=== PATIENT | female | born 1980 ===

== ENCOUNTER 2020-07-31 19:12 | Outpatient (REF) | payer SELFPAY ==
--- NOTE | 2020-07-31 | MR_ITS ---
EXAMINATION: MR LUMBAR SPINE WITHOUT CONTRAST CLINICAL INFORMATION: Lower back pain. Bilateral leg weakness, right leg numbness, bilateral leg pain, left toe numbness. COMPARISON: Multiple priors, most recent lumbar spine MRI dated 11/23/2012 TECHNIQUE: MRI of the lumbar spine was obtained using routine sequences without contrast. FINDINGS: VERTEBRAL BODIES AND PARASPINAL STRUCTURES: There appear to be 6 [id number] lumbar-type vertebral bodies. The superior-most of which will be labeled T12 as on a saved image and keeping with labeling on the prior examination. Normal vertebral body alignment. The lumbar lordosis is maintained. No acute fracture or subluxation. No loss of vertebral body height. Loss of intervertebral disc height with disc desiccation at T11-T12 and L5-S1. Redemonstration of a right midpole simple-appearing renal cyst. Otherwise, the visualized paraspinal soft tissues are unremarkable. CONUS MEDULLARIS AND CAUDA EQUINA: Normal, terminating at the level of L1. SPINAL LEVELS: T11-T12: Posterior central disc protrusion which partially effaces the ventral thecal sac. No significant central canal or neural foraminal stenosis. Findings are unchanged. T12-L1: Shallow right paracentral disc protrusion without significant central canal or neural foraminal stenosis. Findings are unchanged. L1-L2: No significant disc bulge. No central canal or neural foraminal stenosis. L2-L3: Minimal broad-based disc bulge without significant central canal or neural foraminal stenosis, unchanged. L3-L4: Mild broad-based disc bulge with bilateral facet arthropathy and thickening of the ligamentum flavum causing mild bilateral neural foraminal stenosis, progressed when compared to the prior examination. L4-L5: Broad-based disc bulge, asymmetric to the left, with bilateral facet arthropathy and thickening of the ligamentum flavum causing mild central canal and mild bilateral neural foraminal stenosis. Findings have progressed when compared to the prior examination. L5-S1: Broad-based disc bulge with a superimposed left subarticular disc protrusion which contacts the exiting left L5 nerve root as well as the traversing left S1 nerve root. Bilateral facet arthropathy with moderate right and [id number] left neural foraminal stenosis. Overall, findings are similar when compared to the prior examination. MR/MR lumbar spine wo con IMPRESSION: 1. Redemonstration of an L5-S1 broad-based disc bulge and superimposed left subarticular disc protrusion which contacts the exiting left L5 nerve root as well as the traversing left S1 nerve root. Bilateral facet arthropathy with moderate right and [id number]-ij-[id number] left neural foraminal stenosis. Findings are similar when compared to the MRI from 2013. 2. L3-L4 mild broad-based disc bulge with bilateral facet arthropathy and thickening of the ligamentum flavum causing mild bilateral neural foraminal stenosis, slightly progressed when compared to the prior examination. 3. L4-L5 broad-based disc bulge, asymmetric to the left, with bilateral facet arthropathy and thickening of the ligamentum flavum causing mild central canal as well as mild bilateral neural foraminal stenosis, slightly progressed when compared to the prior examination.
== END 2020-07-31 19:13 | disposition home or self-care (01) ==
LOC: HO.MRI 19:12
PROVIDERS: Visit Provider Internal Medicine
DX: M51.26 Other intervertebral disc displacement, lumbar region (principal)
CPT/HCPCS: 72148

== ENCOUNTER 2021-04-14 08:11 | Outpatient (REF) | payer MEDICAID, SELFPAY ==
[2021-04-14 09:58] LABS: Hematocrit 40.3 % (37-47); Hemoglobin 12.8 g/dl (12.0-16.0); Mean Corpuscular HGB Conc 31.8 g/dl (31.0-35.0); Mean Corpuscular Hemoglobin 25.9 pg (27.0-33.0); Mean Corpuscular Volume 81.6 fL (80-98); Mean Platelet Volume 10.4 fL (9.4-12.3); Platelet Count 279 X10*3/uL (160-400); Red Blood Count 4.94 X10*6/uL (4.20-5.50); Red Cell Distribution Width 16.4 % (11.0-16.0); White Blood Count 8.2 X10*3/uL (4.8-10.8)
[2021-04-14 11:17] LABS: TSH reflex Free T4 0.42 uIU/mL (0.32-4.0)
== END 2021-04-14 08:12 | disposition home or self-care (01) ==
LOC: HO.LAB 08:11
PROVIDERS: PCP Internal Medicine; Referring Provider Internal Medicine; Visit Provider Nurse Practitioner Family
DX: K21.9 Gastro-esophageal reflux disease without esophagitis (principal)
CPT/HCPCS: 36415; 84443; 85027; 99202

== ENCOUNTER 2021-09-04 09:31 | Outpatient (REF) | payer MEDICAID, SELFPAY ==
--- NOTE | 2021-09-04 08:41 | EMG_ITS ---
Bilateral median and ulnar motor and sensory studies were performed. Bilateral radial sensory studies were performed and paraspinal muscles were tested. IMPRESSION: 1. Dorj-zt-nupcbnhl left and mild right median neuropathy across carpal tunnel. 2. Mild bilateral ulnar neuropathy across cubital tunnel. MD KINGS [place]/STEF / [id number]
== END 2021-09-04 09:32 | disposition home or self-care (01) ==
LOC: HO.NEURO 09:31
PROVIDERS: Visit Provider Internal Medicine
DX: R20.0 Anesthesia of skin (principal)
CPT/HCPCS: 95886; 95911

== ENCOUNTER 2021-09-12 08:56 | Emergency (ER) | payer MEDICAID, SELFPAY ==
[2021-09-12 09:07] VITALS: BP 151/81; PULSE 89; RESP 18; TEMP 36.9; O2SAT 99; BMI 32.1
[2021-09-12 09:30] LABS: COVID-19 Test Positive (Negative)
--- NOTE | 2021-09-12 10:14 | ED.GENADULT ---
HPI - General Adult General Chief complaint: Upper Respiratory Symptoms Stated complaint: Body aches/sore throat Time Seen by Provider: 09/12/21 09:24 History of Present Illness HPI narrative: Patient complains of cough body aches fatigue runny nose and a mild headache, she did have a close COVID exposure and symptoms have been going on for 3 days, she is not vaccinated Related Data Home Medications Medication Instructions Recorded Confirmed omeprazole 40 mg capsule,delayed 40 mg PO DAILY 04/14/21 release Previous Rx's Medication Instructions Recorded famotidine 20 mg tablet (Pepcid) 20 mg PO BEDTIME #30 tab 04/14/21 Allergies Allergy/AdvReac Type Severity Reaction Status Date / Time ibuprofen [IBUPROFEN] Allergy Unknown ABDOMINAL Verified 09/12/21 09:07 PAIN metformin [METFORMIN] Allergy Unknown ANAPHYLAXIS Verified 09/12/21 09:07 shrimp [SHRIMP] Allergy Unknown ANAPHYLAXIS Verified 09/12/21 09:07 theophylline [Theophylline] Allergy Unknown RASH Verified 09/12/21 09:07 theodur Allergy Unknown vomiting Uncoded 04/28/12 00:00 Review of Systems Review of Systems: Positive for runny nose mild cough body aches fatigue for 3 days Negatives are no fever no chills no dizziness no weakness no fainting no feeling faint no stiff neck no sore throat no chest pain no shortness of breath no sputum no abdominal pain no nausea or vomiting Yes all other systems are reviewed and are negative PMFSH Past Medical History Source: nursing notes reviewed Social History Social History Advance Directives: No Advance Directives Information Provided: Yes Physical Exam Vital Signs: Vital Signs: Last Vital Signs Temp 98.5 F 09/12/21 09:07 Pulse 89 09/12/21 09:07 Resp 18 09/12/21 09:07 BP 151/81 H 09/12/21 09:07 Pulse Ox 99 09/12/21 09:07 BMI result Body Mass Index 32.1 General appearance no distress Eyes no redness or discharge The sinuses nontender The pharynx is clear with no redness swelling or exudate, mucous membranes moist Neck is supple Chest clear to auscultation bilateral Heart no murmur Abdomen soft nontender Extremities full range of motion x4 Course Course Course Narrative: Patient is diabetic, unvaccinated and COVID positive so is referred for monoclonal antibody treatment Patient is well-appearing now and is discharged Medical Decision Making Lab Data Labs: Lab Results 09/12/21 Range/Units 09:12 COVID-19 ([facility]) Positive A (Negative) COVID-19 Clin Com See Note Discharge Plan Discharge Clinical Impression: COVID-19 Patient Disposition: Home, Self-Care Additional Instructions: You tested positive for COVID Because of her diabetes you at higher risk for severe disease so we highly recommend you go for the monoclonal antibodies which reduce severity of COVID You have the sheet and if they do not call you you can call them Return to the ER any time any worse condition or any concerns, especially shortness of Prescriptions: No Action famotidine [Pepcid] 20 mg tablet 20 mg PO BEDTIME Qty: 30 RF: 3 Stand Alone Forms: Work/School Release Interventions: ED Discharge Assessment Last Done: 09/12/21 10:27 Discharge Date/Time: 09/12/21 10:27
== END 2021-09-12 10:27 | disposition home or self-care (01) ==
PROVIDERS: Emergency Provider Emergency Medicine; PCP Internal Medicine
DX: U07.1 COVID-19 (principal)
CPT/HCPCS: 36415; 87635; 99283

== ENCOUNTER 2021-09-17 10:00 | Emergency (ER) | payer MEDICAID, SELFPAY ==
--- NOTE | ~2021-09-17 | CT_ITS ---
EXAMINATION: CT BRAIN AND CT CERVICAL SPINE WITHOUT CONTRAST CLINICAL INFORMATION: Fall. Neck pain and headache. COMPARISON: None TECHNIQUE: 5 minutes thin axial and reformatted 2 mm thin sagittal coronal images of brain were obtained. Subsequently axial 3 mm thin and reformatted 2 minutes thin sagittal coronal images of cervical spine were obtained. DLP 2300 FINDINGS: Brain: There is no acute intra-axial, extra-axial bleed, masses or midline shift. Both lateral ventricles are symmetrical in size and configuration without enlargement. There is no acute infarction in evolution. There is no edema. The marcano to white matter difference is maintained normal. Bone windows reveal no calvarial abnormality. There is no scalp soft tissue abnormality either. Bilateral paranasal sinuses and mastoid air cells are well-aerated. Cervical spine: There is mild straightening of cervical lordosis. The vertebral heights, alignment and disc heights are normal. There is mild ventral and posterior spondylosis C4-C5 and C5-C6 disc levels. The craniovertebral junction and the C1-C2 alignment is normal. The prevertebral and paravertebral soft tissues are normal. The airway is widely patent. The lung apices are clear. CT/CT cervical spine wo con IMPRESSION: No acute intracranial process seen. Mild straightening of cervical lordosis likely spasm or positional. There is no visible acute fracture, dislocation or subluxation.
--- NOTE | ~2021-09-17 | CT_ITS ---
EXAMINATION: CT BRAIN AND CT CERVICAL SPINE WITHOUT CONTRAST CLINICAL INFORMATION: Fall. Neck pain and headache. COMPARISON: None TECHNIQUE: 5 minutes thin axial and reformatted 2 mm thin sagittal coronal images of brain were obtained. Subsequently axial 3 mm thin and reformatted 2 minutes thin sagittal coronal images of cervical spine were obtained. DLP 2300 FINDINGS: Brain: There is no acute intra-axial, extra-axial bleed, masses or midline shift. Both lateral ventricles are symmetrical in size and configuration without enlargement. There is no acute infarction in evolution. There is no edema. The marcano to white matter difference is maintained normal. Bone windows reveal no calvarial abnormality. There is no scalp soft tissue abnormality either. Bilateral paranasal sinuses and mastoid air cells are well-aerated. Cervical spine: There is mild straightening of cervical lordosis. The vertebral heights, alignment and disc heights are normal. There is mild ventral and posterior spondylosis C4-C5 and C5-C6 disc levels. The craniovertebral junction and the C1-C2 alignment is normal. The prevertebral and paravertebral soft tissues are normal. The airway is widely patent. The lung apices are clear. CT/CT head/brain wo con IMPRESSION: No acute intracranial process seen. Mild straightening of cervical lordosis likely spasm or positional. There is no visible acute fracture, dislocation or subluxation.
--- NOTE | ~2021-09-17 | XR_ITS ---
EXAMINATION: XR CHEST CLINICAL INFORMATION: SOB, fall, diminished lung sounds. COMPARISON: None TECHNIQUE: Frontal view of the chest was obtained. FINDINGS: The lungs are well-expanded and clear of acute pneumonic process. There is platelike atelectasis right midlung. Heart size and pulmonary vascularity is normal. No gross bony abnormality seen. XR/XR chest 1V IMPRESSION: Platelike atelectasis right midlung.
--- NOTE | ~2021-09-17 | CT_ITS ---
EXAMINATION: CT CHEST, ABDOMEN AND PELVIS WITH CONTRAST CLINICAL INFORMATION: Chest pain with cough and shortness of breath with abdominal and pelvic pain. COMPARISON: No pertinent prior studies are available for comparison. TECHNIQUE: Multidetector volumetric imaging was performed from the thoracic inlet through the pubic symphysis following administration of oral and intravenous contrast of 100 mL Ultravist-300 intravenous contrast. Sagittal and coronal reformatted images were obtained on the technologist workstation. This CT examination was performed using dose optimization techniques as appropriate, variously including the following: *Automated exposure control *Adjustment of mA and/or kV according to patient size (this includes techniques or standardized protocols for targeted exams where dose is matched to indication/reason for exam; i.e. extremities or head) *Use of iterative reconstruction technique DLP: 979 mGy-cm. FINDINGS: CHEST: Lungs: The central airways are patent. No bronchial wall thickening or bronchiectasis is appreciated. There is some atelectatic change or scarring seen about the minor fissure and left lower lobe. No suspicious lung nodules are identified. Mediastinum: Visualized thyroid gland unremarkable. Heart normal size. No pericardial effusion. No thoracic aortic aneurysm. No mediastinal or hilar lymphadenopathy. Pericardium/Pleura: There is no significant effusion. No pleural mass or thickening. Chest Wall/Axilla: Unremarkable. ABDOMEN/PELVIS: Liver, Gallbladder, Biliary Tree: The liver is normal in size, shape, and attenuation. No focal hepatic lesion or biliary ductal dilatation is present. No subcapsular fluid collection identified. Status post cholecystectomy. Pancreas: Unremarkable. Spleen: Unremarkable. No evidence of laceration or subcapsular fluid collection. Adrenal Glands: Unremarkable. Kidneys and Ureters: The kidneys are normal in size, shape, and attenuation. No hydronephrosis or hydroureter or calculi seen. No perinephric stranding. There is approximately 1.3 cm low-density region which is faintly seen within the interpolar region of the right kidney and likely represents a cyst. Bladder: Very distended but normal in appearance. Gastrointestinal Tract: No dilated loops of large or small bowel identified. No free air or free fluid. No pericolonic inflammatory change. No evidence of acute appendicitis. Abdominal Wall: No hernia is demonstrated. Lymph Nodes: No lymphadenopathy appreciated. Vascular: Unremarkable. Pelvic Viscera: Unremarkable. Osseous Structures: Findings of enthesopathy seen about the pelvis. There is facet degenerative change seen L4-S1. No acute fracture identified. Disc space narrowing is noted at the L5-S1 level. CT/CT abdomen pelvis wo con IMPRESSION: No significant acute abnormality of the chest, abdomen, or pelvis identified.
[2021-09-17 10:16] VITALS: BP 157/90; PULSE 92; O2SAT 99
[2021-09-17 10:25] VITALS: BP 148/90; PULSE 74; RESP 16; TEMP 37; O2SAT 100; BMI 36.2
--- NOTE | 2021-09-17 10:50 | ED_ITS ---
HPI - Fall General Chief Complaint: Fall Stated Complaint: FALL ON ICEY STEPS,MID/LOW BACK PAIN,ON GROUND 1HR Time Seen by Provider: 09/17/21 10:49 Source: patient Mode of arrival: EMS Limitations: no limitations History of Present Illness HPI Narrative: This is a 40-year-old female presents to the emergency department status post slip and fall down the stairs, patient tells me that when she fell she hit her lower back, and then hit her neck, she tells me she was unable to get up, she reports severe cervical spine, thoracic spine and lumbar spine pain. She tells me she was unable to stand up from the ground, she tells me she laid on the ground for about 45 minutes before EMS arrived. She is not sure if she lost consciousness or not. She tells me she was in severe pain and she can not remember. Patient is not on blood thinners. She tells me that she can not feel her toes, denies sensory and motor deficits, denies paresthesias, numbness, tingling, weakness. She tells me she feels a she needs to urinate but she is unable to. No saddle paresthesias. Patient is COVID + report slight SOB. complaint: fall Onset (ago): minute(s) (45) Fall from: standing Fall witnessed: no Place fall occurred: home Loss of consciousness: unsure Prolonged down time: no Symptoms prior to fall: none Context: tripped/slipped Location of injury: head, neck, back and pelvis Severity: severe Severity scale (1-10): 10 Associated symptoms (after fall): headache and neck pain Related Data Home Medications Medication Instructions Recorded Confirmed omeprazole 40 mg capsule,delayed 40 mg PO DAILY 04/14/21 release Previous Rx's Medication Instructions Recorded famotidine 20 mg tablet (Pepcid) 20 mg PO BEDTIME #30 tab 04/14/21 cyclobenzaprine 10 mg tablet 10 mg PO BEDTIME PRN #7 tab 09/17/21 Allergies Allergy/AdvReac Type Severity Reaction Status Date / Time ibuprofen [IBUPROFEN] Allergy Unknown ABDOMINAL Verified 09/12/21 09:07 PAIN metformin [METFORMIN] Allergy Unknown ANAPHYLAXIS Verified 09/12/21 09:07 shrimp [SHRIMP] Allergy Unknown ANAPHYLAXIS Verified 09/12/21 09:07 theophylline [Theophylline] Allergy Unknown RASH Verified 09/12/21 09:07 theodur Allergy Unknown vomiting Uncoded 04/28/12 00:00 Review of Systems Review of Systems: Constitutional : No Fever, No Chills, Cardiovascular : No Chest Pain, No SOB Respiratory : No Dyspnea Gastrointestinal : No abdominal pain Musculoskeletal : No Joint Swelling. + Joint pain Skin : No rash, No skin laceration Neuro : No Weakness, No Numbness Psych : No SI/HI Yes all other systems are reviewed and are negative [facility] Past Medical History Attestation statement: The following information was validated with the patient. Source: old records reviewed and nursing notes reviewed Medical History (Updated 09/17/21 @ 11:33 by SHYANNE Harris) Asthma Diabetes Social History Social History Advance Directives: No Advance Directives Information Provided: No Physical Exam Vital Signs: Vital Signs: Last Vital Signs Temp 98.6 F 09/17/21 10:25 Pulse 74 09/17/21 10:25 Resp 16 09/17/21 10:25 BP 148/90 H 09/17/21 10:25 Pulse Ox 100 09/17/21 10:25 BMI result Body Mass Index 36.2 VSS Appearance: Alert.? Oriented X3.? No acute distress.? Head: Normocephalic, atraumatic, no step-offs or deformities Eyes: Pupils equal, round and reactive to light.? ENT: Pharynx normal.? Neck: Normal inspection.? Neck supple.? CVS: Normal heart rate and rhythm.? Pulses normal.? Respiratory: No respiratory distress.? + diminished BS to left side. Abdomen: Soft and nontender.? Skin: Skin warm and dry.? Normal skin color.? Normal skin turgor.? Extremities: No lower extremity edema.? No calf ttp. 5/5 strength to bilateral upper and lower extremities Back: + c spine tenderness + pain w/ palpation on midline of lumbar, thoracic spine and sacral area. No overlying skin changes Neuro: Oriented X 3.? No motor deficit.? No sensory deficit. No saddle paresthesias. Proprioception intact to bilateral lower extremities. Course Reevaluation(s) Reevaluation #1: Chest x-ray shows platelike atelectasis, no signs of pneumothorax or acute rib fractures. CT of abdomen/ pelvis with no acute findi ngs. No abnormalities of the cervical spine or head/ brain CT. No intracranial hemorrhages, subluxations or fractures noted. At this time I cleared C-spine, patient tells me that he still having pain. I will give her Tylenol for her pain. Time: 11:30 Reevaluation #2: At this time patient is up and moving, no acute distress. She is ambulating well. Pain resolved after Tylenol. She feels better and wants to leave, urinating on her own, no sensory motor deficits. Little to no suspicion for cauda equina/epidural abscess. Likely a muscle strain secondary to fall. Comfortable discharge home with PCP follow-up. Time: 16:13 MDM - Fall MDM Narrative Medical decision making narrative: 1055 40 yo F presents to ed s/p trip and fall hitting her head, neck and back. In severe pain, no redflag symptoms. PE c spine tenderness there is pain w/ palpation on midline of lumbar, thoracic spine and sacral area. No overlying skin changes No sensory or motor deficits. No saddle paresthesias. LS dinished on left. Plan CT of abdomen and pelvis, cervical spine, chest, head, lumbar spine, thoracic spine. A chest x-ray will also be done to rule out pneumothorax. Medical Records Attestation: I reviewed the patient's medical records. Lab Data Attestation: I reviewed the patient's lab results. Labs: Lab Results 09/17/21 Range/Units 12:34 COVID-19 ([facility]) Positive A (Negative) COVID-19 Clin Com See Note Imaging Data Chest x-ray: Attestation: I personally reviewed and interpreted this imaging study as follows: Radiologist's impression: FINDINGS: The lungs are well-expanded and clear of acute pneumonic process. There is platelike atelectasis right midlung. Heart size and pulmonary vascularity is normal. No gross bony abnormality seen. XR/XR chest 1V IMPRESSION: Platelike atelectasis right midlung. CT of the cervical spine, head / brain.: Attestation: I personally reviewed and interpreted this imaging study as follows: Radiologist's impression: CT/CT cervical spine wo con IMPRESSION: No acute intracranial process seen. ? Mild straightening of cervical lordosis likely spasm or positional. There is no visible acute fracture, dislocation or subluxation.? Chest, abdomen and pelvis CT.: Attestation: I personally reviewed and interpreted this imaging study as follows: Radiologist's impression: CT/CT chest wo con IMPRESSION: No significant acute abnormality of the chest, abdomen, or pelvis identified.? Critical Care Time Critical Care Time Critical Care Time: No Discharge Plan Discharge Clinical Impression: Fall, COVID-19 Patient Disposition: Home, Self-Care Instructions: Fall Prevention (ED), COVID-19 (Coronavirus Disease 2019) (ED) Additional Instructions: Take your medications as prescribed. If you were prescribed antibiotics today, it is important that you take your medication to their entirety, do not skip any doses, do not finish them early. Today you tested positive for COVID-19. Take Ibuprofen or Tylenol as needed for fevers or body aches. Quarantine for 7 days and ensure you wear a mask. After 7 days you should wear a mask for 3 days after that. Practice social distancing and good hand hygiene. Drink plenty of fluids. Follow-up with your primary care provider this week. Return to the emergency department with new or worsening symptoms. In case of emergency call 911 You can purchase a pulse oximeter from your local pharmacy or grocery store, and monitor your oxygen saturation if it goes below 94% you should return to the emergency department for further evaluation. If You Test Positive for COVID-19 (Isolate) Everyone, regardless of vaccination status. * Stay home for 5 days. * If you have no symptoms or your symptoms are resolving after 5 days, you can leave your house. * Continue to wear a mask around others for 5 additional days. If you have a fever, continue to stay home until your fever resolves. If You Were Exposed to Someone with COVID-19 (Quarantine) If you: Have been boosted OR Completed the primary series of Pfizer or Moderna vaccine within the last 6 months OR Completed the primary series of J&J vaccine within the last 2 months * Wear a mask around others for 10 days. * Test on day 5, if possible. If you develop symptoms get a test and stay home. If you: Completed the primary series of Pfizer or Moderna vaccine over 6?months ago and are not boosted OR Completed the primary series of J&J over 2 months ago and are not boosted OR Are unvaccinated * Stay home for 5 days. After that continue to wear a mask around others for 5 additional days. * If you can?t quarantine you must wear a mask for 10 days. * Test on day 5 if possible. If you develop symptoms get a test and stay home Prescriptions: New cyclobenzaprine 10 mg tablet 10 mg PO BEDTIME PRN (Reason: muscle spasm) Qty: 7 RF: 0 No Action famotidine [Pepcid] 20 mg tablet 20 mg PO BEDTIME Qty: 30 RF: 3 Referrals: Physician,Unknown J [Primary Care Provider] - 2 days Stand Alone Forms: Work/School Release
[2021-09-17 12:51] LABS: COVID-19 Test Positive (Negative)
[2021-09-17] MEDS: Acetaminophen 325 MG TABLET 650 MG PO (14:42)
== END 2021-09-17 16:46 | disposition home or self-care (01) ==
PROVIDERS: Physician Assistant; Emergency Provider Emergency Medicine
DX: Z04.3 Encounter for examination and observation following other accident (principal); U07.1 COVID-19; E11.9 Type 2 diabetes mellitus without complications; J45.909 Unspecified asthma, uncomplicated; Z91.81 History of falling
CPT/HCPCS: 70450; 71045; 71250; 72125; 74176; 87635; 99283; 99284

== ENCOUNTER → 2021-10-01 09:05 | Outpatient (BNVA) | payer MEDICAID, SELFPAY | PROVIDERS: PCP Internal Medicine; Visit Provider Orthopaedic Surgery | DX: G56.03 Carpal tunnel syndrome, bilateral upper limbs (principal); G56.23 Lesion of ulnar nerve, bilateral upper limbs | CPT/HCPCS: 99202 ==

== ENCOUNTER → 2021-10-09 09:17 | Outpatient (BNVA) | payer MEDICAID, SELFPAY | PROVIDERS: PCP Internal Medicine; Referring Provider Internal Medicine; Visit Provider Nurse Practitioner Family ==

== ENCOUNTER 2021-10-09 09:50 | Outpatient (REF) | payer MEDICAID, SELFPAY | END 2021-10-09 09:51 | disposition home or self-care (01) | LOC: HO.LNP 09:50 | PROVIDERS: Visit Provider Nurse Practitioner Family | DX: K21.9 Gastro-esophageal reflux disease without esophagitis (principal); Z11.0 Encounter for screening for intestinal infectious diseases; J45.909 Unspecified asthma, uncomplicated; E11.9 Type 2 diabetes mellitus without complications; Z88.8 Allergy status to other drugs, medicaments and biological substances; Z91.013 Allergy to seafood | CPT/HCPCS: 87338; 99212 ==

== ENCOUNTER 2021-10-30 06:27 | Day surgery (SDC) | payer MEDICAID, SELFPAY ==
[2021-10-22 20:01] VITALS: BMI 34.0
--- NOTE | 2021-10-29 09:24 | HO.ANESPROP2 ---
Documented by User: Oriana Woods NP 10/29/21 09:26 HPI - Anesthesia Eval Consult details Narrative: 40yo F for Left Cubital Tunnel Release vs transposition, Carpal Tunnel Release PMFSH Active Problems Active Problems: All Active Problems (Updated 10/22/21 @ 19:58 by Moriah Beck RN) COVID-19 (Acute) Carpal tunnel syndrome of left wrist (Acute) Carpal tunnel syndrome of right wrist (Acute) Cubital tunnel syndrome on left (Acute) Cubital tunnel syndrome on right (Acute) Past Medical History Medical History Anxiety Arthritis Asthma Back pain Depression Diabetes GERD (gastroesophageal reflux disease) Smoker Family History Family History Maternal Grandmother Diabetes Blind Stomach cancer Paternal Grandmother Diabetes Blind Breast cancer Mother Diabetes Heart problem Father Heart problem Pre-diabetes Brother Prostate cancer Sister Lupus Sister Ovarian cancer Paternal Uncle Pancreatic cancer Social History Social History Patient Tobacco Use Status: Current everyday Tobacco user Tobacco use type: Cigarette Cigarette Packs Per Day: 0.5 Cigarettes Per Day: 10.0 Years Smoked: 20 Current occupational status: employed 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 Allergies Allergy/AdvReac Type Severity Reaction Status Date / Time ibuprofen [IBUPROFEN] Allergy Unknown ABDOMINAL Verified 10/09/21 09:23 PAIN metformin [METFORMIN] Allergy Unknown ANAPHYLAXIS Verified 10/09/21 09:23 shrimp [SHRIMP] Allergy Unknown ANAPHYLAXIS Verified 10/09/21 09:23 theophylline [Theophylline] Allergy Unknown RASH Verified 10/09/21 09:23 theodur Allergy Unknown vomiting Uncoded 10/09/21 09:23 Home Medications Medication Instructions Recorded Confirmed Last Taken Type albuterol sulfate 200 mcg capsule 1 mcg INHALATION DAILY 10/01/21 10/22/21 Unknown History with inhalation device dulaglutide 0.75 mg/0.5 mL 0.75 mg SUBCUT QWEEK 10/01/21 10/22/21 Unknown History subcutaneous pen injector (Trulicity) fluticasone propionate 50 1 spray INTRANASAL DAILY 10/01/21 10/22/21 Unknown History mcg/actuation nasal spray,suspension (Flonase Allergy Relief) glipizide 5 mg tablet 5 mg PO DAILY 10/01/21 10/22/21 Unknown History lancets 31 gauge (Comfort Touch 10/01/21 10/22/21 Unknown History Ultra Thin Lancets) Exam Exam Date and Time: October 29, [id number] Height,Weight and Vital Signs: Height 5 ft 4 in Weight 89.811 kg Assessment and Plan Assessment Anesthesia Assessment: Chart Reviewed Documented by User: Nikhil Buchanan MD 10/30/21 12:34 [facility] Past Medical History Medical History Anxiety Arthritis Asthma Back pain Depression Diabetes GERD (gastroesophageal reflux disease) Smoker Family History Family History Maternal Grandmother Diabetes Blind Stomach cancer Paternal Grandmother Diabetes Blind Breast cancer Mother Diabetes Heart problem Father Heart problem Pre-diabetes Brother Prostate cancer Sister Lupus Sister Ovarian cancer Paternal Uncle Pancreatic cancer Family history of problems with anesthesia: No Surgical History History of Problems with Anesthesia: No Social History Social History Patient Tobacco Use Status: Current everyday Tobacco user Tobacco use type: Cigarette Cigarette Packs Per Day: 0.5 Cigarettes Per Day: 10.0 Years Smoked: 20 Current occupational status: employed 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 Allergies Allergy/AdvReac Type Severity Reaction Status Date / Time ibuprofen [IBUPROFEN] Allergy Unknown ABDOMINAL Verified 10/09/21 09:23 PAIN metformin [METFORMIN] Allergy Unknown ANAPHYLAXIS Verified 10/09/21 09:23 shrimp [SHRIMP] Allergy Unknown ANAPHYLAXIS Verified 10/09/21 09:23 theophylline [Theophylline] Allergy Unknown RASH Verified 10/09/21 09:23 theodur Allergy Unknown vomiting Uncoded 10/09/21 09:23 Home Medications Medication Instructions Recorded Confirmed Last Taken Type albuterol sulfate 200 mcg capsule 1 mcg INHALATION DAILY 10/01/21 10/22/21 Unknown History with inhalation device dulaglutide 0.75 mg/0.5 mL 0.75 mg SUBCUT QWEEK 10/01/21 10/22/21 Unknown History subcutaneous pen injector (Trulicity) fluticasone propionate 50 1 spray INTRANASAL DAILY 10/01/21 10/22/21 Unknown History mcg/actuation nasal spray,suspension (Flonase Allergy Relief) glipizide 5 mg tablet 5 mg PO DAILY 10/01/21 10/22/21 Unknown History lancets 31 gauge (Comfort Touch 10/01/21 10/22/21 Unknown History Ultra Thin Lancets) Exam Airway Mallampati Class: II TM Dist: >3cm Neck ROM: Full Loose/Missing/Broken Teeth: Yes Assessment and Plan Assessment Anesthesia Assessment: Anesthesia Plan Discussed Final Anesthetic Review Family History of Problems with Anesthesia: No History of Problems with Anesthesia: No NPO: Yes ASA Class: III Final Preanesthetic Review: No Changes in Pt Med Stat, Meds/Allgs Chart Reviewed, Consent Obtained/Reviewed and Anes Risks/Benef Reviewed Patient Risk: Intermediate Procedure Risk: Low Anesthetic Plan Anesthetic Plan: GA Disposition: Standard PACU
[2021-10-30] VITALS (7 sets, daily range): BP systolic 142–167; BP diastolic 86–101; PULSE 70–90; RESP 16–18; TEMP 36.3–36.9; O2SAT 96–100
[2021-10-30 06:46] LABS: UPreg QC Valid YES; Urine Pregnancy NEGATIVE (NEGATIVE)
[2021-10-30 06:59] LABS: Glucose, Whole Blood 254 mg/dL (60-115)
[2021-10-30] MEDS: Lactated Ringers 1,000 ML 100 ML IVCONT (07:02)
--- NOTE | 2021-10-30 07:56 | MHC.SHP ---
Pre-Procedural Eval Section A Date of Service: 10/30/21 The patient is an INPATIENT: No Changes since office visit: No Cold of Flu in the past 2 weeks, No New Medical Problems, No Changes in Medication and No Patient answered all questions The History & Physical has been completed within 30 days and I have reviewed it.: Yes Section B Chief Complaint: carpal tunnel syndrome,lesion of ulnar nerve Allergies: Allergies Allergy/AdvReac Type Severity Reaction Status Date / Time ibuprofen [IBUPROFEN] Allergy Unknown ABDOMINAL Verified 10/09/21 09:23 PAIN metformin [METFORMIN] Allergy Unknown ANAPHYLAXIS Verified 10/09/21 09:23 shrimp [SHRIMP] Allergy Unknown ANAPHYLAXIS Verified 10/09/21 09:23 theophylline [Theophylline] Allergy Unknown RASH Verified 10/09/21 09:23 theodur Allergy Unknown vomiting Uncoded 10/09/21 09:23 Plan I have reviewed the history and physical and performed a pertinent physical examination on my patient. No changes have occurred unless specified.
--- NOTE | 2021-10-30 07:56 | W.PM.OPN ---
Operative Note Operative Note Date of Service: 10/30/21 Narrative: Operative Note Narrative: Preop diagnosis: 1. Left Cubital tunnel syndrome 2. Left carpal tunnel syndrome Postop diagnosis: Same Procedure: 1. left Cubital Tunnel Release 2. Left carpal tunnel release Surgeon: Thu Gongora MD Anesthesia: General Findings: Thickening and fibrosis about the ulnar nerve at the cubital tunnel Implants: none Tourniquet time: 28 minutes EBL: 5.0 ml Specimen: none Drains: None Complications: None Disposition: Brought to the recovery room in stable condition Plan: Follow-up in 10-14 days for wound check, and suture removal Indications: The patient is 40 years old with left cubital tunnel syndrome and left carpal tunnel syndrome . The risks and benefits of operative treatment, including but not limited to risk of damage to blood vessels, nerves, tendons, infection, recurrence, persistent pain or numbness, incomplete resolution of preoperative symptoms, or need for further surgery were discussed with the patient and they wished to proceed with surgery. Procedure: Once consent was obtained patient was brought back to the operating suite and placed in the operating table in a supine position. Perioperative antibiotics and anesthesia was administered by the anesthesia team. The limb was prepped and draped in a standard surgical fashion, and a sterile tourniquet applied to the proximal aspect of the left upper extremity. The limb was elevated exsanguinated with Esmarch bandage and the tourniquet inflated to 250 mm of mercury for a total tourniquet time of 28 minutes. Once assured that we had a good block, a 1.5 cm longitudinal incision was made centered over the left carpal tunnel. The incision was made through the skin to the subcutaneous tissues using a #15 blade. Dissection was made down to the level of the transverse carpal ligament with care being taken to protect the palmar cutaneous nerve. Once the transverse carpal ligament was clearly visualized, a longitudinal incision was made in the transverse carpal ligament 1st using a #15 blade, then using tenotomy scissors under direct visualization. Care was taken to look for and protect the motor branch of the median nerve when seen in this area. Once satisfied with our carpal tunnel release the wound was irrigated with normal saline. A 6 cm gently curved but longitudinally oriented incision was made centered over the cubital tunnel of the left upper extremity. Incision was made through the skin to the subcutaneous tissues using a # 15 Blade. I then dissected down to the level of the medial epicondyle and the cubital tunnel using tenotomy scissors. Care was taken to protect the lateral antebrachial cutaneous nerve. The ulnar nerve was identified just posterior to the medial intermuscular septum. The ulnar nerve was released in a proximal to distal direction using tenotomy in iris scissors while directly visualizing and protecting the ulnar nerve. Thickening and fibrosis was appreciated about the ulnar nerve as it passed through the cubital tunnel. The ulnar nerve was assessed as I passed the elbow through full flexion and extension and was found to remain stable within its groove. At this point the tourniquet was deflated and hemostasis obtained with a brief period of local pressure and bipolar electrocautery. The wound was copiously irrigated with normal saline. The subcutaneous layer was closed with 4-0 Vicryl suture, and the skin edges were reapproximated with 5-0 nylon suture. The wound was infiltrated with some 0.25% plain Marcaine for postop pain control and sterile dressings and a posterior splint was applied. The patient appears to have tolerated the procedure well and with no complications. All digits were well vascularized conclusion of the case.
== END 2021-10-30 10:53 | disposition home or self-care (01) ==
PROVIDERS: Nurse Practitioner; PCP Internal Medicine; Visit Provider Orthopaedic Surgery
PROC: (CPT 64718; principal; 2021-10-30 07:30)
PROC: (CPT 64721; 2021-10-30 07:30)
DX: G56.02 Carpal tunnel syndrome, left upper limb (principal); G56.22 Lesion of ulnar nerve, left upper limb; R20.0 Anesthesia of skin; M79.89 Other specified soft tissue disorders; J45.909 Unspecified asthma, uncomplicated; E11.9 Type 2 diabetes mellitus without complications; Z79.84 Long term (current) use of oral hypoglycemic drugs; Z79.51 Long term (current) use of inhaled steroids; Z88.8 Allergy status to other drugs, medicaments and biological substances; Z86.16 Personal history of COVID-19
CPT/HCPCS: 64721; 64718; 81025; 82947; J0690; J1885; J2250; J2405; J3010

== ENCOUNTER → 2021-11-12 12:18 | Outpatient (BNVA) | payer MEDICAID, SELFPAY | PROVIDERS: Visit Provider Orthopaedic Surgery | DX: G56.02 Carpal tunnel syndrome, left upper limb (principal); G56.22 Lesion of ulnar nerve, left upper limb | CPT/HCPCS: 99212 ==

== ENCOUNTER 2021-11-19 10:09 | Day surgery (SDC) | payer MEDICAID, SELFPAY ==
[2021-11-19 10:25] LABS: UPreg QC Valid YES; Urine Pregnancy NEGATIVE (NEGATIVE)
[2021-11-19 10:35] VITALS: BP 148/97; PULSE 82; RESP 16; TEMP 35.8; O2SAT 99; BMI 33.7
[2021-11-19 10:35] LABS: Glucose, Whole Blood 212 mg/dL (60-115)
--- NOTE | 2021-11-19 10:38 | P.CONAN_ITS ---
[facility] Active Problems Active Problems: All Active Problems (Updated 10/22/21 @ 19:58 by Moriah Beck RN) COVID-19 (Acute) Carpal tunnel syndrome of left wrist (Acute) Carpal tunnel syndrome of right wrist (Acute) Cubital tunnel syndrome on left (Acute) Cubital tunnel syndrome on right (Acute) Past Medical History Medical History Anxiety Arthritis Asthma Back pain Depression Diabetes GERD (gastroesophageal reflux disease) Smoker Family History Family History Maternal Grandmother Diabetes Blind Stomach cancer Paternal Grandmother Diabetes Blind Breast cancer Mother Diabetes Heart problem Father Heart problem Pre-diabetes Brother Prostate cancer Sister Lupus Sister Ovarian cancer Paternal Uncle Pancreatic cancer Family history of problems with anesthesia: No Surgical History History of Problems with Anesthesia: No Social History Social History Patient Tobacco Use Status: Current everyday Tobacco user Tobacco use type: Cigarette Cigarette Packs Per Day: 0.5 Cigarettes Per Day: 5 Years Smoked: 20 Substance Use Frequency: Daily Are you DNR?: No Advance Directives: No Advance Directives Information Provided: Yes Current occupational status: employed 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 Allergies Allergy/AdvReac Type Severity Reaction Status Date / Time ibuprofen [IBUPROFEN] Allergy Unknown ABDOMINAL Verified 11/12/21 12:54 PAIN metformin [METFORMIN] Allergy Unknown ANAPHYLAXIS Verified 11/12/21 12:54 shrimp [SHRIMP] Allergy Unknown ANAPHYLAXIS Verified 11/12/21 12:54 theophylline [Theophylline] Allergy Unknown RASH Verified 11/12/21 12:54 theodur Allergy Unknown vomiting Uncoded 11/12/21 12:54 Home Medications Medication Instructions Recorded Confirmed Last Taken Type albuterol sulfate 200 mcg capsule 1 mcg INHALATION DAILY 10/01/21 10/22/21 Unknown History with inhalation device dulaglutide 0.75 mg/0.5 mL 0.75 mg SUBCUT QWEEK 10/01/21 10/22/21 Unknown History subcutaneous pen injector (Trulicity) fluticasone propionate 50 1 spray INTRANASAL DAILY 10/01/21 10/22/21 Unknown History mcg/actuation nasal spray,suspension (Flonase Allergy Relief) glipizide 5 mg tablet 5 mg PO DAILY 10/01/21 10/22/21 Unknown History lancets 31 gauge (Comfort Touch 10/01/21 10/22/21 Unknown History Ultra Thin Lancets) Exam Exam Date and Time: November 19, 2021 1038 Pertinent Lab Results Pertinent Lab Results: Laboratory Tests 11/19/21 11/19/21 10:10 10:31 POC Glucose 212 H Urine Test NEGATIVE Airway Mallampati Class: II TM Dist: >3cm Neck ROM: Full Heart: rrr Lungs: cta Assessment and Plan Assessment Anesthesia Assessment: Anesthesia Plan Discussed and Chart Reviewed Final Anesthetic Review Family History of Problems with Anesthesia: No History of Problems with Anesthesia: No NPO: Yes ASA Class: III Final Preanesthetic Review: No Changes in Pt Med Stat, Meds/Allgs Chart Reviewed and Consent Obtained/Reviewed Patient Risk: Intermediate Procedure Risk: Intermediate Anesthetic Plan Anesthetic Plan: MAC: Disposition: Standard PACU
--- NOTE | 2021-11-19 10:42 | MHC.SHP ---
Pre-Procedural Eval Section A Date of Service: 11/19/21 Section B Chief Complaint: GERD Relevant Family History (Specify if Yes): No Relevant Social History: Tobacco Use Present Medications: see Short Stay Collaborative assessment Medical History: Significant History (Anxiety Arthritis Asthma Back pain Depression Diabetes GERD (gastroesophageal reflux disease) Smoker) History of Previous Operations: No relevant previous surgery Allergies: Allergies Allergy/AdvReac Type Severity Reaction Status Date / Time ibuprofen [IBUPROFEN] Allergy Unknown ABDOMINAL Verified 11/12/21 12:54 PAIN metformin [METFORMIN] Allergy Unknown ANAPHYLAXIS Verified 11/12/21 12:54 shrimp [SHRIMP] Allergy Unknown ANAPHYLAXIS Verified 11/12/21 12:54 theophylline [Theophylline] Allergy Unknown RASH Verified 11/12/21 12:54 theodur Allergy Unknown vomiting Uncoded 11/12/21 12:54 Review of Systems Sugical H&P ROS: Negative: Constitution, Cardiovascular, Respiratory, Neurological, Psychiatric, Hem-Onc, Allergic/Immunologic, Gastrointestinal, Genitourinary, Musculoskeletal, Integumentary, Endocrine and Eyes/Ears/Nose/Throat Exam Surgical H&P Exam: Normal: HEENT, Normal: Heart, Normal: Lungs, Normal: Extremities, Normal: Abdomen, Normal: Skin and Normal: Neurological Plan Diagnosis/Plan: Unchanged I have reviewed the history and physical and performed a pertinent physical examination on my patient. No changes have occurred unless specified.
[2021-11-19] MEDS: Lactated Ringers 1,000 ML 50 ML IVCONT (10:44)
--- NOTE | 2021-11-19 10:44 | P.BOP_ITS ---
Brief Operative Note Date of Service: 11/19/21 Pre-op diagnosis: GERD Post-op diagnosis: same Procedure: see op note Surgeon: Devante Tobin MD Anesthesia: MAC Was an Elementary Education Teacher used for this Procedure?: No Estimated blood loss (mL): 0 Condition: stable Disposition: PACU
--- NOTE | 2021-11-19 11:19 | W.PM.OPN ---
Operative Note Operative Note Date of Service: 11/19/21 Narrative: Procedure Description: EGD FLEXIBLE TRANSORAL UPPER GASTROINTESTINAL ENDOSCOPY UPPER ENDOSCOPY Consent: Indications for the procedure and potential complications of bleeding, perforation, reaction to medications and missed diagnosis were discussed with the patient and informed consent was obtained. Instrument: Olympus GIF H 190 J mid size upper endoscope Monitoring: Vital signs and clinical assessment, continuous EKG monitoring, Pulse oximetry, Carbon Dioxide monitoring and blood pressure monitoring were done throughout the procedure. Procedure: The patient was placed in the left lateral decubitis position and pre-procedure medications were administered and a bite block was placed. The endoscope was inserted into the mouth and advanced under direct vision to the third part of duodenum. A careful inspection was made as the upper endoscope was withdrawn including a retroflexed examination of the proximal stomach; Findings and interventions are described below. Findings: Larynx:normal Esophagus: GE junction at 38 cm, diaphragm hiatus at 38 cm, no varices or esophagitis, non obstructive schatzki ring noted. Bx taken from GEJ and random esophagus Stomach: Patchy streaky gastric erythema in mid disal body of stomach with one erosion noted. Biopsies were obtained. Grade 2 flap valve on retroflexed examination of the cardia. There appeared to be reduced gastric motility Duodenum: Normal bulb and descending duodenum, bx taken Intervention: Biopsies as noted above Impression/Findings: gastritis gastric erosion schatzki ring possible gastroparesis PLAN: await bx result, check nsaid use hx if biopsies non revealing then gastric emptying study, can consider trial of carafate for gastric healing for 2-4 weeks as well
[2021-11-19 11:23] VITALS: BP 157/94; PULSE 107; RESP 20; TEMP 36.8; O2SAT 94
[2021-11-19 11:38] VITALS: BP 154/92; PULSE 77; RESP 20; TEMP 36.8; O2SAT 97
== END 2021-11-19 12:09 | disposition home or self-care (01) ==
PROVIDERS: Anesthesiology; PCP Internal Medicine; Visit Provider Internal Medicine Gastroenterology
PROC: 0DJ08ZZ Inspection of Upper Intestinal Tract, Via Natural or Artificial Opening Endoscopic (ICD-10-PCS; CPT 43235; principal; 2021-11-19 11:50)
DX: K21.9 Gastro-esophageal reflux disease without esophagitis (principal); K22.2 Esophageal obstruction; K29.50 Unspecified chronic gastritis without bleeding; K25.9 Gastric ulcer, unspecified as acute or chronic, without hemorrhage or perforation; K44.9 Diaphragmatic hernia without obstruction or gangrene; J45.909 Unspecified asthma, uncomplicated; E11.9 Type 2 diabetes mellitus without complications; Z79.84 Long term (current) use of oral hypoglycemic drugs; Z79.899 Other long term (current) drug therapy
CPT/HCPCS: 43239; 81025; 82947; 88305; 88342

== ENCOUNTER 2022-08-08 10:00 | Outpatient (REF) | payer MEDICAID, SELFPAY ==
--- NOTE | ~2022-08-08 | MM_ITS ---
EXAMINATION: MM SCREENING DIGITAL BREAST TOMOSYNTHESIS, BILATERAL CLINICAL INFORMATION: Screening. Asymptomatic. No prior breast imaging. Age 41. The lifetime risk of breast cancer based on the Tyrer-Cuzick Model is 13%. COMPARISON: None (current study represents initial baseline exam). TECHNIQUE: Digital breast tomosynthesis is performed in both the craniocaudal and mediolateral oblique views along with computer-aided detection (CAD). Synthesized 2D images are generated from the tomosynthesis. Additional bilateral MLO views are provided. FINDINGS: There are scattered areas of fibroglandular density (ACR BI-RADS breast composition Category b). There is a smooth 0.9 cm macrolobulated nodule posterior upper outer right breast 10 cm from nipple, likely intramammary node. As this represents initial baseline exam, patient will be recalled for additional targeted ultrasound. The breast parenchymal pattern is unremarkable with no architectural abnormality or abnormal calcifications. The skin contours are smooth. Axillary nodes are symmetric. MM/MM tomosynthesis screening BI IMPRESSION: Right: -Smooth macrolobulated nodule 0.9 cm posterior upper outer quadrant, likely intramammary node. Left: -No mammographic evidence of malignancy. ASSESSMENT: BI-RADS 0: Incomplete - Need Additional Imaging Evaluation RECOMMENDATION: 1. Targeted ultrasound right breast. 2. Radiology department staff will contact the patient for additional imaging. This patient's information was entered into a reminder system with a target due date for their next mammogram.
== END 2022-08-08 10:01 | disposition home or self-care (01) ==
LOC: HO.MAMMO 10:00
PROVIDERS: PCP Internal Medicine; Visit Provider Internal Medicine
DX: Z12.31 Encounter for screening mammogram for malignant neoplasm of breast (principal)
CPT/HCPCS: 77063; 77067

== ENCOUNTER 2022-08-14 13:03 | Outpatient (REF) | payer MEDICAID, SELFPAY ==
--- NOTE | ~2022-08-14 | US_ITS ---
EXAMINATION: US DIAGNOSTIC ULTRASOUND BREAST, RIGHT CLINICAL INFORMATION: Breast nodule 10 o'clock position superior right breast. COMPARISON: Mammogram of 08/08/2022. TECHNIQUE: Ultrasound of the breast is performed with real-time marcano scale imaging and color Doppler. FINDINGS: Within the right breast 10 o'clock position approximately 9 cm from the nipple in the region of the mammographic finding. There is noted to be a normal-appearing lymph node measuring 7 x 4 x 6 mm in size with normal fatty hilum and no evidence of cortical thickening or lobulation. No other mass or region of abnormal distal sound shadowing in this location is identified. Results are discussed with the patient at time of visit. US/US breast RT limited IMPRESSION: Right breast density corresponds to a normal lymph node. ASSESSMENT: BI-RADS 2: Benign. RECOMMENDATION: Routine annual mammography screening due in 12 months. This patient's information was entered into a reminder system with a target due date for their next mammogram.
== END 2022-08-14 13:04 | disposition home or self-care (01) ==
LOC: HO.MAMMO 13:03
PROVIDERS: PCP Internal Medicine; Visit Provider Internal Medicine
DX: N63.11 Unspecified lump in the right breast, upper outer quadrant (principal)
CPT/HCPCS: 76642

== ENCOUNTER → 2022-10-06 14:26 | Outpatient (BNVA) | payer MEDICAID, SELFPAY | PROVIDERS: PCP Internal Medicine; Visit Provider Nurse Practitioner Family | DX: M47.26 Other spondylosis with radiculopathy, lumbar region (principal); M51.36 Other intervertebral disc degeneration, lumbar region; M53.3 Sacrococcygeal disorders, not elsewhere classified; M62.830 Muscle spasm of back; E11.40 Type 2 diabetes mellitus with diabetic neuropathy, unspecified | CPT/HCPCS: 99202 ==

== ENCOUNTER 2022-10-16 10:46 | Day surgery (SDC) | payer MEDICAID, SELFPAY ==
--- NOTE | ~2022-10-16 | FL_ITS ---
EXAMINATION: XR FLUOROSCOPY WITH IMAGES CLINICAL INFORMATION: SI joint pain. COMPARISON: None. TECHNIQUE: Fluoroscopy Supervised By: Dr. Yeyo Edmond. Fluoroscopy Time: 0.2 minute. Cumulative Dose: 5.68 mGy. DAP: 1.55 Gycm2. Images: 2. FINDINGS: There are 2 digital images revealing needle positioned overlying the SI joint with contrast opacifying the soft tissues. The SI joints spaces are maintained normal. No visible acute fracture or dislocation seen. The soft tissues are normal. FL/FL guidance in OR IMPRESSION: Fluoroscopy was provided to referring physician for SI joint pain management.
[2022-10-16 06:17] VITALS: BMI 31.7
[2022-10-16 10:51] VITALS: BP 149/97; PULSE 71; RESP 18; TEMP 36.8; O2SAT 97
[2022-10-16 11:04] LABS: Glucose, Whole Blood 116 mg/dL (60-115)
[2022-10-16 11:06] LABS: UPreg QC Valid YES; Urine Pregnancy NEGATIVE (NEGATIVE)
[2022-10-16] MEDS: Lactated Ringers 1,000 ML 50 ML IVCONT (11:13)
--- NOTE | 2022-10-16 11:49 | MHC.SHP ---
Pre-Procedural Eval Section A Date of Service: 10/16/22 The patient is an INPATIENT: No Changes since office visit: Yes Patient answered all questions The History & Physical has been completed within 30 days and I have reviewed it.: No Section B Chief Complaint: Sacrococcygeal disorders, not elsewhere classified Details of Present Illness: as above Relevant Family History (Specify if Yes): No Relevant Social History: None Present Medications: None Medical History: No relevant PMH History of Previous Operations: No relevant previous surgery Allergies: Allergies Allergy/AdvReac Type Severity Reaction Status Date / Time peanut Allergy Severe Swelling Verified 10/06/22 14:36 apple Allergy Intermediate Swelling Verified 10/06/22 14:36 pear Allergy Intermediate Unknown Verified 10/06/22 14:36 ibuprofen [IBUPROFEN] Allergy Unknown ABDOMINAL Verified 10/06/22 14:36 PAIN metformin [METFORMIN] Allergy Unknown ANAPHYLAXIS Verified 10/06/22 14:36 shrimp [SHRIMP] Allergy Unknown ANAPHYLAXIS Verified 10/06/22 14:36 theophylline [Theophylline] Allergy Unknown RASH Verified 10/06/22 14:36 carrot Allergy Unknown Verified 10/06/22 14:36 deng Allergy Unknown Verified 10/06/22 14:36 pecan nut Allergy Unknown Verified 10/06/22 14:36 walnut Allergy Unknown Verified 10/06/22 14:36 theodur Allergy Unknown vomiting Uncoded 11/12/21 12:54 Review of Systems Sugical H&P ROS: Negative: Cardiovascular, Respiratory, Neurological, Psychiatric, Hem-Onc, Allergic/Immunologic, Gastrointestinal, Genitourinary, Musculoskeletal, Integumentary, Endocrine and Eyes/Ears/Nose/Throat and Yes, Specify: Constitution (obesity) Exam Surgical H&P Exam: Normal: HEENT, Normal: Heart, Normal: Lungs, Normal: Extremities, Normal: Abdomen, Normal: Skin and Normal: Neurological Plan Diagnosis/Plan: Unchanged I have reviewed the history and physical and performed a pertinent physical examination on my patient. No changes have occurred unless specified. Time Spent With Patient Time: Total time managing care of this patient today ____ minutes.
--- NOTE | 2022-10-16 12:05 | P.OP_ITS ---
Operative Note Operative Note Date of Service: 10/16/22 Narrative: Bilateral therapeutic-sacroiliac joint injection Informed consent was explained thoroughly to the patient.? All questions about benefits and risks for the procedure were answered. Time out was performed delineating site and side of the procedure name and of the patient THe lower back and buttocks was prepped with ChloraPrep prepped and draped with sterile towels.?C-arm was brought over the operating field and sq picture of patient's pelvis was demonstrated on the screen.? For the right joint tilting C-arm contralateral to the site of the joint the most posterior portion of the joints were clearly delineated on the screen.? Skin was injected in the projection of the joint slightly medial to the location of the joint with 25 gauge 1/2 inch needle using local lidocaine 1% without epinephrine. ? After that 22 gauge 3 and 1/2 inch needle was driven to the point of interest in tunnel vision fashion.? When needle entered the joint capsule injection of the contrast was performed demonstrating intra-articular and minimally periarticular spread of the contrast.? After that 4 cc. of ropivacaine 0.5% with Kenalog 40 mg was injected into the joint.? After that the procedure was repeated on the left in the mirroring fashion. Upon completion of the injections the needles were removed.? Sterile dressing was applied. The patient tolerated procedure well she was taken outside of the o perating room to recovery room where she recovered uneventfully.
--- NOTE | 2022-10-16 12:23 | P.BOP_ITS ---
Brief Operative Note Date of Service: 10/16/22 Pre-op diagnosis: sacroiliitis Post-op diagnosis: same Procedure: bilateral therapeutic SI joint injrection Surgeon: Yeyo St MD Anesthesia: MAC Was an Brick And Tile Making Machine Operator used for this Procedure?: No Estimated blood loss (mL): 3 Pathology: none sent Condition: stable Disposition: PACU
[2022-10-16 12:30] VITALS: BP 128/87; PULSE 65; RESP 17; TEMP 36.7; O2SAT 100
[2022-10-16 12:45] VITALS: BP 119/85; PULSE 71; RESP 18; O2SAT 100
[2022-10-16 13:00] VITALS: BP 128/71; PULSE 72; RESP 18; TEMP 36.7; O2SAT 100
== END 2022-10-16 13:44 | disposition home or self-care (01) ==
PROVIDERS: Anesthesiology; PCP Internal Medicine; Visit Provider Anesthesiology
PROC: 3E0U33Z Introduction of Anti-inflammatory into Joints, Percutaneous Approach (ICD-10-PCS; CPT 27096; principal; 2022-10-16 12:50)
DX: M46.1 Sacroiliitis, not elsewhere classified (principal); M53.3 Sacrococcygeal disorders, not elsewhere classified; G89.29 Other chronic pain; M54.50 Low back pain, unspecified; M62.830 Muscle spasm of back; M47.816 Spondylosis without myelopathy or radiculopathy, lumbar region; M51.36 Other intervertebral disc degeneration, lumbar region; E11.40 Type 2 diabetes mellitus with diabetic neuropathy, unspecified; K21.9 Gastro-esophageal reflux disease without esophagitis; J45.909 Unspecified asthma, uncomplicated; Z79.85 Long-term (current) use of injectable non-insulin antidiabetic drugs; Z79.51 Long term (current) use of inhaled steroids; Z79.899 Other long term (current) drug therapy; Z88.8 Allergy status to other drugs, medicaments and biological substances; Z91.018 Allergy to other foods; Z91.010 Allergy to peanuts; Z86.16 Personal history of COVID-19; F17.210 Nicotine dependence, cigarettes, uncomplicated
CPT/HCPCS: 27096; 81025; 82947; J3301; Q9965

== ENCOUNTER 2022-11-03 10:00 | Outpatient (RCR) | payer MEDICAID, SELFPAY | END 2022-12-14 10:23 | disposition home or self-care (01) | LOC: HO.PT 10:00 | PROVIDERS: PCP Internal Medicine; Visit Provider Internal Medicine | DX: M54.16 Radiculopathy, lumbar region (principal) | CPT/HCPCS: 97110; 97162 ==

== ENCOUNTER 2023-05-11 16:03 | Emergency (ER) | payer MEDICAID, SELFPAY ==
[2023-05-11 16:33] VITALS: BP 161/93; PULSE 74; RESP 20; TEMP 36.7; O2SAT 100; BMI 32.6
--- NOTE | 2023-05-11 16:34 | ED_ITS ---
HPI - General Adult General Chief complaint: Skin/Abscess/Foreign Body Stated complaint: sent from [facility] / multiple symptoms Time Seen by Provider: 05/11/23 23:23 Source: patient, RN notes reviewed and old records reviewed Mode of arrival: ambulatory Limitations: no limitations History of Present Illness HPI narrative: 42-year-old female presents for evaluation of an abscess to her right groin patient reports that about 3 weeks ago she had an ingrown hair. she reports that she pulled out the air and did not think she had any issues about 3 days ago she noticed pain redness and swelling to her right groin in the area where she removed the hair she saw her PCP [facility] today and was referred to the ER for a large abscess that they could not drain and high blood pressure. Patient did not take her losartan today because she went from the primary office to the ER she denies any fevers but states that she does feel cold in the ER waiting room the patient is a diabetic Related Data Home Medications Medication Instructions Recorded Confirmed albuterol sulfate 200 mcg capsule 1 mcg inhalation DAILY 10/01/21 10/22/21 with inhalation device dulaglutide 0.75 mg/0.5 mL 0.75 mg subcut QWEEK 10/01/21 10/22/21 subcutaneous pen injector (Trulicity) fluticasone propionate 50 1 spray intranasal DAILY 10/01/21 10/22/21 mcg/actuation nasal spray,suspension (Flonase Allergy Relief) glipizide 5 mg tablet 5 mg PO DAILY 10/01/21 10/22/21 lancets 31 gauge (Comfort Touch 10/01/21 10/22/21 Ultra Thin Lancets) gabapentin 100 mg capsule 100 mg PO BEDTIME 10/06/22 10/06/22 lidocaine 5 % topical patch 1 patch topical DAILY 10/06/22 10/06/22 tizanidine 4 mg tablet 4 mg PO BID PRN 10/06/22 10/06/22 Previous Rx's Medication Instructions Recorded famotidine 40 mg tablet 40 mg PO BEDTIME #30 tabs 10/09/21 pantoprazole 40 mg tablet,delayed 40 mg PO DAILY #30 tabs 10/09/21 release sucralfate 100 mg/mL oral 10 ml PO BID #1,000 mL 11/19/21 suspension cephalexin 500 mg tablet 500 mg PO QID #28 tabs 05/12/23 doxycycline hyclate 100 mg tablet 100 mg PO BID #14 tabs 05/12/23 oxycodone 5 mg tablet 5 mg PO Q6H PRN severe pain (scale 05/12/23 score 7-10) #12 tabs Allergies Allergy/AdvReac Type Severity Reaction Status Date / Time peanut Allergy Severe Swelling Verified 10/06/22 14:36 apple Allergy Intermediate Swelling Verified 10/06/22 14:36 pear Allergy Intermediate Unknown Verified 10/06/22 14:36 ibuprofen [IBUPROFEN] Allergy Unknown ABDOMINAL Verified 10/06/22 14:36 PAIN metformin [METFORMIN] Allergy Unknown ANAPHYLAXIS Verified 10/06/22 14:36 shrimp [SHRIMP] Allergy Unknown ANAPHYLAXIS Verified 10/06/22 14:36 theophylline [Theophylline] Allergy Unknown RASH Verified 10/06/22 14:36 carrot Allergy Unknown Verified 10/06/22 14:36 deng Allergy Unknown Verified 10/06/22 14:36 pecan nut Allergy Unknown Verified 10/06/22 14:36 walnut Allergy Unknown Verified 10/06/22 14:36 theodur Allergy Unknown vomiting Uncoded 11/12/21 12:54 Review of Systems Constitutional: Constitutional: Reports chills and Denies fever(s) Cardiovascular: Cardiovascular: Denies chest pain and Denies dyspnea Respiratory: Respiratory: Denies cough and Denies dyspnea Gastrointestinal: Gastrointestinal: Denies abdominal pain, Denies nausea and Denies vomiting Genitourinary: Comments: large abscess to right groin PMFSH Past Medical History Medical History Anxiety Arthritis Asthma Back pain Depression Diabetes GERD (gastroesophageal reflux disease) Lumbar degenerative disc disease Smoker Family History Family History Maternal Grandmother Diabetes Blind Stomach cancer Paternal Grandmother Diabetes Blind Breast cancer Mother Diabetes Heart problem Father Heart problem Pre-diabetes Brother Prostate cancer Sister Lupus Sister Ovarian cancer Paternal Uncle Pancreatic cancer Social History Social History Patient Tobacco Use Status: Current everyday Tobacco user Tobacco use type: Cigarette Cigarette Packs Per Day: 0.5 Cigarettes Per Day: 5 Years Smoked: 20 Advance Directives: No Advance Directives Information Provided: No Current occupational status: employed 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 Physical Exam ED Vital Signs: Vital Signs - 24 hr 05/11/23 16:33 05/11/23 22:35 Temperature 98.1 F 98.8 F Pulse Rate 74 71 Respiratory Rate 20 20 Blood Pressure 161/93 H 231/102 H Pulse Oximetry 100 98 Oxygen Delivery Method Room Air Room Air BMI result Body Mass Index 32.6 Const General: healthy appearing, no acute distress, alert and awake Nutritional Appearance: well nourished Orientation/consciousness: patient oriented x3 HENMT Head: Yes normocephalic and Yes atraumatic Eyes Eyelids: Yes eyelids normal Conjunctivae: conjunctivae normal Sclerae: sclerae normal Corneas: corneas normal Pupils: Equal, round and reactive pupils present EOM: EOMs intact bilaterally Neck Neck: Yes full ROM Resp Effort & Inspection: normal respiratory effort, able to speak in complete sentences and not labored Cardio Rate: regular rate Rhythm: regular rhythm Other: patient has a very large approximately 5 x 4 cm area of fluctuance with some erythema and central skin breakdown to the right groin lateral to labia majora. no active drainage. the area is exquisitely tender to palpation Skin General skin exam: elasticity normal Neuro General: patient oriented x3 Cranial nerves: Yes Equal, round and reactive pupils present and Yes Bilaterally intact EOM present Cognition (Neuro): normal cognition Extrem Other: Moving all extremities well without any obvious deformities Course Course Course Narrative: This is a rapid medical exam: Additional HPI, ROS, PE not included below will be deferred to primary provider. Patient is a 42-year-old female with history of presenting to the emergency department with complaint of right groin pain and swelling. Reports she noted an ingrown hair approximately 3 weeks ago, thought she was able to remove the hair, then approximately 48 hours ago the area became increasingly inflamed, swollen, and painful. Saw PCP who referred patient here for I&D. Unsure of fevers, but reports sweats/chills. Area not visualized in triage due to privacy concerns. Plan: basic labs Medications Administered Discontinued Medications Generic Name Dose Route Start Last Admin Trade Name Freq PRN Reason Stop Dose Admin Lidocaine/Epinephrine 10 ml 05/11/23 23:53 05/12/23 00:33 Lidocaine Hcl 1%/Epi 1:100,000 10 Ml Vial INFILTRATI 05/11/23 23:54 10 ml ONCE ONE Administration Losartan Potassium 50 mg 05/11/23 22:53 05/11/23 23:12 Losartan Potassium 50 Mg Tablet PO 05/11/23 22:54 50 mg ONCE ONE Administration Protocol Morphine Sulfate 4 mg 05/11/23 23:53 05/12/23 00:19 Morphine Sulfate 4 Mg/Ml Cartridge IM 05/11/23 23:54 4 mg ONCE ONE Administration Protocol Ondansetron HCl 4 mg 05/11/23 23:53 05/12/23 00:19 Ondansetron Odt 4 Mg Tab.Rapdis TRANSLINGU 05/11/23 23:54 4 mg ONCE ONE Administration Procedures Abscess I/D Site: other ( right groin) Side (if applicable): right Local Anesthetic: lidocaine 1% and with epi Amount of anesthesia used (mL): 5 Technique: incised with blade Amount of fluid expressed (mL): 10 Sent for culture/gram staining?: No Irrigation: Yes Packing used?: iodoform Complications: pain Medical Decision Making Medical Decision Making [facility] Narrative: 42-year-old female presents for evaluation of large abscess to the right groin. See procedure note for incision and drainage. Her blood pressure was elevated as high as 231/102. She did not take her antihypertensive medications today and is significantly uncomfortable due to her pain. Will re-evaluate after she was given a dose of her home antihypertensive medication and analgesia. She is not tachycardic, not febrile, her white count is slightly elevated to 11, there is no evidence of sepsis. Differential Diagnosis Differential Diagnoses: The differential diagnosis associated with the presentation includes Cellulitis Abscess Bartholin's cyst Jamaal's cyst Lab Data [facility] Lab Attestation statement: I reviewed the patient's lab results. slight leukocytosis of 11.5 K, no anemia, normal platelet count. Patient's chloride is just above normal at 109, otherwise no electrolyte abnormalities. Renal function is stable. Patient is a known diabetic and her glucose is elevated slightly to 126 05/11/23 16:45 05/11/23 16:45 Labs: Lab Results 05/11/23 05/11/23 Range/Units 16:45 16:45 WBC 11.5 H (4.8-10.8) X10*3/uL RBC 4.63 (4.20-5.50) X10*6/uL Hgb 13.1 (12.0-16.0) g/dl Hct 39.4 (37.0-47.0) % MCV 85.1 (80.0-98.0) fL MCH 28.3 (27.0-33.0) pg MCHC 33.2 (31.0-35.0) g/dl RDW 14.9 (11.0-16.0) % Plt Count 222 (160-400) X10*3/uL MPV 10.5 (9.4-12.3) fL Immature Gran % (Auto) 0.3 (0.0-0.4) % Neut % (Auto) 77.7 H (45-73) % Lymph % (Auto) 15.8 L (20-40) % Emmet % (Auto) 5.6 (2-11) % Eos % (Auto) 0.3 (0-4) % Baso % (Auto) 0.3 (0-2) % Lymph # (Auto) 1.8 (1.2-4.9) X10*3/uL Emmet # (Auto) 0.7 (0.1-1.2) X10*3/uL Eos # (Auto) 0.0 (0.0-0.4) X10*3/uL Baso # (Auto) 0.0 (0.0-0.2) X10*3/uL Abs Immat Gran (auto) 0.04 H (0.00-0.03) X10*3/uL Absolute Neuts (auto) 8.9 H (2.0-8.3) x10*3/uL Absolute Nucleated RBC 0.000 (0.0-0.012) X10*3/uL Nucleated RBC % (auto) 0.0 (0.0-0.2) /100WBC Sodium 140 (135-145) mmol/L Potassium 3.6 (3.3-5.1) mmol/L Chloride 109 H (96-108) mmol/L Carbon Dioxide 23 (22-29) mmol/L Anion Gap 12 (12-20) BUN 10 (9-16) mg/dL Creatinine 0.76 (0.5-1.4) mg/dL Estim Creat Clear Calc 101.3 Estimated GFR > 60 Random Glucose 126 H (60-115) mg/dL Calcium 9.5 (8.4-10.2) mg/dL Tests considered The following testing was considered but not selected: CT scan of the pelvis to evaluate for degree of abscess Discharge Plan Discharge Clinical Impression: Abscess of groin, right Patient Disposition: Home, Self-Care Instructions: Abscess (ED) Additional Instructions: you had a large abscess drained from the right groin. Return in 48-72 hours for re-evaluation and gauze wick removal take both antibiotics as prescribed for the next 7 days return for new or worsening symptoms, especially a fever that does not improve use Tylenol as needed for pain. Use oxycodone for more severe or breakthrough pain. This may make you sleepy, did not drink alcohol or drive after taking Prescriptions: New oxycodone 5 mg tablet 5 mg PO Q6H PRN (Reason: severe pain (scale score 7-10)) Qty: 12 0RF Rx Instructions: Partial Fill upon patient request. cephalexin 500 mg tablet 500 mg PO QID Qty: 28 0RF doxycycline hyclate 100 mg tablet 100 mg PO BID Qty: 14 0RF No Action sucralfate 100 mg/mL suspension 10 ml PO BID Qty: 1000 0RF Trulicity 0.75 mg/0.5 mL pen injector 0.75 mg subcut QWEEK glipizide 5 mg tablet 5 mg PO DAILY (DME) Comfort Touch Ult Thin Lancets 31 gauge misc See Rx Instructions .ROUTE Rx Instructions: As directed fluticasone propionate [Flonase Allergy Relief] 50 mcg/actuation spray,suspension 1 spray intranasal DAILY Rx Instructions: administer into each nostril albuterol sulfate 200 mcg capsule, w/inhalation device 1 mcg inhalation DAILY pantoprazole 40 mg tablet,delayed release (DR/EC) 40 mg PO DAILY Qty: 30 5RF Rx Instructions: take one tablet half an hour before breakfast famotidine 40 mg tablet 40 mg PO BEDTIME Qty: 30 4RF lidocaine 5 % adhesive patch,medicated 1 patch topical DAILY Rx Instructions: leave on most painful area for up to 12 hrs gabapentin 100 mg capsule 100 mg PO BEDTIME tizanidine 4 mg tablet 4 mg PO BID PRN
[2023-05-11 16:48] LABS: MANUAL DIFF FLAG NO
[2023-05-11 16:58] LABS: Basophils Percent Auto 0.3 % (0-2); Eosinophils Percent Auto 0.3 % (0-4); Hematocrit 39.4 % (37.0-47.0); Hemoglobin 13.1 g/dl (12.0-16.0); Imm Gran Abs Auto 0.04 X10*3/uL (0.00-0.03); Imm Gran Pct Auto 0.3 % (0.0-0.4); Lymphocytes Absolute Auto 1.8 X10*3/uL (1.2-4.9); Lymphocytes Percent Auto 15.8 % (20-40); Mean Corpuscular HGB Conc 33.2 g/dl (31.0-35.0); Mean Corpuscular Hemoglobin 28.3 pg (27.0-33.0); Mean Corpuscular Volume 85.1 fL (80.0-98.0); Mean Platelet Volume 10.5 fL (9.4-12.3); Monocytes Absolute Auto 0.7 X10*3/uL (0.1-1.2); Monocytes Percent Auto 5.6 % (2-11); Neutrophils Absolute Auto 8.9 x10*3/uL (2.0-8.3); Neutrophils Percent Auto 77.7 % (45-73); Platelet Count 222 X10*3/uL (160-400); Red Blood Count 4.63 X10*6/uL (4.20-5.50); Red Cell Distribution Width 14.9 % (11.0-16.0); White Blood Count 11.5 X10*3/uL (4.8-10.8)
[2023-05-11 17:02] LABS: Anion Gap 12 (12-20); Blood Urea Nitrogen 10 mg/dL (9-16); Calcium 9.5 mg/dL (8.4-10.2); Carbon Dioxide 23 mmol/L (22-29); Chloride 109 mmol/L (96-108); Creatinine Clr Calc Pharmacy 101.3; Estimated Glomerular Filt Rate > 60; Glucose Random 126 mg/dL (60-115); Potassium 3.6 mmol/L (3.3-5.1); Sodium 140 mmol/L (135-145)
[2023-05-11 22:35] VITALS: BP 231/102; PULSE 71; RESP 20; TEMP 37.1; O2SAT 98
--- NOTE | 2023-05-11 22:46 | PC.NURSE ---
MD Bernal aware of high blood pressure. patient reporting extreme pain to groin area. MD Bernal aware .
[2023-05-11] MEDS: Losartan Potassium 50 MG TABLET PO (23:12)
--- NOTE | 2023-05-11 23:15 | PC.NURSE ---
pt medicated per mar with home blood pressure medication
[2023-05-12] MEDS: Ondansetron ODT 4 MG TAB.RAPDIS TRANSLINGU (00:19)
[2023-05-12] MEDS: Morphine Sulfate 4 MG/ML CARTRIDGE IM (00:19)
[2023-05-12] MEDS: Lidocaine HCl 1%/Epi 1:100,000 10 ML VIAL INFILTRATI (00:33)
[2023-05-12] MEDS: cephALEXin 500 MG CAPSULE PO (01:13)
[2023-05-12] MEDS: Doxycycline Monohydrate 100 MG CAPSULE PO (01:13)
[2023-05-12 01:25] VITALS: BP 183/97
== END 2023-05-12 01:25 | disposition home or self-care (01) ==
PROVIDERS: Registered Nurse Emergency; Emergency Provider Emergency Medicine; PCP General Practice
DX: L02.214 Cutaneous abscess of groin (principal); Z79.899 Other long term (current) drug therapy
CPT/HCPCS: 10060; 36415; 80048; 85025; 96372; 99283; 99284; J2270

== ENCOUNTER 2023-09-23 21:53 | Emergency (ER) | payer OTHER, MEDICAID, SELFPAY ==
[2023-09-23 21:59] VITALS: BP 187/99; PULSE 76; RESP 18; TEMP 36.4; O2SAT 99; BMI 34.1
[2023-09-23 22:54] VITALS: BP 169/98; PULSE 74; RESP 16; TEMP 36.6; O2SAT 99
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
[2023-09-23] MEDS: Acetaminophen 325 MG TABLET 975 MG PO (23:55)
[2023-09-23] MEDS: Lidocaine 4 % Patch ADH..PATCH 1 PATCH TRANSDERMA (23:56)
[2023-09-23] MEDS: Cyclobenzaprine HCl 5 MG TABLET PO (23:56)
== END 2023-09-24 00:31 | disposition home or self-care (01) ==
PROVIDERS: Emergency Provider Student in an Organized Health Care Education/Training Program; PCP General Practice
DX: Z04.1 Encounter for examination and observation following transport accident (principal); M62.830 Muscle spasm of back; M79.18 Myalgia, other site; F17.210 Nicotine dependence, cigarettes, uncomplicated
CPT/HCPCS: 99283

== ENCOUNTER 2023-10-28 17:03 | Outpatient (REF) | payer MEDICAID, SELFPAY ==
--- NOTE | ~2023-10-28 | MR_ITS ---
EXAMINATION: MR LUMBAR SPINE WITHOUT CONTRAST CLINICAL INFORMATION: Worsening lumbar back pain with numbness in bilateral lower extremities. COMPARISON: CT scan of the abdomen and pelvis 09/17/2021. MRI scan of the lumbar spine 07/31/2020. TECHNIQUE: MRI of the lumbar spine was obtained using routine sequences without contrast. FINDINGS: VERTEBRAL BODIES AND PARASPINAL STRUCTURES: There is anatomic alignment of the vertebral bodies. There is narrowing of intervertebral disc height loss of signal from the disc at the level of L5-S1. This appears worse compared to the prior MRI scan. There is milder narrowing and loss of signal from the disc at L4-L5. Vertebral body heights are maintained and no fractures are demonstrated. There are mild edematous signal changes around the left L5-S1 facet joint. Overall, marrow signal is homogenous. There is a 1.5 cm right renal cyst which does not need further imaging evaluation. The uterus is bulky and anteverted with an endometrial stripe measuring 1.1 cm. The urinary bladder is moderately distended. CONUS MEDULLARIS AND CAUDA EQUINA: Normal, terminating at the level of L1. The lower thoracic spinal cord appears normal. The cauda equina nerve roots and filum terminale appear normal. SPINAL LEVELS: L1-L2: The facet joints appear normal bilaterally. Posterior disc contour is normal and there is no central stenosis. The neural foramina are patent bilaterally. L2-L3: The facet joints appear normal bilaterally. Disc contour is normal. There is no central stenosis or foraminal narrowing. L3-L4: There is mild bilateral facet arthropathy. There is a mild diffuse disc bulge but there is no central stenosis. The neural foramina are patent bilaterally. L4-L5: There is severe bilateral facet arthropathic changes with ligamenta flava hypertrophy. There is a broad-based posterior disc protrusion which flattens the ventral thecal sac, and in concert with the facet arthropathic changes, there is narrowing of the right greater than left subarticular recesses, worse compared to the prior study. There is moderate central stenosis. There are bilateral foraminal disc protrusions inferiorly, and there is impingement on the exiting right L4 nerve root. L5-S1: There is moderate bilateral facet arthropathy. There is an eccentric disc protrusion toward the right which flattens the ventral thecal sac and narrows the left subarticular recess with impingement traversing left S1 nerve root. There is no central stenosis. There is a large foraminal disc protrusion on the left with mass effect on the exiting left L5 nerve root. There is a small protrusion in the right neural foramen without exiting nerve root impingement. MR/MR lumbar spine wo con IMPRESSION: 1. At L5-S1 there is moderate facet arthropathy. There is an eccentric disc protrusion toward the right which narrows the left subarticular recess with impingement on the traversing left S1 nerve root. There is a large foraminal disc protrusion on the left with mass effect on the exiting left L5 nerve root. There is no central stenosis. 2. At L4-L5 there is severe facet arthropathy and there is a broad-based posterior disc protrusion. There is narrowing of the right greater than left subarticular recesses, worse compared to the prior study. There is moderate central stenosis. There is impingement on the exiting right L4 nerve root. 3. Milder spondylitic and facet arthropathic changes are demonstrated at other levels as described above.
== END 2023-10-28 17:04 | disposition home or self-care (01) ==
LOC: HO.MRI 17:03
PROVIDERS: PCP General Practice; Visit Provider Student in an Organized Health Care Education/Training Program
DX: M54.16 Radiculopathy, lumbar region (principal)
CPT/HCPCS: 72148

== ENCOUNTER 2023-11-12 15:52 | Outpatient (REF) | payer MEDICAID, SELFPAY ==
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
== END 2023-11-12 15:53 | disposition home or self-care (01) ==
LOC: HO.XRAY 15:52
PROVIDERS: PCP General Practice; Visit Provider Nurse Practitioner Primary Care
DX: M54.2 Cervicalgia (principal)
CPT/HCPCS: 72040

== ENCOUNTER 2023-11-23 09:12 | Emergency (ER) | payer MEDICAID, SELFPAY ==
--- NOTE | ~2023-11-23 | CT_ITS ---
EXAMINATION: CT ABDOMEN AND PELVIS WITH CONTRAST CLINICAL INFORMATION: Abdominal pain. COMPARISON: 09/17/2021. TECHNIQUE: Multidetector volumetric images were obtained from the superior aspect of the liver through the pubic symphysis following administration 85 mL of Omnipaque 350 intravenous contrast. Sagittal and coronal reformatted images were obtained on the technologist's workstation. Oral contrast: No This CT examination was performed using dose optimization techniques as appropriate, variously including the following: *Automated exposure control *Adjustment of mA and/or kV according to patient size (this includes techniques or standardized protocols for targeted exams where dose is matched to indication/reason for exam; i.e. extremities or head) *Use of iterative reconstruction technique DLP: 527 mGy-cm FINDINGS: LUNG BASES: No pulmonary consolidation or pleural effusion. The bronchial marlow are thickened in the visualized lung bases have mosaic attenuation which suggests air trapping phenomenon. HEPATOBILIARY: No acute observations. The liver has normal size, shape, and attenuation. Gallbladder is surgically absent. Common bile duct is chronically mildly dilated; it measures up to 0.9 cm diameter. PANCREAS: No edema, pancreatic ductal dilatation or mass. SPLEEN: Normal. ADRENAL GLANDS: Normal. KIDNEYS AND URETERS: The kidneys enhance symmetrically and have normal size and cortical thickness. No perinephric fluid collection, urolithiasis or hydroureteronephrosis. 1.6 cm simple cyst of the mid right kidney. No renal imaging follow-up recommended. BLADDER: Normal. No calculi or wall thickening. BOWEL AND PERITONEUM: Stomach is unremarkable. No dilated loops of bowel. The appendix is not definitively seen; however, no inflammatory changes in the right lower quadrant. No overt bowel wall thickening or mesenteric fat stranding. No free fluid or pneumoperitoneum. ABDOMINAL WALL: Unremarkable. VASCULATURE: Unremarkable. LYMPH NODES: No pathologic sized lymph nodes in the abdomen or pelvis. No inguinal lymphadenopathy. PELVIC VISCERA: The anteflexed, anteverted uterus is normal. There appear to be normal size follicles of the ovaries. No pelvic fluid collection. MUSCULOSKELETAL: Ffdqdxwl-da-jpvakm facet arthropathy at L4-L5. At L5-S1, there is degenerative loss of disc height, disc bulge, vacuum disc phenomenon and superimposed left posterolateral disc protrusion which encroaches on the left subarticular recess, likely contacts traversing left S1 nerve root, and there is severe left-sided neural foraminal stenosis at L5-S1. Mild osteoarthritis of the hips. No acute or suspicious osseous abnormality. CT/CT abdomen pelvis w IV con IMPRESSION: No acute imaging abnormalities. No specific source of abdominal pain is identified.
[2023-11-23 09:35] VITALS: BP 129/83; PULSE 90; RESP 16; TEMP 36.9; O2SAT 100; BMI 33.2
[2023-11-23 10:01] LABS: Basophils Percent Auto 0.2 % (0-2); Hematocrit 36.9 % (37.0-47.0); Hemoglobin 12.5 g/dl (12.0-16.0); Imm Gran Abs Auto 0.03 X10*3/uL (0.00-0.03); Imm Gran Pct Auto 0.3 % (0.0-0.4); Lymphocytes Absolute Auto 0.7 X10*3/uL (1.2-4.9); Lymphocytes Percent Auto 7.6 % (20-40); MANUAL DIFF FLAG SCAN; Mean Corpuscular HGB Conc 33.9 g/dl (31.0-35.0); Mean Corpuscular Volume 82.7 fL (80.0-98.0); Mean Platelet Volume 10.4 fL (9.4-12.3); Monocytes Absolute Auto 0.1 X10*3/uL (0.1-1.2); Monocytes Percent Auto 1.4 % (2-11); Neutrophils Absolute Auto 8.3 x10*3/uL (2.0-8.3); Neutrophils Percent Auto 90.5 % (45-73); Platelet Count 266 X10*3/uL (160-400); Red Blood Count 4.46 X10*6/uL (4.20-5.50); Red Cell Distribution Width 13.4 % (11.0-16.0); SCAN SMEAR FLAG 1; White Blood Count 9.2 X10*3/uL (4.8-10.8)
[2023-11-23 10:06] LABS: Anion Gap 11 (12-20); Blood Urea Nitrogen 8 mg/dL (9-16); Calcium 9.4 mg/dL (8.4-10.2); Carbon Dioxide 22 mmol/L (22-29); Chloride 108 mmol/L (96-108); Creatinine Clr Calc Pharmacy 87.4; Estimated Glomerular Filt Rate > 60; Glucose Random 249 mg/dL (60-115); Potassium 3.4 mmol/L (3.3-5.1); Sodium 138 mmol/L (135-145)
[2023-11-23 10:08] LABS: COVID-19 Test Negative (Negative); IDNOW Serial# 08D9AD1C
[2023-11-23 10:12] LABS: IDNOW Serial# 152EDE1D; Influenza A Negative (Negative); Influenza B2 Negative (Negative)
[2023-11-23 10:52] LABS: SLIDE REVIEW VERIFIED
--- NOTE | 2023-11-23 11:34 | ED.GENADULT ---
HPI - General Adult General Chief complaint: Abdominal Pain Stated complaint: Vomiting Time Seen by Provider: 11/23/23 11:33 Source: patient Mode of arrival: ambulatory Limitations: no limitations History of Present Illness HPI narrative: Patient is a 43 year old assigned female at with a history of DM presenting to the emergency department today with abdominal pain, nausea, and vomiting. Patient states that over the last 2 days she has had lower abdominal pain with nausea and vomiting. Patient denies any dizziness, lightheadedness, fever, chills, blurry vision, double vision, loss of vision, chest pain, difficulty breathing, shortness of breath, back pain, night sweats, pain with urination, increased urinary frequency, increased urinary urgency, blood in her urine or stool, syncope or a near syncopal episode, recent trauma or falls, bowel incontinence, bladder incontinence, bowel retention, bladder retention, or any other complaints at this time. MD complaint: Abdominal pain Onset (ago): day(s) (2-3) Location: abdomen (RLQ) Radiation: flank (R flank) Severity: mild Severity scale (1-10): 3 Quality: aching and constant Pain Consistency: constant Relieving factors: none Exacerbating factors: none Associated symptoms: nausea/vomiting Treatments prior to arrival: none Related Data Home Medications Medication Instructions Recorded Confirmed albuterol sulfate 200 mcg capsule 1 mcg inhalation DAILY 10/01/21 10/22/21 with inhalation device dulaglutide 0.75 mg/0.5 mL 0.75 mg subcut QWEEK 10/01/21 10/22/21 subcutaneous pen injector (Trulicity) fluticasone propionate 50 1 spray intranasal DAILY 10/01/21 10/22/21 mcg/actuation nasal spray,suspension (Flonase Allergy Relief) glipizide 5 mg tablet 5 mg PO DAILY 10/01/21 10/22/21 lancets 31 gauge (Comfort Touch 10/01/21 10/22/21 Ultra Thin Lancets) gabapentin 100 mg capsule 100 mg PO BEDTIME 10/06/22 10/06/22 lidocaine 5 % topical patch 1 patch topical DAILY 10/06/22 10/06/22 tizanidine 4 mg tablet 4 mg PO BID PRN 10/06/22 10/06/22 Previous Rx's Medication Instructions Recorded famotidine 40 mg tablet 40 mg PO BEDTIME #30 tabs 10/09/21 pantoprazole 40 mg tablet,delayed 40 mg PO DAILY #30 tabs 10/09/21 release sucralfate 100 mg/mL oral 10 ml PO BID #1,000 mL 11/19/21 suspension cephalexin 500 mg tablet 500 mg PO QID #28 tabs 05/12/23 doxycycline hyclate 100 mg tablet 100 mg PO BID #14 tabs 05/12/23 oxycodone 5 mg tablet 5 mg PO Q6H PRN severe pain (scale 05/12/23 score 7-10) #12 tabs cyclobenzaprine 5 mg tablet 5 mg PO BEDTIME PRN muscle spasm 09/24/23 #4 tabs cefuroxime axetil 250 mg tablet 250 mg PO BID 7 days #14 tabs 11/23/23 Allergies Allergy/AdvReac Type Severity Reaction Status Date / Time peanut Allergy Severe Swelling Verified 09/23/23 22:05 apple Allergy Intermediate Swelling Verified 09/23/23 22:05 pear Allergy Intermediate Unknown Verified 09/23/23 22:05 ibuprofen [IBUPROFEN] Allergy Unknown ABDOMINAL Verified 09/23/23 22:05 PAIN metformin [METFORMIN] Allergy Unknown ANAPHYLAXIS Verified 09/23/23 22:05 shrimp [SHRIMP] Allergy Unknown ANAPHYLAXIS Verified 09/23/23 22:05 theophylline [Theophylline] Allergy Unknown RASH Verified 09/23/23 22:05 carrot Allergy Unknown Verified 09/23/23 22:05 deng Allergy Unknown Verified 09/23/23 22:05 pecan nut Allergy Unknown Verified 09/23/23 22:05 walnut Allergy Unknown Verified 09/23/23 22:05 theodur Allergy Unknown vomiting Uncoded 11/12/21 12:54 Review of Systems Constitutional: Constitutional: Reports no additional constitutional complaints, Denies chills, Denies fever(s) and Denies night sweats Eyes: Eyes: Reports no additional eye complaints, Denies blurry vision, Denies change in vision, Denies diplopia, Denies eye discharge, Denies loss of vision and Denies eye pain ENT: Denies dizziness Cardiovascular: Cardiovascular: Reports no additional cardiovascular complaints, Denies chest pain, Denies lightheadedness, Denies Loss of Consciousness and Denies dyspnea Respiratory: Respiratory: Reports no additional respiratory complaints and Denies dyspnea Gastrointestinal: Gastrointestinal: Reports no additional gastrointestinal complaints, Reports abdominal pain, Denies melena, Denies hematochezia, Denies change in bowel habits, Denies change in stool character, Reports nausea and Reports vomiting Genitourinary: Genitourinary: Denies hematuria, Denies urinary frequency, Denies dysuria, Denies urinary incontinence, Denies urinary hesitancy and Denies urinary urgency Musculoskeletal: Musculoskeletal: Reports no additional musculoskeletal complaints, Denies numbness and Denies tingling Neurologic: Denies dizziness, Denies loss of vision, Denies numbness and Denies tingling Psychiatric: Psychiatric: Reports no additional psychiatric complaints Endocrine: Endocrine: Reports no additional endocrine complaints Hematologic/Lymphatic: Hematologic/Lymphatic: Reports no additional hematologic/lymphatic complaints Allergic/Immunologic: Allergic/Immunologic: Reports no additional allergic/immunologic complaints [facility] Past Medical History Attestation statement: The following information was validated with the patient. Source: old records reviewed and nursing notes reviewed Medical History Lumbar degenerative disc disease Arthritis Back pain GERD (gastroesophageal reflux disease) Anxiety Depression Smoker Diabetes Asthma Family History Family History Maternal Grandmother Diabetes Blind Stomach cancer Paternal Grandmother Diabetes Blind Breast cancer Mother Diabetes Heart problem Father Heart problem Pre-diabetes Brother Prostate cancer Sister Lupus Sister Ovarian cancer Paternal Uncle Pancreatic cancer Social History Social History Patient Tobacco Use Status: Current everyday Tobacco user Tobacco use type: Cigarette Cigarette Packs Per Day: 0.5 Cigarettes Per Day: 5 Years Smoked: 20 Smoked in Last 30 Days: Yes Use of substances other than those prescribed or required for medical reasons: No Advance Directives: No Advance Directives Information Provided: Yes Patient : No Current occupational status: employed 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 Physical Exam ED Vital Signs: Vital Signs - 24 hr 11/23/23 09:35 11/23/23 12:12 11/23/23 14:36 Temperature 98.5 F 98.7 F Pulse Rate 90 73 76 Respiratory Rate 16 16 17 Blood Pressure 129/83 136/73 135/78 Pulse Oximetry 100 96 98 Oxygen Delivery Method Room Air Room Air Room Air BMI result Body Mass Index 33.2 Const General: cooperative, alert, awake and in distress Nutritional Appearance: obese Orientation/consciousness: oriented to person Limitations: no limitations HENMT Head: Yes normal to inspection Ears: hearing grossly normal bilaterally General nose exam: Normal external nose present Face and sinus: Yes normal facial exam Mouth: Normal oral and palatal mucosa present, no drooling and no muffled voice Eyes General: appearance normal, both eyes and all related structures Periorbital: periorbital findings normal Eyelids: Yes eyelids normal Conjunctivae: conjunctivae normal Pupils: Equal, round and reactive pupils present EOM: EOMs intact bilaterally Neck Neck: Yes normal visual inspection Chest Chest palpation & inspection: normal inspection of the chest Resp Effort & Inspection: normal respiratory effort and able to speak in complete sentences Auscultation: clear to auscultation bilaterally Cardio Jugular venous distension: no JVD Palpation: normal PMI Rate: regular rate Rhythm: regular rhythm GI Inspection: Yes normal to inspection Palpation (GI): Soft to palpation, not firm, nontender, no guarding and not rigid Auscultation: normal bowel sounds Neuro General: oriented to person Cranial nerves: Yes Equal, round and reactive pupils present Cognition (Neuro): normal cognition Motor exam (neuro): 5/5 motor strength present throughout Sensory Exam: Normal double simultaneous stimulation for sensation Coordination: [id number] test normal Extrem General: Yes normal to inspection, Yes full ROM and Yes capillary refill normal Psych Appearance: grossly normal Mental Status: mental status grossly normal Affect: normal affect Attitude: cooperative Thought process: Normal thought process present Thought content: Normal thought content present Insight: Good insight present (Psych) Medications Administered Discontinued Medications Generic Name Dose Route Start Last Admin Trade Name Freq PRN Reason Stop Dose Admin Sodium Chloride 1,000 mls @ 999 mls/hr 11/23/23 11:45 11/23/23 13:11 Ns IV 11/23/23 12:45 Infused .Q1H1M PONCHO Infusion Iohexol 85 ml 11/23/23 13:22 11/23/23 13:23 Iohexol 350 Mg/Ml 100 Ml Infus..Btl IV 11/23/23 13:23 85 ml ONCE ONE Administration Morphine Sulfate 4 mg 11/23/23 11:43 11/23/23 11:52 Morphine Sulfate 4 Mg/Ml Cartridge IVPUSH 11/23/23 11:44 4 mg ONCE ONE Administration Protocol Ondansetron HCl 4 mg 11/23/23 11:43 11/23/23 11:53 Ondansetron Hcl 4 Mg/2 Ml Vial IVPUSH 11/23/23 11:44 4 mg ONCE ONE Administration Medical Decision Making Medical Decision Making [facility] Narrative: Patient is a 43 year old assigned female at with a history of DM presenting to the emergency department today with abdominal pain, nausea, and vomiting. Patient's physical exam was unremarkable. Patient's blood work showed a very mildly elevated lipase of 87 but were otherwise unremarkable. Patient's urine showed a possible infection vs. passed stone with moderate blood, hyaline casts, and trace bacteria. Patient's abdomen/pelvis CT showed no acute process. I explained my physical exam findings as well as all test results to the patient. I answered all questions asked by the patient. I stressed the importance of the patient taking her medication as prescribed. I stressed the importance of the patient following up with her primary care provider. I stressed the importance of the patient returning to the emergency department immediately if her symptoms were to worsen or if she were to develop any dizziness, shortness of breath, difficulty breathing, chest pain, blurry vision, loss of vision, nausea, vomiting, abdominal pain, fever, chills, back pain, or any other complaints. Patient verbalized agreement and understanding with this treatment plan and discharge. Differential Diagnosis Differential Diagnoses: The differential diagnosis associated with the presentation includes Abdominal pain Passed kidney stone Renal stone UTI Pancreatitis Admission/Observation Consideration of admission/observation: Escalation of care including admission/observation considered Patient would have been admitted to the hospital had her work up had any findings where hospital admission was appropriate and her clinical presentation warranted hospital admission. Lab Data [facility] Lab Attestation statement: I reviewed the patient's lab results. My interpretation of these results are in the [facility] Rationale portion of this note. 11/23/23 09:49 11/23/23 09:49 Labs: Lab Results 11/23/23 11/23/23 Range/Units 09:49 12:37 WBC 9.2 (4.8-10.8) X10*3/uL RBC 4.46 (4.20-5.50) X10*6/uL Hgb 12.5 (12.0-16.0) g/dl Hct 36.9 L (37.0-47.0) % MCV 82.7 (80.0-98.0) fL MCH 28.0 (27.0-33.0) pg MCHC 33.9 (31.0-35.0) g/dl RDW 13.4 (11.0-16.0) % Plt Count 266 (160-400) X10*3/uL MPV 10.4 (9.4-12.3) fL Immature Gran % (Auto) 0.3 (0.0-0.4) % Neut % (Auto) 90.5 H (45-73) % Lymph % (Auto) 7.6 L (20-40) % Luna % (Auto) 1.4 L (2-11) % Eos % (Auto) 0.0 (0-4) % Baso % (Auto) 0.2 (0-2) % Lymph # (Auto) 0.7 L (1.2-4.9) X10*3/uL Luna # (Auto) 0.1 (0.1-1.2) X10*3/uL Eos # (Auto) 0.0 (0.0-0.4) X10*3/uL Baso # (Auto) 0.0 (0.0-0.2) X10*3/uL Abs Immat Gran (auto) 0.03 (0.00-0.03) X10*3/uL Absolute Neuts (auto) 8.3 (2.0-8.3) x10*3/uL Absolute Nucleated RBC 0.000 (0.0-0.012) X10*3/uL Nucleated RBC % (auto) 0.0 (0.0-0.2) /100WBC Smear Tech's Comments VERIFIED Sodium 138 (135-145) mmol/L Potassium 3.4 (3.3-5.1) mmol/L Chloride 108 (96-108) mmol/L Carbon Dioxide 22 (22-29) mmol/L Anion Gap 11 L (12-20) BUN 8 L (9-16) mg/dL Creatinine 0.88 (0.5-1.4) mg/dL Estim Creat Clear Calc 87.4 Estimated GFR > 60 Random Glucose 249 H (60-115) mg/dL Calcium 9.4 (8.4-10.2) mg/dL Total Bilirubin 0.3 (0.0-1.0) mg/dL Direct Bilirubin 0.1 (0.0-0.5) mg/dL AST 13 (5-31) U/L ALT 14 (0-31) U/L Alkaline Phosphatase 58 (39-117) U/L Total Protein 7.9 (6.5-8.0) g/dL Albumin 4.1 (3.5-5.0) g/dL Lipase 87 H (8-78) U/L Beta HCG, Quant < 2 mIU/mL Urine Color Dark Yellow Urine Appearance Cloudy Urine pH 6.0 (5.0-9.0) Ur Specific [place] >= 1.030 H (1.005-1.025) Urine Protein 30 (1+) H (Neg-Trace) mg/dL Urine Glucose (UA) 500 H (Negative) mg/dL Urine Ketones 15 (Negative) mg/dL Urine Blood Moderate (2+) H (Negative) Urine Nitrite Negative (Negative) Ur Leukocyte Esterase Negative (Negative) Urine RBC >20 H (0-2) /HPF Urine WBC 0-5 (0-5) /HPF Ur Squamous Epith Cells 11-20 (0-2) /HPF Urine Bacteria Trace (None Seen) Hyaline Casts 3-5 (0-2) /LPF Urine Test NEGATIVE (NEGATIVE) COVID-19 ([facility]) Negative (Negative) COVID-19 Clin Com See Note Influenza Type A ([facility]) Negative (Negative) Influenza Type B ([facility]TEZA) Negative (Negative) Influenza A & B Note See Note Independent Interpretation I performed an independent interpretation of an: CT Scan Interpretation: My interpretation is in agreement with the radiologist's impression of this imaging study. EXAMINATION: CT ABDOMEN AND PELVIS WITH CONTRAST CLINICAL INFORMATION: Abdominal pain. COMPARISON: 09/17/2021. TECHNIQUE: Multidetector volumetric images were obtained from the superior aspect of the liver through the pubic symphysis following administration 85 mL of Omnipaque 350 intravenous contrast. Sagittal and coronal reformatted images were obtained on the technologist's workstation. Oral contrast: No This CT examination was performed using dose optimization techniques as appropriate, variously including the following: *Automated exposure control *Adjustment of mA and/or kV according to patient size (this includes techniques or standardized protocols for targeted exams where dose is matched to indication/reason for exam; i.e. extremities or head) *Use of iterative reconstruction technique DLP: 527 mGy-cm FINDINGS: LUNG BASES: No pulmonary consolidation or pleural effusion. The bronchial marlow are thickened in the visualized lung bases have mosaic attenuation which suggests air trapping phenomenon. HEPATOBILIARY: No acute observations. The liver has normal size, shape, and attenuation. Gallbladder is surgically absent. Common bile duct is chronically mildly dilated; it measures up to 0.9 cm diameter. PANCREAS: No edema, pancreatic ductal dilatation or mass. SPLEEN: Normal. ADRENAL GLANDS: Normal. KIDNEYS AND URETERS: The kidneys enhance symmetrically and have normal size and cortical thickness. No perinephric fluid collection, urolithiasis or hydroureteronephrosis. 1.6 cm simple cyst of the mid right kidney. No renal imaging follow-up recommended. BLADDER: Normal. No calculi or wall thickening. BOWEL AND PERITONEUM: Stomach is unremarkable. No dilated loops of bowel. The appendix is not definitively seen; however, no inflammatory changes in the right lower quadrant. No overt bowel wall thickening or mesenteric fat stranding. No free fluid or pneumoperitoneum. ABDOMINAL WALL: Unremarkable. VASCULATURE: Unremarkable. LYMPH NODES: No pathologic sized lymph nodes in the abdomen or pelvis. No inguinal lymphadenopathy. PELVIC VISCERA: The anteflexed, anteverted uterus is normal. There appear to be normal size follicles of the ovaries. No pelvic fluid collection. MUSCULOSKELETAL: Ochutwrj-dd-hvwmne facet arthropathy at L4-L5. At L5-S1, there is degenerative loss of disc height, disc bulge, vacuum disc phenomenon and superimposed left posterolateral disc protrusion which encroaches on the left subarticular recess, likely contacts traversing left S1 nerve root, and there is severe left-sided neural foraminal stenosis at L5-S1. Mild osteoarthritis of the hips. No acute or suspicious osseous abnormality. CT/CT abdomen pelvis w IV con IMPRESSION: No acute imaging abnormalities. No specific source of abdominal pain is identified. Dictated By: Jacob Lau MD Signed By: Electronically signed by Jacob Lau MD 11/23/23 8030 Radiology Impression Discussion of test interpretation with radiology: I have reviewed the radiologist's reading. Prescription Management I considered prescription management with: Antibiotic (patient prescribed an antibiotic for possible UTI) Chronic Conditions Patient?s care impacted by: Diabetes Critical Care Time Critical Care Time Critical Care Time: Yes Total Critical Care Time: 55 Attestation: I spent 55 minutes of Critical Care Time with this patient. This does not include time spent on separately reported billable procedures. Discharge Plan Discharge Clinical Impression: UTI (urinary tract infection), Abdominal pain Patient Disposition: Home, Self-Care Instructions: Urinary Tract Infection in Women (DC), Abdominal Pain (ED) Additional Instructions: Follow up with your primary care provider. Return to the emergency department immediately if your symptoms worsen or if you develop any dizziness, shortness of breath, difficulty breathing, chest pain, blurry vision, loss of vision, nausea, vomiting, abdominal pain, fever, chills, back pain, or any other complaints. Prescriptions: New cefuroxime axetil 250 mg tablet 250 mg PO BID 7 Days Qty: 14 0RF No Action sucralfate 100 mg/mL suspension 10 ml PO BID Qty: 1000 0RF oxycodone 5 mg tablet 5 mg PO Q6H PRN (Reason: severe pain (scale score 7-10)) Qty: 12 0RF Rx Instructions: Partial Fill upon patient request. cephalexin 500 mg tablet 500 mg PO QID Qty: 28 0RF doxycycline hyclate 100 mg tablet 100 mg PO BID Qty: 14 0RF cyclobenzaprine 5 mg tablet 5 mg PO BEDTIME PRN (Reason: muscle spasm) Qty: 4 0RF Trulicity 0.75 mg/0.5 mL pen injector 0.75 mg subcut QWEEK glipizide 5 mg tablet 5 mg PO DAILY (DME) Comfort Touch Ult Thin Lancets 31 gauge misc See Rx Instructions .ROUTE Rx Instructions: As directed fluticasone propionate [Flonase Allergy Relief] 50 mcg/actuation spray,suspension 1 spray intranasal DAILY Rx Instructions: administer into each nostril albuterol sulfate 200 mcg capsule, w/inhalation device 1 mcg inhalation DAILY pantoprazole 40 mg tablet,delayed release (DR/EC) 40 mg PO DAILY Qty: 30 5RF Rx Instructions: take one tablet half an hour before breakfast famotidine 40 mg tablet 40 mg PO BEDTIME Qty: 30 4RF lidocaine 5 % adhesive patch,medicated 1 patch topical DAILY Rx Instructions: leave on most painful area for up to 12 hrs gabapentin 100 mg capsule 100 mg PO BEDTIME tizanidine 4 mg tablet 4 mg PO BID PRN Referrals: Sole Wilkinson MD [Primary Care Provider] - Stand Alone Forms: Work/School Release Interventions: ED Discharge Assessment Last Done: 11/23/23 14:37 Discharge Date/Time: 11/23/23 14:38 Print Language: Ukrainian
[2023-11-23 11:38] LABS: Alanine Aminotransferase 14 U/L (0-31); Albumin Level 4.1 g/dL (3.5-5.0); Alkaline Phosphatase 58 U/L (39-117); Aspartate Amino Transferase 13 U/L (5-31); Bilirubin Direct 0.1 mg/dL (0.0-0.5); Bilirubin Total 0.3 mg/dL (0.0-1.0); HCG Quantitative < 2 mIU/mL; Lipase 87 U/L (8-78); Total Protein 7.9 g/dL (6.5-8.0)
[2023-11-23] MEDS: 0.9 % Sodium Chloride 1,000 ML 999 ML IV (11:50)
[2023-11-23] MEDS: Morphine Sulfate 4 MG/ML CARTRIDGE IVPUSH (11:52)
[2023-11-23] MEDS: ondansetron HCL 4 MG/2 ML VIAL IVPUSH (11:53)
[2023-11-23 12:12] VITALS: BP 136/73; PULSE 73; RESP 16; TEMP 37.1; O2SAT 96
[2023-11-23 12:49] LABS: Appearance Urine Cloudy; Color Urine Dark Yellow; Glucose Urine UA 500 mg/dL (Negative); Leukocyte Esterase Urine Negative (Negative); Nitrite Urine Negative (Negative); Specific Gravity - Urine >= 1.030 (1.005-1.025); UMIC TRIGGER UACC YES; Urine Blood Moderate (2+) (Negative); Urine Ketones 15 mg/dL (Negative); Urine Protein 30 (1+) mg/dL (Neg-Trace)
[2023-11-23 12:51] LABS: UPreg QC Valid YES; Urine Pregnancy NEGATIVE (NEGATIVE)
[2023-11-23 13:00] LABS: Bacteria Urine Trace (None Seen); RBC Urine >20 /HPF (0-2); WBC Urine 0-5 /HPF (0-5)
[2023-11-23] MEDS: iohexoL 350 MG/ML 100 ML INFUS..BTL 85 ML IV (13:23)
[2023-11-23 14:36] VITALS: BP 135/78; PULSE 76; RESP 17; O2SAT 98
== END 2023-11-23 14:38 | disposition home or self-care (01) ==
PROVIDERS: Physician Assistant Medical; Emergency Provider Emergency Medicine Emergency Medical Services; PCP General Practice
DX: N39.0 Urinary tract infection, site not specified (principal); R10.9 Unspecified abdominal pain; R11.2 Nausea with vomiting, unspecified; Z11.52 Encounter for screening for COVID-19; Z79.899 Other long term (current) drug therapy
CPT/HCPCS: 74177; 80048; 80076; 81001; 81025; 83690; 84702; 85025; 87502; 87635; 96361; 96374; 96375; 99284; J2270; J2405; Q9967

== ENCOUNTER 2023-11-24 11:56 | Outpatient (REF) | payer MEDICAID, SELFPAY | END 2023-11-24 11:57 | disposition home or self-care (01) | LOC: HO.MAMMO 11:56 | PROVIDERS: PCP General Practice; Visit Provider General Practice | DX: Z12.31 Encounter for screening mammogram for malignant neoplasm of breast (principal) | CPT/HCPCS: 77063; 77067 ==

== ENCOUNTER → 2023-11-24 12:00 | Outpatient (BNV) | payer MEDICAID, SELFPAY | PROVIDERS: PCP General Practice; Visit Provider Radiology Diagnostic Radiology | DX: Z12.31 Encounter for screening mammogram for malignant neoplasm of breast (principal) | CPT/HCPCS: 77063; 77067 ==

== ENCOUNTER 2024-05-26 19:17 | Outpatient (REF) | payer MEDICAID, SELFPAY ==
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
== END 2024-05-26 19:18 | disposition home or self-care (01) ==
LOC: HO.MRI 19:17
PROVIDERS: PCP General Practice; Visit Provider Internal Medicine
DX: M54.41 Lumbago with sciatica, right side (principal); G89.29 Other chronic pain
CPT/HCPCS: 72148

== ENCOUNTER → 2024-05-26 19:17 | Outpatient (BNV) | payer MEDICAID, SELFPAY | PROVIDERS: PCP General Practice; Visit Provider Radiology Diagnostic Radiology | DX: M54.41 Lumbago with sciatica, right side (principal) | CPT/HCPCS: 72148 ==

== ENCOUNTER 2024-08-04 15:16 | Outpatient (REF) | payer MEDICAID, SELFPAY ==
--- NOTE | ~2024-08-04 | XR_ITS ---
EXAMINATION: XR HAND, LEFT CLINICAL INFORMATION: Left thumb crush injury COMPARISON: None available. TECHNIQUE: PA, lateral, and oblique views of the left hand. FINDINGS: No acute cortical disruption or malalignment. No lytic or blastic lesions. No subcutaneous emphysema. No metallic or radiopaque foreign body. XR/XR hand LT min 3V IMPRESSION: No acute fracture or dislocation. Electronically signed by: Ian Torres MD 08/04/2024 03:41 PM EST RP
== END 2024-08-04 15:17 | disposition home or self-care (01) ==
LOC: HO.HHCX 15:16
PROVIDERS: Visit Provider Registered Nurse
DX: S67.02XA Crushing injury of left thumb, initial encounter (principal)
CPT/HCPCS: 73130

== ENCOUNTER → 2024-08-04 15:16 | Outpatient (BNV) | payer MEDICAID, SELFPAY | PROVIDERS: Visit Provider Radiology Diagnostic Radiology | DX: S67.02XA Crushing injury of left thumb, initial encounter (principal) | CPT/HCPCS: 73130 ==

== ENCOUNTER 2025-05-24 18:03 | Outpatient (REF) | payer MEDICAID, SELFPAY ==
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
--- OUTSIDE RECORDS SUMMARY | 2025-05-24 19:02 | XMS_ITS | Encounter Summary ---
Author Organization [employer] Address [address] [facility] [address] [place] [address] Care Team Providers Care Pediatric Neuropsychologist Name Role Phone Sole Wilkinson MD Primary Care Provider [phone] Encounter Details Date Type Department Care Team ([facility] st Contact Info) Description 05/21/2025 Telephone [facility] [address] [place], [place] [phone] Sole Wilkinson MD [address] [place], [place] [phone] Social History Tobacco Use Types Packs/Day Years Used Date Smoking Tobacco: Every Day Cigarettes Passive Smoke Exposure: Current Smokeless Tobacco: Never Alcohol Use Standard Drinks/Week Comments Never 0 (1 standard drink = 0.6 oz pur e alcohol) Depression Answer Date Recorded Patient Health Questionnaire-9 Score 19 08/21/2024 Patient Health Questionnaire-9 Score 19 08/21/2024 Last PHQ-9: Questionnaire Data Not on file 1 10/22/2023 Housing Stability Answer Date Recorded What is your housing situation today? I have ron wallace 09/28/[address] you li ve. Do you have problems with any of the following? None of the above 09/28/2023 Food Insecurity Answer Date Recorded Within the past 12 months, y ou worried that your food would run out before you got money to buy more: Sometimes True 2023 Within the past 12 months,th e food you bought just didn't last and you didn't have enough money to get more: Sometimes True 09/28/2023 Transportation Answer Date Recorded In the past 12 months, has l ack of transportation kept you from medical appts, meetings, work or from getting things needed for daily living? Yes, it has kept me from medical appointments or getting medications. 09/28/2023 Utilities Answer Date Recorded In the past 12 months, has t he electric, gas, oil or water company threatened to shut off services in your home? No 06/29/2023 Depression Answer Date Recorded Patient Health Questionnaire-2 Score 4 08/21/2024 Comments Unknown Sex and Gender Information Value Date Recorded Sex Assigned at Female 07/13/2022 10:16 AM EDT Legal Sex Female 10:16 AM EDT Gender Identity Female 12/21/2022 5:28 AM EDT Sexual Orientation Choose not to disclose 2021 10:16 AM EDT documented as of this encounter Miscellaneous Notes * Telephone Encounter - Damaris Acuna - 05/21/2025 2:38 PM EDT Pharmacy [facility] attempted outreach call on 05/21/25 for Medication Therapy Management (MTM) appointment; however, unable to reach patient. LVM for patient to contact Damaris Acuna at [phone]. documented in this encounter Plan of Treatment Upcoming Encounters Date Type Department Care Team (Late st Contact Info) Description 06/26/2025 9:15 AM EDT Office Visit [facility] [address] [place] [phone] Sole Wilkinson MD [address] [place] [address] documented as of this encounter Visit Diagnoses Not on filedocumented in this encounter Additional Health Concerns Assessment Noted Time PHQ-9 Depression Total Score: 19 024 3:58 PM EST documented as of this encounter Care Teams Pediatric Neuropsychologist Relationship Specialty Start Date End Date Sole Wilkinson MD [address] [place] [id number] PCP - General Family Medicine 10/19/22 Tasha Mantilla Steam EngineerFull Stack Net Developer 02/04/24 documented as of this encounter
--- OUTSIDE RECORDS SUMMARY | 2025-05-24 19:02 | XMS_ITS | Encounter Summary ---
Author Organization [employer] Address [address] [facility] 7[address] [place] [address] Care Team Providers Care Office Support Name Role Phone Sole Wilkinson MD Primary Care Provider [phone] Reason for Visit * Reason Comments Med Refill Encounter Details Date Type Department Care Team ([facility] st Contact Info) Description 05/24/2025 Refill [facility] [address] [place] [address] Sole Wilkinson MD [address] [place] [address] Social History Tobacco Use Types Packs/Day Years [...] is your housing situation today? I have ronreg wallace 05/24/[address] you [...] AM EDT documented as of this encounter Functional Status * Over the [...] on edge 3 05/14 12:20 PM EDT Machelle Flowers MA Not being able to stop [...] Flowers [place] documented as of this encounter Plan of Treatment Upcoming Encounters Date Type Department Care Team (Late st Contact Info) Description 06/26/2025 9:15 AM EDT Office Visit [facility] [address] [place] [address] Sole Wilkinson MD [address] [place] [address] documented as of this encounter Visit Diagnoses Not on filedocumented in this encounter Additional Health Concerns Assessment Noted Time PHQ-9 Depression Total Score: 23 025 12:18 PM EDT documented as of this encounter Care Teams Office Support Relationship Specialty Start Date End Date Sole Wilkinson MD [address] [place] [address] PCP - General Family Medicine 10/19/22 Tasha Mantilla Wind TechnicianCable Spooler 02/04/24 documented as of this encounter
--- OUTSIDE RECORDS SUMMARY | 2025-05-24 19:02 | XMS_ITS | Encounter Summary ---
Author Organization [employer] Address [address] [facility] [address] [place] [address] Care Team Providers Care Power Driven Brush Maker Name Role Phone Sole Wilkinson MD Primary Care Provider [phone] Encounter Details Date Type Department Care Team (Latest Contact Info) Description 05/24/2025 Travel Social History Tobacco Use Types Packs/Day Years [...] your housing situation today? I have ron sing 05/24/[address] you li [...] Description 06/26/2025 9:15 AM EDT Office Visit [facility] [address] [place] [address] Sole Wilkinson MD [address] [place] [address] documented as of this encounter Visit Diagnoses Not on filedocumented in this encounter Additional Health Concerns Assessment Noted Time PHQ-9 Depression Total Score: 23 025 12:18 PM EDT documented as of this encounter Care Teams Power Driven Brush Maker Relationship Specialty Start Date End Date Sole Wilkinson MD [address] [place], [place] [phone] PCP - General Family Medicine 10/19/22 Tasha Mantilla Cloth BookerPizza Baker 02/04/24 documented as of this encounter
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
--- OUTSIDE RECORDS SUMMARY | 2025-05-24 19:02 | XMS_ITS | Clinical Summary ---
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 images are generated from the tomosynthesis. FINDINGS: There are scattered areas of fibroglandular density (ACR BI-RADS breast composition Category b). There are no significant masses, abnormal calcifications, or other abnormalities. MM/MM tomosynthesis screening BI IMPRESSION: No mammographic evidence of malignancy. ASSESSMENT: BI-RADS BI-RADS 1 - Negative RECOMMENDATION: Routine annual mammography screening. 1 year F/U This examination should not preclude the clinical evaluation of a suspicious palpable abnormality. This patient's information was entered into a reminder system with a target due date for their next mammogram. Dictated By: Celestina Braun MD Signed By: <Electronically signed by Celestina Braun MD in OV> 11/29/23 0555 DD/ 1215 TD/TT: Foot Roentgenologist: Procedure Note Donotuseinterpreter, Image - 11/29/2023 [facility] [address] [place] [address] Mammography Report Signed Patient: Johnnie Beckham#: [id number] : 1980Acct:[id number] Age/Sex: 43 / FADM Date: 11/24/23 Loc: [facility] Attending Dr: Sole Wilkinson MD Ordering Physician: Elza Wilkinsonults: 1Negative Date of Service: 11/24/23Follow Up: 1 Year From Orig inal Mammogram Procedure(s): MM tomosynthesis screening BI Accession Number(s): [id number] cc: Sole Wilkinson EXAMINATION: MM SCREENING DIGITAL BREAST TOMOSYNTHESIS, BILATERAL CLINICAL INFORMATION: Screening. Asymptomatic. COMPARISON: Mammography: This study is compared with prior exams dating back to 2021. TECHNIQUE: Digital breast tomosynthesis is performed in both the craniocaudal and mediolateral oblique views along with computer-aided detection (CAD). Synthesized 2D images are generated from the tomosynthesis. FINDINGS: There are scattered areas of fibroglandular density (ACR BI-RADS breast composition Category b). There are no significant masses, abnormal calcifications, or other abnormalities. MM/MM tomosynthesis screening BI IMPRESSION: No mammographic evidence of malignancy. ASSESSMENT: BI-RADS BI-RADS 1 - Negative RECOMMENDATION: Routine annual mammography screening. 1 year F/U This examination should not preclude the clinical evaluation of a suspicious palpable abnormality. This patient's information was entered into a reminder system with a target due date for their next mammogram. Dictated By: Celestina Braun MD Signed By: <Electronically signed by Celestina Braun MD in OV> 11/29/23 0555 DD/ 1215 TD/TT: Foot Roentgenologist: Sole Wilkinson MD IMG BI PROCEDURES Final Result * THINPREP TIS PAP AND HPV mRNA E6/E7 WITH REFLEX TO HPV 16,18/45 (07/20/2022 10:24 AM EST) Clinical Information: None given [facility] COMMENT SEE COMMENT [facility] Comment: EXPLANATORY NOTE: The Pap is a screening test for cervical cancer. It is not a diagnostic test and is subject to false negative and false positive results. It is most reliable when a satisfactory sample, regularly obtained, is submitted with relevant clinical findings and history, and when the Pap result is evaluated along with historic and current clinical information. COMMENT: This Pap test has been evaluated with computer assisted technology. [facility] Nut Sheller Machine Operator : SEE COMMENT [facility] Comment: MSM, CT(ASCP) CT screening location: [place] [address] HPV nRNA E6/E7 Not Detected Not Detected CONVERTED [facility] Comment: Methodology: Allergy Physician-Mediated Amplification This assay detects E6/E7 viral messenger RNA (mRNA) from 14 high-risk HPV types (16,18,31,33,35,39,45,51,52,56,58,59,66,68). Cervical sources are required for HPV testing. If a vaginal source from a patient who has had a total hysterectomy with removal of cervix was submitted, please contact the testing laboratory for alternative testing options. For additional information, please refer to http://education.[employer]/faq/FHN823f1 (This link if provided for information/ educational purposes only.) Interpretation/R esult: Negative for intraepithelial lesion or malignancy. [facility] LMP: NONE GIVEN [facility]ED [facility] Prev. BX: NONE GIVEN [facility]VERTED [facility] Prev. PAP: NONE GIVEN [facility] SOURCE: None given [facility] Statement Of Adequacy: SEE COMMENT [facility] Comment: Satisfactory for evaluation. Endocervical/transformation zone component present. Age and/or menstrual status not provided 07/20/2022 10:2 4 AM EST Arsenio Frost MD LAB PATHOLOGY ORDERABLES Fin al Result Performing Organization Address [facility] de Phone Number CONVERTED [facility]GAC[facility] * (ABNORMAL) ALBUMIN, RANDOM URINE W/CREATININE (02/16/2022 4:17 PM EDT) Microalbumin Urine 1.5 See Note: mg/dL [facility] Comment: Reference Range: Reference Range Not established Microalb/Creat Ratio 4 <30 mcg/mg creat [facility] Comment: The ADA defines abnormalities in albumin excretion as follows: Albuminuria Category Result (mcg/mg creatinine) Normal to Mildly increased <30 Moderately increased 30-299 Severely increased > OR = 300 The ADA recommends that at least two of three specimens collected within a 3-6 month period be abnormal before considering a patient to be within a diagnostic category. Creatinine, Urine 423(H) 20 - 275 mg/dL [facility] Comment: Verified by repeat analysis. 02/16/2022 4:17 PM EDT Arsenio Frost MD LAB URINE ORDERABLES Final R esult Performing Organization Address [facility] de Phone Number [facility] [address] * (ABNORMAL) LIPID PANEL, STANDARD (02/16/2022 4:17 PM EDT) Chol/HDLC Ratio 3.0 <5.0 (calc) [facility] Cholesterol, Total 130 <200 mg/dL [facility] HDL Cholesterol 44(L) > OR = 50 mg/dL [facility] LDL Cholesterol 66 mg/dL (calc) [facility] Comment: Reference range: <100 Desirable range <100 mg/dL for primary prevention; <70 mg/dL for patients with CHD or diabetic patients with > or = 2 CHD risk factors. LDL-C is now calculated using the Willian-Michaela calculation, which is a validated novel method providing better accuracy than the Friedewald equation in the estimation of LDL-C. Willian GRAY et al. DYLON. 2013;310(19): 2475-2852 (http://education.[employer]/faq/JVK725) Non-HDL Cholesterol 86 <130 mg/dL (calc) [facility] Comment: For patients with diabetes plus 1 major ASCVD risk factor, treating to a non-HDL-C goal of <100 mg/dL (LDL-C of <70 mg/dL) is considered a therapeutic option. Triglycerides 118 <150 mg/dL [facility] 02/16/2022 4:17 PM EDT Arsenio Frost MD LAB BLOOD ORDERABLES Final R esult Performing Organization Address [facility] de Phone Number [facility] [place] [address], * HIV AB/AG (09/28/2019 3:36 PM EST) HIV AG/AB NONREACTIVE NR [facility] Comment: HIV-1 p24 Ag and/or HIV-1/HIV-2 Ab not detected. A test result that is nonreactive does not exclude the possibility of exposure to or infection with HIV-1 and/or HIV-2. Nonreactive results in this assay for individuals with prior exposure to HIV-1 and/or HIV-2 may be due to antigen and antibody levels that are below the limit of detection of this assay. The Bang Patent Attorney HIV Ag/Ab Combo assay result and supplemental assay results should be interpreted in conjunction with the patient's clinical presentation, history and other laboratory results. If the results are inconsistent with clinical evidence, additional testing is suggested to confirm the result. 09/28/2019 3:36 PM EST Arsenio Frost MD HISTORICAL/NON ORDERABLE LAB S Final Result Performing Organization Address [facility] Phone Number [facility] [address] from Last 3 Months or Most Recently Relevant to Health Maintenance [place] [employer] D[place]AL[place] STAND ADULT Care Teams Customer Service Agent Relationship Specialty Start Date End Date Sole Wilkinson MD [address] [place] [address] [place] [address] PCP - General Family Medicine 10/19/22 Tasha Mantilla Refuge ManagerAssistant Merchandise Manager 02/04/24
--- OUTSIDE RECORDS SUMMARY | 2025-05-24 19:03 | XMS_ITS | Encounter Summary ---
Author Organization [employer] Address [address] [facility] 7t [place] [address] Care Team Providers Care Boarder Hand Name Role Phone Sole Wilkinson MD Primary Care Provider [phone] Reason for Visit * Reason Comments Med Refill Encounter Details Date Type Department Care Team (Late st Contact Info) Description 10/08/2023 Refill [facility] [address] [place] [address] Dalila Garcia, ANP [address] [place], [place] [phone] Neck pain Social History Tobacco Use Types Packs/Day Years [...] AM EDT documented as of this encounter Plan of Treatment Upcoming Encounters Date Type Department Care Team (Late st Contact Info) Description 06/26/2025 9:15 AM EDT Office Visit [facility] [address] [place] [address] Sole Wilkinson MD [address] [place] [address] documented as of this encounter Visit Diagnoses Diagnosis Neck pain Cervicalgia documented in this encounter Additional Health Concerns Assessment Noted Time PHQ-9 Depression Total Score: 19 023 2:06 PM EDT documented as of this encounter Care Teams Boarder Hand Relationship Specialty Start Date End Date Sole Wilkinson MD [address] [place] [address] PCP - General Family Medicine 10/19/22 Tasha Mantilla Cuff Setter OverlockCatalog Librarian 02/04/24 documented as of this encounter
--- OUTSIDE RECORDS SUMMARY | 2025-05-24 19:03 | XMS_ITS | Encounter Summary ---
Author Organization [employer] Address [address] [facility] 7t [place] [address] Care Team Providers Care Typer Name Role Phone Sole Wilkinson MD Primary Care Provider [phone] Reason for Visit * Reason Onset Date Comments Med Refill 03/09/2024 Encounter Details Date Type Department Care Team (Late st Contact Info) Description 03/09/2024 Refill [facility] [address] [place] [address] Eliza Dave MD [address] [place] [address] Mild intermittent asthma with (acute) exacerbation Social History Tobacco Use Types Packs/Day Years Used Date Smoking Tobacco: Every Day Cigarettes Passive Smoke Exposure: Current Smokeless Tobacco: Never Alcohol Use Standard Drinks/Week Comments Never 0 (1 standard drink = 0.6 oz pur e alcohol) Depression Answer Date Recorded Patient Health Questionnaire-9 Score 22 01/13/2024 Patient Health Questionnaire-9 Score 22 01/13/2024 Last PHQ-9: Questionnaire Data Not on file 0 01/13/2024 Housing Stability Answer Date Recorded What is [...] Date Recorded Patient Health Questionnaire-2 Score 4 01/13/2024 Comments Unknown Sex and Gender Information Value [...] Description 06/26/2025 9:15 AM EDT Office Visit [facility] [address] [place] [address] Sole Wilkinson MD [address] [place] [address] documented as of this encounter Visit Diagnoses Diagnosis Mild intermittent asthma with (acute) exacerbation documented in this encounter Additional Health Concerns Assessment Noted Time PHQ-9 Depression Total Score: 22 024 10:09 AM EDT documented as of this encounter Care Teams Typer Relationship Specialty Start Date End Date Sole Wilkinson MD [address] [place] [address] PCP - General Family Medicine 10/19/22 Tasha Mantilla Make Up OperatorClaims Service Representative 02/04/24 documented as of this encounter
--- OUTSIDE RECORDS SUMMARY | 2025-05-24 19:03 | XMS_ITS | Encounter Summary ---
Author Organization [employer] Address [address] [facility] [address] 7[address] [place] [address] Care Team Providers Care Insurance Claims Processor Name Role Phone Sole Wilkinson MD Primary Care Provider [phone] Reason for Visit * Reason Onset Date Comments appt 03/13/2024 Encounter Details Date Type Department Care Team (Late st Contact Info) Description 03/13/2024 Telephone [facility] [address] [place] [address] Gris Chandra BDSammie appt Social History Tobacco Use Types Packs/Day Years [...] encounter Miscellaneous Notes * Telephone Encounter - Clau Rodartes - 03/13/2024 9:48 AM EDT Patient is active requested for a limited oral evaluation from emergency appt on 03/02. I did let her know that she will get a call and that elma appt is active requested and office reaches out to patients in order. She is concerned about pain coming back considering that she is done with antibiotics DR documented in this encounter Plan of Treatment Upcoming Encounters Date Type Department Care Team (Late st Contact Info) Description 06/26/2025 9:15 AM EDT Office Visit [facility] [address] [place] [address] Sole Wilkinson MD [address] [place] [address] documented as of this encounter Visit Diagnoses Not on filedocumented in this encounter Additional Health Concerns Assessment Noted Time PHQ-9 Depression Total Score: 22 024 10:09 AM EDT documented as of this encounter Care Teams Insurance Claims Processor Relationship Specialty Start Date End Date Sole Wilkinson MD [address] [place] [address] PCP - General Family Medicine 2/6/23 Tasha Mantilla Microbiology InstructorDirector Of Learning 02/04/24 documented as of this encounter
--- OUTSIDE RECORDS SUMMARY | 2025-05-24 19:03 | XMS_ITS | Encounter Summary ---
Author Organization [employer] Address [address] [place] [address] 7t [place] [address] Care Team Providers Care Paint Formulator Name Role Phone Sole Wilkinson MD Primary Care Provider [phone] Reason for Visit * Reason Onset Date Comments Appointment Request 10/22/2022 Encounter Details Date Type Department Care Team (Late st Contact Info) Description 10/22/2022 Telephone [facility] [address] [place], [place] [phone] Sole Wilkinson MD [address] [place], [place] [phone] Appointment Request Social History Tobacco Use Types Packs/Day Years Used Date Smoking Tobacco: Never Assessed Comments Unknown Sex and Gender Information Value Date Recorded Sex Assigned at Female 07/13/2022 10:16 AM EDT Legal Sex Female 10:16 AM EDT Gender Identity Female 12/21/2022 5:28 AM EDT Sexual Orientation Choose not to disclose 2021 10:16 AM EDT COVID-19 Exposure Response Date Recorded In the last 10 days, have yo u been in contact with someone who was confirmed or suspected to have Coronavirus/COVID-19? No / Unsure 09/29/2022 5:08 PM EST documented as of this encounter Miscellaneous Notes * Telephone Encounter - Nile Orozcoos - 10/22/2022 11:27 AM EST Tc from pt requesting to r/s appt 10/21/22 ( 3 mo DM- Pt needs a TP w/ new Pcp (a1c/gl, cervical cancer screening) Please contact pt at [phone] documented in this encounter Plan of Treatment Upcoming Encounters Date Type Department Care Team ([facility] st Contact Info) Description 06/26/2025 9:15 AM EDT Office Visit [facility] [address] [place] [address] Sole Wilkinson MD [address] [place], [place] [phone] documented as of this encounter Visit Diagnoses Not on filedocumented in this encounter Care Teams Paint Formulator Relationship Specialty Start Date End Date Sole Wilkinson MD [address] [place], [place] [phone] PCP - General Family Medicine 10/19/22 Tasha Mantilla Psychological Science ProfessorPlanishing Hammer Operator 02/04/24 documented as of this encounter
--- OUTSIDE RECORDS SUMMARY | 2025-05-24 19:03 | XMS_ITS | Encounter Summary ---
Author Organization [employer] Address [address] [facility] 7 [place] [address] Care Team Providers Care Brazing Furnace Feeder Name Role Phone Sole Wilkinson MD Primary Care Provider [phone] Reason for Visit * Reason Onset Date Comments Med Refill 03/09/2024 Encounter Details Date Type Department Care Team ([facility] st Contact Info) Description 03/09/2024 Refill [facility] [address] [place] [address] Eliza Dave MD [address] [place] [address] Social History Tobacco Use Types Packs/Day Years [...] Description 06/26/2025 9:15 AM EDT Office Visit [facility] [address] [place] [address] Sole Wilkinson MD [address] [place] [address] documented as of this encounter Visit Diagnoses Not on filedocumented in this encounter Additional Health Concerns Assessment Noted Time PHQ-9 Depression Total Score: 22 024 10:09 AM EDT documented as of this encounter Care Teams Brazing Furnace Feeder Relationship Specialty Start Date End Date Sole Wilkinson MD [address] [place] [address] PCP - General Family Medicine 10/19/22 Tasha Mantilla Deputy HarbormasterAmmonia Box Operator 02/04/24 documented as of this encounter
--- OUTSIDE RECORDS SUMMARY | 2025-05-24 19:03 | XMS_ITS | Encounter Summary ---
Author Organization [employer] Address [address] [facility] [address] 7t [place] [address] Care Team Providers Care Manager Retail Name Role Phone Sole Wilkinson MD Primary Care Provider [phone] Reason for Visit * Reason Onset Date Comments Med Refill 03/09/2024 Encounter Details Date Type Department Care Team (Late st Contact Info) Description 03/09/2024 Refill [facility] [address] [place] [address] Radha Moore FNP Mild intermittent asthma with (acute) exacerbation Social [...] Description 06/26/2025 9:15 AM EDT Office Visit [facility] [address] [place] [address] Sole Wilkinson MD [address] [place] [address] documented as of this encounter Visit Diagnoses Diagnosis Mild intermittent asthma with (acute) exacerbation documented in this encounter Additional Health Concerns Assessment Noted Time PHQ-9 Depression Total Score: 22 024 10:09 AM EDT documented as of this encounter Care Teams Manager Retail Relationship Specialty Start Date End Date Sole Wilkinson MD [address] [place] [address] PCP - General Family Medicine 10/19/22 Tasha Mantilla Director Of Instructional TechnologySeat Covers Trimmer 02/04/24 documented as of this encounter
--- OUTSIDE RECORDS SUMMARY | 2025-05-24 19:03 | XMS_ITS | Encounter Summary ---
Author Organization [employer] Address [address] [facility] 7t [place] [address] Care Team Providers Care Rn Interventional Name Role Phone Arsenio Frost MD Primary Care Provider Unava Sole Parsons MD Primary Care Provider Reason for Visit * Reason Onset Date Comments triage 10/13/2022 Encounter Details Date Type Department Care Team (Late st Contact Info) Description 10/13/[address] [facility] MED[facility] [address] [place] [address] Arsenio Frost MD triage Social History Tobacco Use Types Packs/Day Years [...] Miscellaneous Notes * Telephone Encounter - Nile Funk - 10/13/2022 12:46 PM EST Symptom: Medication Question Outcome: Schedule a same-day appointment or talk to a nurse or provider today Reason: No high acuity concerns reported by caller The caller accepted this outcome documented in this encounter Plan of Treatment Upcoming Encounters Date Type Department Care Team (Late st Contact Info) Description 06/26/2025 9:15 AM EDT Office Visit [facility] [address] [place] [address] Sole Wilkinson MD [address] [place], [place] [phone] documented as of this encounter Visit Diagnoses Not on filedocumented in this encounter Care Teams Rn Interventional Relationship Specialty Start Date End Date Arsenio Frost MD PCP - General Family Medicine 09/28/19 10/18/22 Sole Wilkinson MD [address] [place] [phone] PCP - General Family Medicine 10/19/22 Tasha Mantilla Ssn/Ssbn Weapons Equipment OperatorDrum Attendant 02/04/24 documented as of this encounter
--- OUTSIDE RECORDS SUMMARY | 2025-05-24 19:03 | XMS_ITS | Encounter Summary ---
Author Organization [employer] Address [address] [facility] 7t [place] [address] Care Team Providers Care Glass Worker Name Role Phone Sole Wilkinson MD Primary Care Provider [phone] Reason for Visit * Reason Onset Date Comments Med Refill 03/09/2024 Encounter Details Date Type Department Care Team (Late st Contact Info) Description 03/09/[address] [facility] [address] [place] [address] Dalila Garcia, ANP [address] [place], [place] [phone] Mild intermittent asthma with (acute) exacerbation Social [...] 06/26/2025 9:15 AM EDT Office Visit [facility] [address] [place] [address] Sole Wilkinson MD [address] [place] [address] documented as of this encounter Visit Diagnoses Diagnosis Mild intermittent asthma with (acute) exacerbation documented in this encounter Additional Health Concerns Assessment Noted Time PHQ-9 Depression Total Score: 22 024 10:09 AM EDT documented as of this encounter Care Teams Glass Worker Relationship Specialty Start Date End Date Sole Wilkinson MD [address] [place] [address] PCP - General Family Medicine 10/19/22 Tasha Mantilla Marketing AdminMainspring Winder 02/04/24 documented as of this encounter
--- OUTSIDE RECORDS SUMMARY | 2025-05-24 19:03 | XMS_ITS | Encounter Summary ---
Author Organization [employer] Address [address] [facility] 7t [place] [address] Care Team Providers Care Clearance Coordinator Name Role Phone Sole Wilkinson MD Primary Care Provider [phone] Reason for Visit * Reason Onset Date Comments Med Refill 03/09/2024 Encounter Details Date Type Department Care Team (Late st Contact Info) Description 03/09/2024 Refill [facility] [address] [place] [address] Sole Wilkinson MD [address] [place] [address] Social History Tobacco Use Types Packs/Day Years [...] Description 06/26/2025 9:15 AM EDT Office Visit [facility] [address] [place] [address] Sole Wilkinson MD [address] [place] [address] documented as of this encounter Visit Diagnoses Not on filedocumented in this encounter Additional Health Concerns Assessment Noted Time PHQ-9 Depression Total Score: 22 024 10:09 AM EDT documented as of this encounter Care Teams Clearance Coordinator Relationship Specialty Start Date End Date Sole Wilkinson MD [address] [place] [address] PCP - General Family Medicine 10/19/22 Tasha Mantilla PairerAgile Developer 02/04/24 documented as of this encounter
--- OUTSIDE RECORDS SUMMARY | 2025-05-24 19:03 | XMS_ITS | Encounter Summary ---
Author Organization [email or web address] Address [address] [facility] 7t [place] [address] Care Team Providers Care Cryptologic Technician Operator/Analyst Name Role Phone Sole Wilkinson MD Primary Care Provider [phone] Reason for Visit * Reason Comments Med Refill Encounter Details Date Type Department Care Team ([facility] st Contact Info) Description 12/27/2023 Refill [facility] [address] [place] [address] Eliza Dave MD [address] [place] [address] Mild intermittent asthma with (acute) exacerbation Social History Tobacco Use Types Packs/Day Years Used Date Smoking Tobacco: Every Day Cigarettes Passive Smoke Exposure: Current Smokeless Tobacco: Never Alcohol Use Standard Drinks/Week Comments Never 0 (1 standard drink = 0.6 oz pur e alcohol) Depression Answer Date Recorded Patient Health Questionnaire-9 Score 25 12/17/2023 Patient Health Questionnaire-9 Score 25 12/17/2023 Last PHQ-9: Questionnaire Data Not on file 0 12/17/2023 Housing Stability Answer Date Recorded What is [...] Date Recorded Patient Health Questionnaire-2 Score 6 12/17/2023 Comments Unknown Sex and Gender Information Value [...] Description 06/26/2025 9:15 AM EDT Office Visit [facility] [address] [place] [address] Sole Wilkinson MD [address] [place] [address] documented as of this encounter Visit Diagnoses Diagnosis Mild intermittent asthma with (acute) exacerbation documented in this encounter Additional Health Concerns Assessment Noted Time PHQ-9 Depression Total Score: 25 024 1:58 PM EDT documented as of this encounter Care Teams Cryptologic Technician Operator/Analyst Relationship Specialty Start Date End Date Sole Wilkinson MD [address] [place] [address] PCP - General Family Medicine 10/19/22 Tasha Mantilla Microsoft Application DeveloperElectro Mechanical Assembler 02/04/24 documented as of this encounter
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
--- OUTSIDE RECORDS SUMMARY | 2025-05-24 19:03 | XMS_ITS | Encounter Summary ---
Author Organization [employer] Address [address] [facility] 7t [place] [address] Care Team Providers Care Sap Abap Developer Name Role Phone Sole Wilkinson MD Primary Care Provider [phone] Reason for Visit * Reason Comments Med Refill Encounter Details Date Type Department Care Team ([facility] st Contact Info) Description 12/29/2024 Refill [facility] [address] [place] [address] Sole Wilkinson MD [address] [place] [address] Social History Tobacco Use Types Packs/Day Years [...] Description 06/26/2025 9:15 AM EDT Office Visit [facility] [address] [place] [address] Sole Wilkinson MD [address] [place] [address] documented as of this encounter Visit Diagnoses Not on filedocumented in this encounter Additional Health Concerns Assessment Noted Time PHQ-9 Depression Total Score: 19 024 3:58 PM EST documented as of this encounter Care Teams Sap Abap Developer Relationship Specialty Start Date End Date Sole Wilkinson MD [address] [place] [address] PCP - General Family Medicine 10/19/22 Tasha Mantilla Geriatric Social Work ProfessorProjection Welding Machine Operator 02/04/24 documented as of this encounter
--- OUTSIDE RECORDS SUMMARY | 2025-05-24 19:03 | XMS_ITS | Encounter Summary ---
Author Organization [employer] Address [address] [facility] 7t [place] [address] Care Team Providers Care Generator Assembler Name Role Phone Sole Wilkinson MD Primary Care Provider [phone] Reason for Visit * Reason Onset Date Comments Chart Prep 05/23/2025 Encounter Details Date Type Department Care Team ([facility] st Contact Info) Description 05/23/2025 Telephone [facility] [address] [place], [place] [phone] Sole Wilkinson MD [address] [place], [place] [phone] Chart Prep Social History Tobacco Use Types Packs/Day Years [...] encounter Miscellaneous Notes * Telephone Encounter - Tracey Morley MA - 05/23/2025 1:47 PM EDT Chart Prep Labs: not applicable Images: not applicable Referrals: not applicable Vaccines due: Covid, Flu, PCV20, Hep B, Hep A, and HPV Screenings: colonoscopy, mammogram, and Hepatitis C Screening, LMP Overdue care gaps: A1c, Glucose, SBIRT, SDOH, PHQ-9, MARTINA-7, Oral health screening, and Disability screen documented in this encounter Plan of Treatment Upcoming Encounters Date Type Department Care Team (Late st Contact Info) Description 06/26/2025 9:15 AM EDT Office Visit [facility] [address] [place] [address] Sole Wilkinson MD [address] [place] [address] documented as of this encounter Visit Diagnoses Not on filedocumented in this encounter Additional Health Concerns Assessment Noted Time PHQ-9 Depression Total Score: 19 024 3:58 PM EST documented as of this encounter Care Teams Generator Assembler Relationship Specialty Start Date End Date Sole Wilkinson MD [address] [place] [address] PCP - General Family Medicine 10/19/22 Tasha Mantilla Quality Control MicrobiologistEpic Application Coordinator 02/04/24 documented as of this encounter
--- OUTSIDE RECORDS SUMMARY | 2025-05-24 19:03 | XMS_ITS | Encounter Summary ---
Author Organization [employer] Address [address] [facility] 7t [place] [address] Care Team Providers Care Non Destructive Testing Supervisor Name Role Phone Sole Wilkinson MD Primary Care Provider [phone] Encounter Details Date Type Department Care Team ([facility] st Contact Info) Description 12/28/2023 Orders Only [facility] [address] [place], [place] [phone] Sole Wilkinson MD [address] [place], [place] [phone] Cervical radiculopathy (Primary Dx) Social History Tobacco Use Types Packs/Day Years [...] Description 06/26/2025 9:15 AM EDT Office Visit [facility] [address] [place] [address] Sole Wilkinson MD [address] [place] [address] documented as of this encounter Visit Diagnoses Diagnosis Cervical radiculopathy- Primary Brachial neuritis or radiculitis nos documented in this encounter Additional Health Concerns Assessment Noted Time PHQ-9 Depression Total Score: 25 024 1:58 PM EDT documented as of this encounter Care Teams Non Destructive Testing Supervisor Relationship Specialty Start Date End Date Sole Wilkinson MD [address] [place] [address] PCP - General Family Medicine 10/19/22 Tasha Mantilla Water Plant OperatorCompliance Nurse 02/04/24 documented as of this encounter
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
== END 2025-05-24 18:04 | disposition home or self-care (01) ==
LOC: HO.HHCLNP 18:03
PROVIDERS: Visit Provider Internal Medicine
DX: R39.9 Unspecified symptoms and signs involving the genitourinary system (principal)
CPT/HCPCS: 87086; 87088; 87186

== ENCOUNTER 2025-06-12 18:25 | Outpatient (REF) | payer MEDICAID, SELFPAY ==
--- OUTSIDE RECORDS SUMMARY | 2025-06-12 13:40 | XMS_ITS | Encounter Summary ---
Author Organization [employer] Address [address] [facility] [address] 7[address] [place] [address] Care Team Providers Care Car Sealer Name Role Phone Sole Wilkinson MD Primary Care Provider [phone] Reason for Visit * Reason Comments UTI Encounter Details Date Type Department Care Team ([facility] st Contact Info) Description 06/12/2025 1:40 PM EDT Office Visit [facility] [address] [place] [address] Jenelle Duque MD [address] [place] [phone] Dysuria (Primary Dx); Routine screening for STI (sexually transmitted infection); Primary hypertension Social History Tobacco Use Types Packs/Day [...] Sign Reading Time Taken Comments Blood Pressure 150/90 06/12/2025 2:03 PM EDT Pulse 88 06/12/2025 1:45 PM EDT Temperature 36.6 C (97.9 F) 06/12/2025 1:45 PM EDT Respiratory Rate 16 06/12/2025 1:45 PM EDT Oxygen Saturation 99% 06/12/2025 1:45 PM EDT Inhaled Oxygen Concentration - - Weight 90.7 kg (200 lb) 06/12/2025 1:45 PM EDT Height - - Body Mass Index 34.33 05/24/2025 11:38 AM EDT documented in this encounter Progress Notes * Jenelle Duque MD - 06/12/2025 1:40 PM EDT Liberty Beckham is a 44 y.o. female here with past medical history type 2 diabetes for evaluation of dysuria and hesitancy beginning 2 weeks ago. Other associated symptoms include: back pain, diarrhea, vaginal discharge, and vaginal itching. Fever has been absent. Symptoms which are not present include: abdominal pain and dysuria. Antibiotic use within past three months: Macrobid 05/24/25 had > 100 ,000 E.Coli, bain sensitive, treated with Macrobid. Objective BP (!) 161/100 (BP Location: Left arm, Patient Position: Sitting, BP Cuff Size: Adult) Pulse 88 Temp 97.9 ??F (36.6 ??C) (Temporal) Resp 16 Wt 200 lb (90.7 kg) SpO2 99% BMI 34.33 kg/m?? Physical Exam Constitutional: Appearance: Normal appearance. Cardiovascular: Rate and Rhythm: Normal rate and regular rhythm. Heart sounds: Normal heart sounds. Abdominal: Tenderness: There is no abdominal tenderness. There is no right CVA tenderness or left CVA tenderness. Musculoskeletal: Cervical back: Normal range of motion and neck supple. Neurological: Mental Status: She is alert. Lab review No visits with results within 1 Day(s) from this visit. Latest known visit with results is: Office Visit on 05/24/2025 Component Date Value Ref Range Status Glucose Blood, POC 05/24/2025 186 60 - 200 mg/dL Final QC Media Lot # 05/24/2025 [id number] Final Lot# Expiration Date 05/24/2025 113,025 Final Hemoglobin A1C 05/24/2025 8.3 (A) 4.0 - 5.7 % Final QC Media Lot # 05/24/2025 [id number] Final Lot# Expiration Date 05/24/2025 42,[id number] Final Color, UA 05/24/2025 Yellow Final Clarity, UA 05/24/2025 Cloudy Final Glucose, UA 05/24/2025 Negative Final Bilirubin, UA 05/24/2025 Negative Final Ketones, UA 05/24/2025 Positive Final trace Spec Grav, UA 05/24/2025 1.030 Final Blood, UA 05/24/2025 Positive (A) Negative, None Detected Final moderate pH, UA 05/24/2025 6.0 Final Protein, UA 05/24/2025 Trace Final 30mg/dl Urobilinogen, UA 05/24/2025 0.2 Final Leukocytes, UA 05/24/2025 Trace Negative, Rare, Trace Final Nitrite, UA 05/24/2025 None Detected Negative, None Detected Final Appearance, UA 05/24/2025 yellow/ cloudy Final QC Media Lot # 05/24/2025 [id number] Final Lot# Expiration Date 05/24/2025 22,826 Final Annette was seen today for uti. Diagnoses and all orders for this visit: Dysuria (Primary) - Urinalysis, Complete, with Reflex to Culture; Future - POCT urinalysis dipstick manually resulted - sulfamethoxazole-trimethoprim (Bactrim DS) 800-160 MG tablet; Take 1 tablet by mouth 2 times daily for 3 days. - phenazopyridine (Pyridium) 100 MG tablet; Take 1 tablet (100 mg) by mouth if needed in the morning and at bedtime for bladder spasms. - Bacterial Vaginosis, Yeast and Trich; Future Routine screening for STI (sexually transmitted infection) - Chlamydia/N. Gonorrhoeae RNA, TMA, Vagina - HIV-1/2 Antigen and Antibodies, Fourth Generation, with Reflexes; Future - Hepatitis C Antibody with Reflex to HCV, RNA, Quantitative, Real-Time PCR; Future - Syphilis Screen; Future Assessment & Plan Dysuria Likely continuation of acute UTI based on history, exam and urine dip. No clinical evidence of acute abdomen or pyelonephritis.Allergies reviewed. -Urinalysis and urine culture sent to the lab -Empiric antibiotics started Bactrum DS BID for 3 days -Advised to seek medical attention if no improvement or worsening of symptoms -ER precautions reviewed. -will check yeast due to recent antibiotic use. She denies symptoms of BV and agrees to STI testing. Orders: Urinalysis, Complete, with Reflex to Culture; Future POCT urinalysis dipstick manually resulted sulfamethoxazole-trimethoprim (Bactrim DS) 800-160 MG tablet; Take 1 tablet by mouth 2 times daily for 3 days. phenazopyridine (Pyridium) 100 MG tablet; Take 1 tablet (100 mg) by mouth if needed in the morning and at bedtime for bladder spasms. Bacterial Vaginosis, Yeast and Trich; Future Urinalysis, Complete, with Reflex to Culture Routine screening for STI (sexually transmitted infection) Orders: Chlamydia/N. Gonorrhoeae RNA, TMA, Vagina HIV-1/2 Antigen and Antibodies, Fourth Generation, with Reflexes; Future Hepatitis C Antibody with Reflex to HCV, RNA, Quantitative, Real-Time PCR; Future Syphilis Screen; Future Primary hypertension Pt reprots BP high due to being in waiting room with others. Reprots BP is at goal at home and she takes her medicaion daily. Repeat improved but not at goal. documented in this encounter Plan of Treatment Upcoming Encounters Date Type Department Care Team (Late st Contact Info) Description 06/26/2025 9:15 AM EDT Office Visit [facility] [address] [place] [address] Sole Wilkinson MD [address] [place], [place] [phone] 10/26/2025 10:30 AM EST Office Visit [facility] [address] [place], [place] [phone] Yonathan, [place], OD [address] [place] [address] Scheduled Orders Name Type Priority Associated Diagnoses Orde r Schedule Urinalysis, Complete, with Reflex to Culture Lab Routine Dysuria Expected: 06/12/2025 (Approximate), Expires: 06/12/2026 Bacterial Vaginosis, Yeast and Trich Microbiology Routine Dysuria Expected: 06/12/2025 (Approximate), Expires: 06/12/2026 Chlamydia/N. Gonorrhoeae RNA, TMA, Vagina Microbiology Routine Routine screening for STI (sexually transmitted infection) Ordered: 06/12/2025 HIV-1/2 Antigen and Antibodies, Fourth Generation, with Reflexes Lab Routine Routine screening for STI (sexually transmitted infection) Expected: 06/12/2025 (Approximate), Expires: 06/12/2026 Hepatitis C Antibody with Reflex to HCV, RNA, Quantitative, Real-Time PCR Lab Routine Routine screening for STI (sexually transmitted infection) Expected: 06/12/2025 (Approximate), Expires: 06/12/2026 Syphilis Screen Lab Routine Routine screening for STI (sexually transmitted infection) Expected: 06/12/2025 (Approximate), Expires: 06/12/2026 Urinalysis, Complete, with Reflex to Culture Lab Routine Dysuria Ordered: 06/12/2025 documented as of this encounter Procedures Procedure Name Priority Date/Time Associated Diagnosis Comments POCT URINALYSIS DIPSTICK Routine 06/12/2025 2:01 PM EDT Dysuria documented in this encounter Results * (ABNORMAL) POCT urinalysis dipstick manually resulted (06/12/2025 2:01 PM EDT) Color, UA Yellow Clarity, UA Cloudy Glucose, UA Negative Bilirubin, UA Negative Ketones, UA Negative Spec Grav, UA 1.010 Blood, UA Positive(A) Negative, None Detected Comment:Large pH, UA 6.0 Protein, UA Negative Urobilinogen, UA 0.2 Leukocytes, UA Trace Negative, Rare, Trace Nitrite, UA Negative Negative, None Detected Appearance, UA OK Urine 06/12/2025 2:01 PM EDT Jenelle Duque MD POINT OF CARE TEST ENTER/E DIT ORDERABLES Final Result documented in this encounter Visit Diagnoses Diagnosis Dysuria- Primary Routine screening for STI (sexually transmitted infection) Screening examination for venereal disease Primary hypertension Unspecified essential hypertension documented in this encounter Additional Health Concerns Assessment Noted Time PHQ-9 Depression Total Score: 23 025 12:18 PM EDT documented as of this encounter Care Teams Car Sealer Relationship Specialty Start Date End Date Sole Wilkinson MD [address] [place] [phone] PCP - General Family Medicine 10/19/22 Tasha Mantilla Robot TechnicianMixing Machine Tender Cork Gasket 02/04/24 documented as of this encounter
--- OUTSIDE RECORDS SUMMARY | 2025-06-12 18:29 | XMS_ITS | Encounter Summary ---
Author Organization [employer] Address [address] [facility] 7t h Floor [address] Care Team Providers Care Compliance Analyst Name Role Phone Sole Wilkinson MD Primary Care Provider [phone] Reason for Visit * Reason Comments Med Refill Encounter Details Date Type Department Care Team (Late st Contact Info) Description 10/08/2023 Refill [facility] MEDICINE 230 [place] [address] Dalila Garcia, ANP 230 [place], [place] [phone] Neck pain Social History Tobacco Use Types [...] Visit [facility] MEDICINE 230 [place] [address] Sole Wilkinson MD 230 [place] [address] 10/26/2025 10:30 AM EST Office Visit [facility] OPTOMETRY [address] [place] [address] Yonathan, [place], OD 230 [place] [address] documented as of this encounter Visit Diagnoses Diagnosis Neck pain Cervicalgia documented in this encounter Additional Health Concerns Assessment Noted Time PHQ-9 Depression Total Score: 19 023 2:06 PM EDT documented as of this encounter Care Teams Compliance Analyst Relationship Specialty Start Date End Date Sole Wilkinson MD 230 [place], [place] [phone] PCP - General Family Medicine 10/19/22 Tasha Mantilla Operations And Maintenance TechnicianMicrobiology Technician 02/04/24 documented as of this encounter
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
--- OUTSIDE RECORDS SUMMARY | 2025-06-12 18:29 | XMS_ITS | Encounter Summary ---
Author Organization [employer] Address [address] [facility] [address] 7t [place] [address] Care Team Providers Care Exterminator Termite Name Role Phone Sole Wilkinson MD Primary Care Provider [phone] Reason for Visit * Reason Onset Date Comments appt 03/13/2024 Encounter Details Date Type Department Care Team (Late st Contact Info) Description 03/13/2024 Telephone [facility] ADULT DENTAL [address] [place] [address] Gris Chandra BDSammie appt Social History Tobacco [...] Miscellaneous Notes * Telephone Encounter - Clau Rolan - 03/13/2024 9:48 AM EDT Patient is [...] Office Visit [facility] MEDICINE 230 [place] [address] Sole Wilkinson MD 230 [place] [address] 10/26/2025 10:30 AM EST Office Visit [facility] OPTOMETRY [address] [place] [address] Helena Mcmanus, OD 230 [place] [address] documented as of this encounter Visit Diagnoses Not on filedocumented in this encounter Additional Health Concerns Assessment Noted Time PHQ-9 Depression Total Score: 22 024 10:09 AM EDT documented as of this encounter Care Teams Exterminator Termite Relationship Specialty Start Date End Date Sole Wilkinson MD 230 [place] [address] PCP - General Family Medicine 10/19/22 Tasha Mantilla Mandarin TutorDomestic Freight Forwarder 02/04/24 documented as of this encounter
--- OUTSIDE RECORDS SUMMARY | 2025-06-12 18:29 | XMS_ITS | Encounter Summary ---
Author Organization [employer] Address 75 [facility] 7 [place] [address] Care Team Providers Care Film Librarian Name Role Phone Sole Wilkinson MD Primary Care Provider [phone] Reason for Visit * Reason Onset Date Comments Med Refill 03/09/2024 Encounter Details Date Type Department Care Team ([facility] st Contact Info) Description 03/09/2024 Refill [facility] MEDICINE 230 [place] [address] Eliza Dave MD 230 [place] [address] Social History Tobacco Use Types Packs/Day Years [...] Description 06/26/2025 9:15 AM EDT Office Visit [facility] MEDICINE [address] [place] [address] Sole Wilkinson MD 230 [place] [address] 10/26/2025 10:30 AM EST Office Visit [facility] OPTOMETRY [address] [place] [address] Yonathan, Helena, OD 230 [place] [address] documented as of this encounter Visit Diagnoses Not on filedocumented in this encounter Additional Health Concerns Assessment Noted Time PHQ-9 Depression Total Score: 22 024 10:09 AM EDT documented as of this encounter Care Teams Film Librarian Relationship Specialty Start Date End Date Sole Wilkinson MD 230 [place] [address] PCP - General Family Medicine 10/19/22 Tasha Mantilla Wash Oil Pump Operator HelperPharmacist 02/04/24 documented as of this encounter
--- OUTSIDE RECORDS SUMMARY | 2025-06-12 18:29 | XMS_ITS | Encounter Summary ---
Author Organization [employer] Address 75 [facility] 7t [place] [address] Care Team Providers Care Belt Maker Name Role Phone Arsenio Frost MD Primary Care Provider Unava Sole Parsons MD Primary Care Provider [phone] Reason for Visit * Reason Onset Date Comments triage 10/13/2022 Encounter Details Date Type Department Care Team (Late st Contact Info) Description 10/13/2022 Telephone [facility] MEDICINE 230 [place] [address] Arsenio Frost MD triage Social History Tobacco [...] Office Visit [facility] MEDICINE [address] [place] [address] Sole Wilkinson MD 230 [place], [place] [phone] 10/26/2025 10:30 AM EST Office Visit [facility] OPTOMETRY [address] [place], [place] [phone] Helena Mcmanus, OD 230 [place], [place] [phone] documented as of this encounter Visit Diagnoses Not on filedocumented in this encounter Care Teams Belt Maker Relationship Specialty Start Date End Date Arsenio Frost MD PCP - General Family Medicine 09/28/19 10/18/22 Sole Wilkinson MD [address] [place], [place] [phone] PCP - General Family Medicine 10/19/22 Tasha Mantilla Social Security Benefits InterviewerBlow Torch Operator 02/04/24 documented as of this encounter
--- OUTSIDE RECORDS SUMMARY | 2025-06-12 18:29 | XMS_ITS | Encounter Summary ---
Author Organization [employer] Address [address] [facility] 7t [place] [address] Care Team Providers Care Geropsychologist Name Role Phone Sole Wilkinson MD Primary Care Provider [phone] Reason for Visit * Reason Onset Date Comments Med Refill 03/09/2024 Encounter Details Date Type Department Care Team (Late st Contact Info) Description 03/09/2024 Refill [facility] 230 [place] [address] Eliza Dave MD [address] [place] [address] Mild intermittent asthma with (acute) exacerbation Social [...] Description 06/26/2025 9:15 AM EDT Office Visit [facility] MEDICINE [address] [place] [address] Sole Wilkinson MD 230 [place] [address] 10/26/2025 10:30 AM EST Office Visit [facility] OPTOMETRY [address] [place] [address] Yonathan, [place], OD 230 [place] [address] documented as of this encounter Visit Diagnoses Diagnosis Mild intermittent asthma with (acute) exacerbation documented in this encounter Additional Health Concerns Assessment Noted Time PHQ-9 Depression Total Score: 22 024 10:09 AM EDT documented as of this encounter Care Teams Geropsychologist Relationship Specialty Start Date End Date Sole Wilkinson MD [address] [place] [address] PCP - General Family Medicine 10/19/22 Tasha Mantilla Conduit HelperController Mechanic 02/04/24 documented as of this encounter
--- OUTSIDE RECORDS SUMMARY | 2025-06-12 18:29 | XMS_ITS | Encounter Summary ---
Author Organization [employer] Address [address] [place] [address] 7t [place] [address] Care Team Providers Care Associate Manager Name Role Phone Sole Wilkinson MD Primary Care Provider [phone] Reason for Visit * Reason Onset Date Comments Appointment Request 10/22/2022 Encounter Details Date Type Department Care Team (Late st Contact Info) Description 10/22/2022 Telephone [facility] MEDICINE 230 [place], [place] [phone] Sole Wilkinson MD 230 [place], [place] [phone] Appointment Request Social History Tobacco Use Types [...] cervical cancer screening) Please contact pt at [phone] documented in this encounter Plan of Treatment Upcoming Encounters Date Type Department Care Team (Late st Contact Info) Description 06/26/2025 9:15 AM EDT Office Visit [facility] MEDICINE [address] [place] [address] Sole Wilkinson MD 230 [place] [address] 10/26/2025 10:30 AM EST Office Visit [facility] OPTOMETRY [address] [place] [address] Helena Mcmanus, OD [address] [place] [address] documented as of this encounter Visit Diagnoses Not on filedocumented in this encounter Care Teams Associate Manager Relationship Specialty Start Date End Date Sole Wilkinson MD [address] [place] [address] PCP - General Family Medicine 10/19/22 Tasha Mantilla Reproduction Machine LoaderHuller Operator 02/04/24 documented as of this encounter
--- OUTSIDE RECORDS SUMMARY | 2025-06-12 18:29 | XMS_ITS | Encounter Summary ---
Author Organization [employer] Address [address] [facility] 7t [place] [address] Care Team Providers Care Rf Technician Name Role Phone Sole Wilkinson MD Primary Care Provider [phone] Reason for Visit * Reason Onset Date Comments Med Refill 03/09/2024 Encounter Details Date Type Department Care Team (Late st Contact Info) Description 03/09/2024 Refill [facility] [address] [place] [address] Sole Wilkinson MD 230 [place] [address] Social History Tobacco Use Types Packs/Day Years [...] 06/26/2025 9:15 AM EDT Office Visit [facility] MEDICINE [address] [place] [address] Sole Wilkinson MD [address] [place] [address] 10/26/2025 10:30 AM EST Office Visit [facility] OPTOMETRY [address] [place] [address] Yonathan, [place], OD [address] [place] [address] documented as of this encounter Visit Diagnoses Not on filedocumented in this encounter Additional Health Concerns Assessment Noted Time PHQ-9 Depression Total Score: 22 024 10:09 AM EDT documented as of this encounter Care Teams Rf Technician Relationship Specialty Start Date End Date Sole Wilkinson MD 230 [place] [address] PCP - General Family Medicine 10/19/22 Tasha Mantilla Senior It Security AnalystShirt Sorter 5/24/24 documented as of this encounter
--- OUTSIDE RECORDS SUMMARY | 2025-06-12 18:29 | XMS_ITS | Encounter Summary ---
Author Organization [employer] Address 75 [facility] 7t [place] [address] Care Team Providers Care Over Short And Damage Clerk Name Role Phone Sole Wilkinson MD Primary Care Provider [phone] Reason for Visit * Reason Onset Date Comments Med Refill 06/06/2025 Encounter Details Date Type Department Care Team (Late st Contact Info) Description 06/06/2025 Telephone [facility] MEDICINE 230 [place], [place] [phone] Sole Wilkinson MD 230 [place], [place] [phone] Med Refill Social History Tobacco Use Types Packs/Day Years [...] encounter Miscellaneous Notes * Telephone Encounter - Dread Boggs RN - 06/07/2025 10:21 AM EDT TC x2 placed to patient [phone] regarding below message. Patient informed this RN that she is having recurring UTI's symptoms. Patient was last seen on 05/24/25 for UTI symptoms and was placed onantibiotics. Patient reported that she is still experiencing UTI symptoms even after finishing the course of antibiotics. RN advised patient to go to the [facility] for further evaluation. Patient reported she will go on Wednesday06/08/25 to the Walk in Center. RN advised patient of Days and timesof the Walk in Center. Pt verbalized understanding. PT to F/U PRN. * Telephone Encounter - Apolonia Quevedo - 06/07/2025 9:01 AM EDT Tc from pt retuning call * Telephone Encounter - Dread Boggs RN - 06/06/2025 9:29 AM EDT TC placed to [phone] regarding below message. RN unable to leave an VM d/t patient mailbox being full. PT to F/U PRN. * Telephone Encounter - Mark Onofre - 06/06/2025 9:02 AM EDT TC from pt requesting medication refill. Medications needing refill : nitrofurantoin, macrocrystal-monohydrate, (Macrobid) 100 MG capsule To be sent to: [facility] - [place], [place] - [address] [place] [address] documented in this encounter Plan of Treatment Upcoming Encounters Date Type Department Care Team (Late st Contact Info) Description 06/26/2025 9:15 AM EDT Office Visit [facility] MEDICINE [address] [place] [address] Sole Wilkinson MD [address] [place] [address] 10/26/2025 10:30 AM EST Office Visit [facility] OPTOMETRY [address] [place] [address] Helena Mcmanus, OD [address] [place] [address] documented as of this encounter Visit Diagnoses Not on filedocumented in this encounter Additional Health Concerns Assessment Noted Time PHQ-9 Depression Total Score: 23 025 12:18 PM EDT documented as of this encounter Care Teams Over Short And Damage Clerk Relationship Specialty Start Date End Date Sole Wilkinson MD [address] [place] [address] PCP - General Family Medicine 10/19/22 Tasha Mantilla Marine Gear KeeperClinical Nurse Reviewer 02/04/24 documented as of this encounter
--- OUTSIDE RECORDS SUMMARY | 2025-06-12 18:29 | XMS_ITS | Encounter Summary ---
Author Organization [employer] Address 75 [facility] 7t [place] [address] Care Team Providers Care Client Delivery Manager Name Role Phone Sole Wilkinson MD Primary Care Provider [phone] Reason for Visit * Reason Onset Date Comments Med Refill 03/09/2024 Encounter Details Date Type Department Care Team (Late st Contact Info) Description 03/09/[address] [facility] MEDICINE [address] [place] [address] Dalila Garcia, ANP 230 [place], [place] [phone] Mild intermittent asthma with (acute) exacerbation Social [...] AM EDT Office Visit [facility] MEDICINE [address] [place] [address] Sole Wilkinson MD 230 [place] [address] 10/26/2025 10:30 AM EST Office Visit [facility] OPTOMETRY [address] [place] [address] Yonathan, Helena, OD [address] [place] [address] documented as of this encounter Visit Diagnoses Diagnosis Mild intermittent asthma with (acute) exacerbation documented in this encounter Additional Health Concerns Assessment Noted Time PHQ-9 Depression Total Score: 22 024 10:09 AM EDT documented as of this encounter Care Teams Client Delivery Manager Relationship Specialty Start Date End Date Sole Wilkinson MD [address] [place] [address] PCP - General Family Medicine 10/19/22 Tasha Mantilla Tape SewerEditor Book 02/04/24 documented as of this encounter
--- OUTSIDE RECORDS SUMMARY | 2025-06-12 18:29 | XMS_ITS | Encounter Summary ---
Author Organization [employer] Address 75 [facility] 7t [place] [address] Care Team Providers Care Educational Technologist Name Role Phone Sole Wilkinson MD Primary Care Provider Encounter Details Date Type Department Care Team ([facility] Contact Info) Description 06/12/2025 Telephone [facility] MEDICINE 230 [place], [place] [phone] Sole Wilkinson MD 230 [place], [place] [phone] Social History Tobacco Use Types Packs/Day Years [...] * Telephone Encounter - Damaris Acuna - 06/12/2025 10:27 AM EDT Pharmacy [facility] attempted outreach call on 06/12/25 for Medication Therapy Management (MTM) appointment; however, unable to reach patient. LVM for patient to contact Damaris Acuna at [phone]. documented in this encounter Plan of Treatment Upcoming Encounters Date Type Department Care Team ([facility] st Contact Info) Description 06/26/2025 9:15 AM EDT Office Visit [facility] MEDICINE [address] [place] [address] Sole Wilkinson MD [address] [place] [address] 10/26/2025 10:30 AM EST Office Visit [facility] OPTOMETRY [address] [place] [address] Helena Mcmanus, OD [address] [place] [address] documented as of this encounter Visit Diagnoses Not on filedocumented in this encounter Additional Health Concerns Assessment Noted Time PHQ-9 Depression Total Score: 025 12:18 PM EDT documented as of this encounter Care Teams Educational Technologist Relationship Specialty Start Date End Date Sole Wilkinson MD [address] [place] [address] PCP - General Family Medicine 10/19/22 Tasha Mantilla Brush SanderFruit Trimmer 02/04/24 documented as of this encounter
--- OUTSIDE RECORDS SUMMARY | 2025-06-12 18:29 | XMS_ITS | Encounter Summary ---
Author Organization [employer] Address [address] [facility] 7t [place] [address] Care Team Providers Care Hat And Cap Drying Room Attendant Name Role Phone Sole Wilkinson MD Primary Care Provider [phone] Encounter Details Date Type Department Care Team ([facility] st Contact Info) Description 12/28/2023 Orders Only [facility] [address] [place], [place] [phone] Sole Wilkinson MD [address] [place], [place] [phone] Cervical radiculopathy (Primary Dx) Social History Tobacco [...] Description 06/26/2025 9:15 AM EDT Office Visit [facility] [address] [place] [address] Sole Wilkinson MD [address] [place] [address] 10/26/2025 10:30 AM EST Office Visit [facility] [address] [place] [address] Yonathan, [place], OD [address] [place] [address] documented as of this encounter Visit Diagnoses Diagnosis Cervical radiculopathy- Primary Brachial neuritis or radiculitis nos documented in this encounter Additional Health Concerns Assessment Noted Time PHQ-9 Depression Total Score: 25 024 1:58 PM EDT documented as of this encounter Care Teams Hat And Cap Drying Room Attendant Relationship Specialty Start Date End Date Sole Wilkinson MD [address] [place] [address] PCP - General Family Medicine 10/19/22 Tasha Mantilla Deck OfficerCattle Knocker 02/04/24 documented as of this encounter
--- OUTSIDE RECORDS SUMMARY | 2025-06-12 18:29 | XMS_ITS | Encounter Summary ---
Author Organization [employer] Address [address] [facility] 7t [place] [address] Care Team Providers Care Return Agent Name Role Phone Sole Wilkinson MD Primary Care Provider [phone] Reason for Visit * Reason Onset Date Comments Nurse Triage 07/19/2024 Encounter Details Date Type Department Care Team (Late st Contact Info) Description 07/19/2024 Telephone [facility] [address] [place], [place] [phone] Sole Wilkinson MD [address] [place], [place] [phone] Nurse Triage Social History Tobacco Use Types [...] EST Please see if Alyson christensen in [facility] can meet with or call patient for increased anxiety. Patient request that she meet with only her. Patient has appt with Dr. Guerrero on 07/26/24 10:15am [facility] reports clinician is out at this time [...] as previously ordered and agrees to have [facility] Clinician Alyson meet her at time of [...] Override Reason: No appointments available Override Notes: [facility] messaged with note. Video visit not offered Positive Triage Questions: * Moderate anxiety (e.g., persistent or frequent anxiety symptoms; interferes with sleep, school, or work) * Requesting to talk to a counselor (e.g., mental health worker, psychiatrist) * All higher-acuity triage questions were negative Care Advice Discussed: * Reasons To Call Back - You become worse * Telephone Encounter - Samina Rosa - 07/19/2024 1:15 PM EST Symptom: Headache Outcome: Schedule a same-day appointment or talk to a nurse or provider today Reason: Caller denied all higher acuity questions The caller accepted this outcome. documented in this encounter Plan of Treatment Upcoming Encounters Date Type Department Care Team (Late st Contact Info) Description 06/26/2025 9:15 AM EDT Office Visit [facility] [address] [place] [address] Sole Wilkinson MD [address] [place] [address] 10/26/2025 10:30 AM EST Office Visit [facility] [address] [place] [address] Yonathan, [place], OD [address] [place] [address] documented as of this encounter Visit Diagnoses Not on filedocumented in this encounter Additional Health Concerns Assessment Noted Time PHQ-9 Depression Total Score: 22 024 10:09 AM EDT documented as of this encounter Care Teams Return Agent Relationship Specialty Start Date End Date Sole Wilkinson MD [address] [place] [address] PCP - General Family Medicine 10/19/22 Tasha Mantilla Exhaust Emissions Automotive TechnicianDevelopment Architect 02/04/24 documented as of this encounter
--- OUTSIDE RECORDS SUMMARY | 2025-06-12 18:29 | XMS_ITS | Clinical Summary ---
Author Organization [employer] Address 75 [facility] 7t [place] [address] Care Team Providers Care College And Career Counselor Name Role Phone Sole Wilkinson MD Primary Care Provider [phone] Allergies Active Allergy Reactions Criticality Noted Date Comments Cephalexin 05/17/2023 Referred to registered respiratory therapist to clarify if allergy to doxycycline vs cephalexin ? Doxycycline 05/17/2023 Referred to registered respiratory therapist to clarify if allergy to doxycycline vs [...] mellitus with other specified complication, unspecified whether jail insulin use ([facility]) INJECT ONE PEN (= 4.5MG) SUBCUTANEOUSLY ONCE A WEEK DIRECTED 2 mL 5 Active Alcohol Swabs padsIndications :Diabetic peripheral neuropathy associated with type 2 diabetes mellitus ([facility]) 1 Swab. 3 times daily. Use to test blood sugar three times daily 100 each Active FREESTYLE LITE test stripIndication s:Diabetic peripheral neuropathy associated with type 2 diabetes mellitus ([facility]) TEST BLOOD SUGAR 3 TIMES A DAY 100 each Active Blood Glucose Monitoring Suppl (FreeStyle [place] Lite) w/Device kit Use to test blood sugar 3 times daily 1 kit Active cetirizine (ZyrTEC) 10 MG tablet TAKE 1 TABLET BY MOUTH EVERYDAY AT NOON 90 tablet 3 Active TRUEplus Lancets 33G miscIndications :Type 2 diabetes mellitus with diabetic polyneuropathy, without long-term current use of insulin ([facility]) TEST BLOOD SUGAR THREE TIMES DAILY 100 each 11 Active SUMAtriptan (Imitrex) 25 MG tablet Take [...] EVERY EVENING WITH FOOD 90 tablet 3 025 Active D3-1000 25 MCG (1000 UT) capsule TAKE 1 CAPSULE BY MOUTH AT BEDTIME 90 capsule 3 025 Active losartan (Cozaar) 50 MG tablet TAKE 1 TABLET BY MOUTH EVERYDAY AT NOON 90 tablet 3 025 Active fluticasone (Flonase) 50 MCG/ACT nasal spray INSTILL 2 SPRAYS IN EACH NOSTRIL ONCE DAILY 48 g 3 025 Active famotidine (Pepcid) 20 MG tablet TAKE 1 TABLET BY MOUTH EVERY MORNING 90 tablet 3 025 Active gabapentin (Neurontin) 300 MG capsule TAKE 1 CAPSULE BY MOUTH AT BEDTIME 30 capsule 8 025 Active pantoprazole (ProtoNix) 40 MG EC tabletIndicatio [...] ns:Moderate episode of recurrent major depressive disorder (CMS/HCC) (HCC),PTSD (post-traumatic stress disorder) Take 1 tablet (40 [...] candidiasis. Do not swallow. 30 each 5 Active Albuterol Sulfate (ProAir RespiClick) 108 (90 Base) MCG/ACT aerosol powderIndicatio ns:Mild intermittent asthma with (acute) exacerbation Inhale 2 Inhalations every 4 (four) hours if needed (shortness of breath/ wheezing). 1 each 1 Active nicotine (Nicoderm, Step 3) 7 MG/24HR patch APPLY 1 PATCH TOPICALLY TO THE SKIN IN THE MORNING *DO NOT SMOKE WHILE USING PATCH* 30 patch 3 Active sulfamethoxazol e-trimethoprim (Bactrim DS) 800-160 MG tabletIndicatio ns:Urinary Tract Infection Take 1 tablet by mouth 2 times daily for 3 days. 6 tablet 025 2024 Active phenazopyridine (Pyridium) 100 MG tabletIndicatio ns:Dysuria Take 1 tablet (100 mg) by mouth if needed in the morning and at bedtime for bladder spasms. 4 tablet 025 2025 Active nicotine (Nicoderm CQ) 7 MG/24HR patch Place 1 patch on the skin 1 (one) time each day at the same time. 30 patch 3 024 2024 Discontinued nitrofurantoin, macrocrystal-mo nohydrate, (Macrobid) 100 MG capsuleIndicati ons:UTI symptoms Take 1 capsule (100 mg) by mouth 2 times daily for 7 days. 14 capsule 025 2024 Active Problems Problem Noted Date Diagnosed Date [...] See under asthma exacerbation Moderate episode of recurren t major depressive disorder (CMS/HCC) 08/22/2024 Chronic migraine without aur a without [...] 4:56 PM EDT): Will have surgery at [facility] with Dr Forbes to address this February [...] -will stop doxy and cephalexin -referred to registered respiratory therapist to clarify if actual ATB allergy -benadryl [...] in adult 07/20/2016 Type 2 diabetes mellitus, wi thout long-term current use of insulin 05/08/2016 Assessment [...] for ingrown toenails Eye Exam: 04/2024 at [facility], no ocular complications of DM2 Lipid panel: [...] organization. Date Type Department Care Team Description 06/12/2025 1:40 PM EDT Office Visit [facility] [address] [address] Jenelle Duque MD Dysuria (Primary Dx); Routine screening for STI (sexually transmitted infection); Primary hypertension 06/12/2025 Telephone [facility] [address] [place] [address] Sole Wilkinson MD 06/07/[address] [address] Sole Wilkinson MD NTTS 06/06/[address] [address] Sole Wilkinson MD Med Refill 05/28/2025 Patient Outreach [address] [address] Sole Wilkinson MD Care Coordination ([facility] outreach for [facility] housing search-referral completed ) 05/24/2025 11:15 AM EDT Office Visit [address] [address] Eliza Betancourt MD UTI symptoms (Primary Dx); Type 2 diabetes mellitus with diabetic polyneuropathy, without long-term current use of insulin (CMS/HCC); Gastroesophageal reflux disease, unspecified whether esophagitis present; Essential (primary) hypertension 05/24/2025 Travel 05/24/[address] [address] Sole Wilkinson MD 05/23/[address] [address] Sole Wilkinson MD Chart Prep 05/21/[address] [address] Sole Wilkinson MD Nurse Triage 05/21/[address] [address] Sole Wilkinson MD 05/08/2025 Orders Only [facility] [address] [place] [address] Rubi Pinzon MD Type 2 diabetes mellitus, without long-term current use of insulin (CMS/HCC) (Primary Dx) 03/15/[address] [address] Sole Wilkinson MD chart prep from Last 3 Months Immunizations Immunization Administration [...] (200 lb) 06/12/2025 1:45 PM EDT Height 162.6 cm (5' 4 ) 05/24/2025 11:38 AM EDT Body Mass Index 34.33 05/24/2025 11:38 AM EDT Plan of Treatment Upcoming Encounters Date Type Department Care Team (Late st Contact Info) Description 06/26/2025 9:15 AM EDT Office Visit [facility] [address] [place] [address] Sole Wilkinson MD [address] [place] [address] 10/26/2025 10:30 AM EST Office Visit [facility] [address] [place] [address] Yonathan, [place], OD [address] [place] [address] Health Maintenance Due Date Last Done Comments [...] Dental Prophylaxis 2024 05/16/2024 Mammogram 11/23/2024 11/24/2023, 1210/2021, 08/14/2022, Additional history exists Dental X-Ray: Bitewings 05/06/2025 05/05/2024, 03/02 COVID-19 Vaccine ( season) 2025 Influenza Vaccine (#1) 2025 Pap Smear 07/20/2025 07/20/2022 Diabetes: Hemoglobin A1C 08/23/2025 025, 09/07/2024, 06/09/2024, Additional history exists Diabetes: Foot Exam 09/07/2025 09/07/2024, 09/07/2024, 09/07/2024, Additional history exists Depression Monitoring 11/21/2025 05/24/2025, 025 Eye Exam 02/15/2026 02/16/2024, 01/2024, 02/16/2024, Additional history exists Disability Screening 05/24/2026 05/24/2025 SDOH Screening 05/24/2026 05/24/2025 Tobacco Screening 06/12/2026 06/12/2025 Dental X-Ray: Full Mouth 05/06/2027 05/05/2024, 04/14 [...] DIPSTICK Routine 06/12/2025 2:01 PM EDT Dysuria CULTURE, URINE, ROUTINE Routine 05/24/2025 12:14 PM EDT UTI symptoms POCT URINALYSIS DIPSTICK Routine 05/24/2025 12:10 PM EDT UTI symptoms POCT GLYCATED HEMOGLOBIN, TOTAL Routine 05/24/2025 11:43 AM EDT Type 2 diabetes mellitus with diabetic polyneuropathy, without long-term current use of insulin ([facility]) POCT GLUCOSE Routine 05/24/2025 11:40 AM EDT Type 2 diabetes mellitus with diabetic polyneuropathy, without long-term current use of insulin ([facility]) Full PROPHYLAXIS - ADULT Routine 05/16/2024 2:30 [...] to Health Maintenance Results * (ABNORMAL) POCT urinalysis dipstick manually resulted (06/12/2025 2:01 PM EDT) Only the most recent of2 resultswithin the time period is included. Color, UA Yellow Clarity, UA Cloudy Glucose, UA Negative Bilirubin, UA Negative Ketones, UA Negative Spec Grav, UA 1.010 Blood, UA Positive(A) Negative, None Detected Comment:Large pH, UA 6.0 Protein, UA Negative Urobilinogen, UA 0.2 Leukocytes, UA Trace Negative, Rare, Trace Nitrite, UA Negative Negative, None Detected Appearance, UA OK Urine 06/12/2025 2:01 PM EDT us Jenelle Duque MD POINT OF CARE TEST ENTER/E DIT ORDERABLES Final Result * Urine Culture Routine (05/24/2025 12:14 PM EDT) Urine Urine specimen obtained by clean catch procedure / Unknown 05/24/2025 12:14 PM EDT 05/24/2025 6:03 PM EDT Comment:CC Narrative [facility] - 05/27/2025 8:42 AM EDT Escherichia coli Quant > 100,000 cfu/mL Escherichia coli: Ampicillin 8(S) Escherichia coli: Cefazolin (Urine) <=1(S) Escherichia coli: Cefepime <=0.12(S) Escherichia coli: Ceftriaxone <=0.25(S) Escherichia coli: Ciprofloxacin <=0.06(S) Escherichia coli: Gentamicin <=1(S) Escherichia coli: Nitrofurantoin <=16(S) Escherichia coli: Trimethoprim/Sulfamethoxazole <=20(S) Specimen Source: Urine clean catch us Eliza Jacobson MD LAB MICROBIOLOGY - GE NERAL ORDERABLES Final Result [facility] [address] [place] [address] [phone] * (ABNORMAL) POCT Hgb A1c (05/24/2025 11:43 [...] PM EDT Narrative 11/29/2023 5:58 AM EDT [facility] [address] [place] [address] Mammography Report Signed Patient: Annette Beckham MR#: [id number] : 1980 Acct:[id number] Age/Sex: 43 / F ADM Date: 11/24/23 Loc: HO.MAMMO Attending Dr: Sole Wilkinson MD Ordering Physician: Sole Wilkinson Results: 1Negative Date of Service: 11/24/23 Follow Up: 1 Year From Orig inal Mammogram Procedure(s): MM tomosynthesis screening BI Accession Number(s): [id number] cc: Sole Wilkinson EXAMINATION: MM SCREENING DIGITAL [...] in OV> 11/29/23 0555 DD/ 1215 TD/TT: Glass Lathe Operator: Procedure Note Donotuseinterpreter, Image - 11/29/2023 [facility] [address] [place] [address] Mammography Report Signed Patient: Johnnie Beckham#: [id number] : 1980Acct:[id number] Age/Sex: 43 / FADM Date: 11/24/23 Loc: JOCELINE Attending Dr: Sole Wilkinson MD Ordering Physician: Elza Wilkinsonults: 1Negative Date of Service: 11/24/23Follow Up: 1 Year From Orig inal Mammogram Procedure(s): MM tomosynthesis screening BI Accession Number(s): [id number] cc: Sole Wilkinson EXAMINATION: MM SCREENING DIGITAL [...] in OV> 11/29/23 0555 DD/ 1215 TD/TT: Glass Lathe Operator: Sole Wilkinson MD IM BI PROCEDURES Final Result * THINPREP TIS PAP AND HPV mRNA E6/E7 WITH REFLEX TO HPV 16,18/45 (07/20/2022 10:24 AM EST) Clinical Information: None given [facility] COMMENT SEE COMMENT [facility] Comment: EXPLANATORY NOTE: The Pap is [...] been evaluated with computer assisted technology. [facility] Cafeteria Counter Attendant : SEE COMMENT [facility] Comment: MSM, CT(ASCP) CT screening location: [place] [address] HPV nRNA E6/E7 Not Detected Not Detected [facility] Comment: Methodology: Fisher Spear-Mediated Amplification This assay detects E6/E7 viral messenger RNA (mRNA) from 14 high-risk HPV types (16,18,31,33,35,39,45,51,52,56,58,59,66,68). Cervical sources are required for HPV testing. If a vaginal source from a patient who has had a total hysterectomy with removal of cervix was submitted, please contact the testing laboratory for alternative testing options. For additional information, please refer to http://education.PaletteApp/faq/KVY121f6 (This link if provided for information/ educational [...] ORDERABLES Fin al Result Performing Organization Address [facility] Co de Phone Number [facility] * [...] ORDERABLES Final R esult Performing Organization Address [facility]/ZIP Co de Phone Number [facility] [address] [place] [address], * (ABNORMAL) LIPID PANEL, STANDARD (02/16/2022 4:17 PM EDT) [facility] Chol/HDLC Ratio 3.0 <5.0 (calc) [facility] Cholesterol, Total 130 <200 mg/dL [facility] HDL Cholesterol 44(L) > OR = 50 mg/dL [facility] LDL Cholesterol 66 mg/dL (calc) [facility] Comment: Reference range: <100 Desirable range <100 mg/dL for primary prevention; <70 mg/dL for patients with CHD or diabetic patients with > or = 2 CHD risk factors. LDL-C is now calculated using the Willian-Jennings calculation, which is a validated novel method providing better accuracy than the Friedewald equation in the estimation of LDL-C. Willian SS et al. DYLON. 2013;310(74): 1018-0829 (http://education.ITYZ/faq/FLB983) Non-HDL Cholesterol 86 <130 mg/dL (calc) [facility] Comment: For patients with diabetes plus 1 major ASCVD risk factor, treating to a non-HDL-C goal of <100 mg/dL (LDL-C of <70 mg/dL) is considered a therapeutic option. Triglycerides 118 <150 mg/dL [facility] 02/16/2022 4:17 PM EDT us Arsenio Frost MD LAB BLOOD ORDERABLES Final R esult [facility] [address] * HIV AB/AG (09/28/2019 3:36 PM EST) [facility] HIV AG/AB NONREACTIVE NR [facility] ON LAB [...] of detection of this assay. The Bang Instrument Worker HIV Ag/Ab Combo assay result and supplemental assay results should be interpreted in conjunction with the patient's clinical presentation, history and other laboratory results. If the results are inconsistent with clinical evidence, additional testing is suggested to confirm the result. 09/28/2019 3:36 PM EST us Arsenio Frost MD HISTORICAL/NON ORDERABLE LAB S Final Result [facility] [address] from Last 3 Months or Most Recently Relevant to Health Maintenance Insurance [facility] C3 HSN FULL PROGRESSIVE AUTO INSURANCE [place] STAND ADULT Care Teams College And Career Counselor Relationship Specialty Start Date End Date Sole Wilkinson MD [address] [place] [address] [place] [address] PCP - General Family Medicine 10/19/22 Tasha Mantilla Swaging Machine OperatorMethane Gas Collection System Operator 02/04/24
--- OUTSIDE RECORDS SUMMARY | 2025-06-12 18:29 | XMS_ITS | Encounter Summary ---
Author Organization [employer] Address [address] [facility] 7t [place] [address] Care Team Providers Care Food And Beverage Service Manager Name Role Phone Sole Wilkinson MD Primary Care Provider [phone] Reason for Visit * Reason Comments Med Refill Encounter Details Date Type Department Care Team ([facility] st Contact Info) Description 12/27/2023 Refill [facility] [address] [place] [address] Eliza Dave MD [address] [place] [address] Mild intermittent asthma with (acute) exacerbation Social [...] Description 06/26/2025 9:15 AM EDT Office Visit [facility] [address] [place] [address] Sole Wilkinson MD [address] [place] [address] 10/26/2025 10:30 AM EST Office Visit [facility] [address] [place] [address] Yonathan, [place], OD [address] [place] [address] documented as of this encounter Visit Diagnoses Diagnosis Mild intermittent asthma with (acute) exacerbation documented in this encounter Additional Health Concerns Assessment Noted Time PHQ-9 Depression Total Score: 25 024 1:58 PM EDT documented as of this encounter Care Teams Food And Beverage Service Manager Relationship Specialty Start Date End Date Sole Wilkinson MD [address] [place] [address] PCP - General Family Medicine 10/19/22 Tasha Mantilla Solar Sales ConsultantYouth Program Director 02/04/24 documented as of this encounter
--- OUTSIDE RECORDS SUMMARY | 2025-06-12 18:29 | XMS_ITS | Encounter Summary ---
Author Organization [employer] Address 75 [facility] 7t [place] [address] Care Team Providers Care Director Enterprise Data Architecture Name Role Phone Sole Wilkinson MD Primary Care Provider [phone] Reason for Visit * Reason Comments Med Refill Encounter Details Date Type Department Care Team ([facility] st Contact Info) Description 12/29/2024 Refill [facility] [address] [place] [address] Sole Wilkinson MD [address] [place] [address] Social History Tobacco Use Types Packs/Day Years [...] 9:15 AM EDT Office Visit [facility] [address] [place] [address] Sole Wilkinson MD [address] [place] [address] 10/26/2025 10:30 AM EST Office Visit [facility] [address] [place] [address] Yonathan, [place], OD [address] [place] [address] documented as of this encounter Visit Diagnoses Not on filedocumented in this encounter Additional Health Concerns Assessment Noted Time PHQ-9 Depression Total Score: 19 024 3:58 PM EST documented as of this encounter Care Teams Director Enterprise Data Architecture Relationship Specialty Start Date End Date Sole Wilkinson MD [address] [place] [address] PCP - General Family Medicine 10/19/22 Tasha Mantilla Internal Grinding Machine OperatorJoinery Patternmaker 02/04/24 documented as of this encounter
--- OUTSIDE RECORDS SUMMARY | 2025-06-12 18:29 | XMS_ITS | Clinical Summary ---
Author Organization [address] [facility] Address [address] [place] [address] Phone Care Team Providers Care Salesforce Administrator Name Role Phone Sole Wilkinson MD Primary Care Provider [phone] Allergies Active Allergy Reactions Criticality Noted Date Comments Metformin 02/13/2017 Hair loss Shrimp Swelling 02/13/2017 Theophylline Nausea And Vomiting,Rash 6 Medications albuterol HFA (PROAIR HFA ; PROVENTIL HFA ; VENTOLIN HFA) 90 mcg/actuation inhaler Inhale 2 puffs by mouth every 4 (four) hours if needed for wheezing. Cough 8 Active cetirizine (ZyrTEC) 10 mg tablet Take 1 tablet (10 mg total) by mouth 1 (one) time each day. 9 Active cholestyramine (QUESTRAN) 4 gram packet Take 1 packet (4 g total) by mouth 1 (one) time each day in the morning. 9 Active flash glucose scanning reader (FreeStyle Matthew 2 [place]) misc 3 (three) times a day. Test sugars 8 Active flash glucose sensor (FreeStyle Matthew 14 Day Sensor) kit 1 applicator by Not Applicable route 1 (one) time each day. 8 Active fluticasone propionate (FLONASE) 50 mcg/actuation nasal spray Administer 2 sprays into each nostril 1 (one) time each day. 8 Active FREESTYLE LANCETS MISC 1 (one) time each day. with jaja 6 Active glipiZIDE (GLUCOTROL) 10 mg tablet Take 1 tablet (10 mg total) by mouth 2 (two) times a day before meals. 9 Active acetaminophen (TYLENOL) 500 mg tablet Take 1 tablet (500 mg total) by mouth 3 (three) times a day. 9 Active pantoprazole (PROTONIX) 20 mg EC tablet Take 1 tablet (20 mg total) by mouth 1 (one) time each day in the morning. 9 Active PARoxetine (PAXIL) 20 mg tablet Take 1 tablet (20 mg total) by mouth 1 (one) time each day in the morning. 9 Active polyethylene glycol (COLYTE) 240-22.72-6.72 -5.84 gram solution Drink 8 oz every 15 mins over 2 sittings as directed. Finish the entire jug. 9 Active Active Problems Problem Noted Date Diagnosed Date Chronic nonintractable headache 05/09/2019 Anxiety 09/19/2018 Bilateral back pain 09/19/2018 Elevated blood pressure reading 09/19/2018 Hepatic steatosis 06/29/2018 Renal cyst, right 06/29/2018 Adjustment disorder with depressed mood 07/05/20 17 Obsessive-compulsive disorder 07/05/2017 Panic disorder 07/05/2017 PTSD (post-traumatic stress disorder) 07/05/2017 Severe obesity with body mas s index (BMI) of 35.0 to 39.9 with serious comorbidity ([facility] V24, [facility] V28) 07/20/2016 Type 2 diabetes mellitus ([facility] V24, [facility] V 28) 05/08/2016 Overview (09/29/2024): Diabetes mellitus type 2, uncontrolled Allergic rhinitis 09/05/2015 Varicosities of leg 09/05/2015 Asthma 07/19/2015 Carpal tunnel syndrome of right wrist 07/19/2015 Gastroesophageal reflux disease without esophagi tis 07/19/2015 Immunizations Immunization Administration Dates Next Due Pneumococcal polysaccharide 23 valent (Pneumovax 23) 2yo and older 08/05/2015 Tdap Tetanus diptheria acell ular pertussis (Boostrix; Adacel) 7yo and older 03/11/2019 Surgical History Surgery Date Site/Laterality Comments APPENDECTOMY PROCEDURE: HISTORICAL APPENDECTOMY CHOLECYSTECTOMY 05/2017 PROCEDURE: HISTORICAL CHOLECYSTECTOMY Medical History Medical History Date Comments Allergic rhinitis 09/05/2015 DX:Allergic rh initis Varicose veins 09/05/2015 DX:Varicose vein s Diabetes type 2, uncontrolled DX :Diabetes type 2, uncontrolled Obesity DX:Obesity Tobacco abuse DX:Tobacco abuse Family History Medical History Relation Name Comments Diabetes Maternal Grandfather Diabetes Maternal Grandmother brain t umor Diabetes Mother IN Diabetes Paternal Grandmother breast cancer Colon cancer Neg Hx Crohn's disease Neg Hx Esophageal cancer Neg Hx Stomach cancer Neg Hx Ulcerative colitis Neg Hx Relation Name Status Comments Father Alive Maternal Grandfather Maternal Grandmother Mother Alive Paternal Grandmother Social History Tobacco Use Types Packs/Day Years Used Date Smoking Tobacco: Every Day Cigarettes Smokeless Tobacco: Never Alcohol Use Standard Drinks/Week Comments Yes 0 (1 standard drink = 0.6 oz pur e alcohol) Comments Unknown Sex and Gender Information Value Date Recorded Sex Assigned at Not on file Legal Sex Female 7:09 AM EST Gender Identity Not on file Sexual Orientation Not on file Obstetrics History Plan of Treatment Health Maintenance Due Date Last Done Comments Breast Cancer Screening 1979 Colorectal Cancer Screening: Colonoscopy 1979 COVID-19 Vaccine (#1) 11/13/1984 Diabetes: Annual Foot Exam 11/13/1989 Diabetes: Annual Retina Eye Exam 11/13/1989 Hepatitis B Vaccines (1 of 3 - 19+ 3-dose series) 11/13/1998 HPV Vaccines (1 - 3-dose SCD M series) 11/13/2006 Pneumococcal Vaccine: Pediat rics (0 to 5 Years) and At-Risk Patients (6 to 49 Years) (2 of 2 - PCV) 08/05/2016 08/05/2015 Cervical Cancer Screening: P ap Smear 05/21/2019 05/21/2016 Diabetes: Annual GFR (Glomer ular Filtration Rate) 06/12/2020 06/12/2019 Cholesterol Screening (Lipid Panel) 06/22/2024 06/27/2018 Diabetes: Annual Urine Albumin-Creatinine Ratio (uACR) 06/22/2024 09/16/2018 Diabetes: Blood Sugar Contro l Test (HGBA1C) 06/22/2024 04/06/2019 HIV Screening 06/22/2024 Hepatitis C Screening 06/22/2024 Social Influencers of Health Screening 06/22/2024 Depression Screening 09/13/2024 Influenza Vaccine (#1) 2025 DTaP,Tdap,and Td Vaccines (2 - Td or Tdap) 03/11/2029 03/11/2019 RSV Immunization Adult Patie nts (1 - 1-dose 75+ series) 11/13/2054 HIB Vaccines Aged Out No longer eligi ble based on patient's age to complete this topic Hepatitis A Vaccines Aged Out No long er eligible based on patient's age to complete this topic IPV Vaccines Aged Out No longer eligi ble based on patient's age to complete this topic MMR Vaccines Aged Out No longer eligi ble based on patient's age to complete this topic Meningococcal ACWY Vaccine Aged Out N o longer eligible based on patient's age to complete this topic Meningococcal B Vaccine Aged Out No l onger eligible based on patient's age to complete this topic RSV Immunization Patients Un rubi 20 months Aged Out No longer eligible b ased on patient's age to complete this topic Varicella Vaccines Aged Out No longer eligible based on patient's age to complete this topic Procedures Procedure Name Priority Date/Time Associated Diagnosis Comments ANNUAL BMP BLOOD TEST Routine 06/12/2019 HEMOGLOBIN A1C Routine 04/06/2019 URINE ALBUMIN CREATININE RATIO Routine 09/16/2018 LIPID PANEL Routine 06/27/2018 PAP SMEAR Routine 05/21/2016 from Last 3 Months or Most Recently Relevant to Health Maintenance Results * Annual BMP Blood Test (06/12/2019) Pathologist [facility] Annual BMP Blood Test abstracted Historical Provider HEALTH MAINTENANCE Final Result * (ABNORMAL) Hemoglobin A1c (04/06/2019) Hemoglobin A1C 10.2(A) <=6.5 % Blood Venous blood specimen / Unknown Historical Provider LAB BLOOD ORDERABLES Karena l Result * Urine Albumin Creatinine Ratio (09/16/2018) Pathologist [facility] Urine Albumin Creatinine Ratio abstracted Historical Provider HEALTH MAINTENANCE Final Result * Lipid panel (06/27/2018) LDL/HDL Ratio 2 0 - 4 Triglycerides 52 0 - 150 mg/dL Cholesterol 107 0 - 200 mg/dL HDL 46 >=40 mg/dL LDL Cholesterol 51 0 - 100 mg/dL Blood Venous blood specimen / Unknown Historical Provider LAB BLOOD ORDERABLES Karena l Result * Pap Smear (05/21/2016) HM Pap smear no interpretation , abstracted Historical Provider HEALTH MAINTENANCE Final Result from Last 3 Months or Most Recently Relevant to Health Maintenance Insurance [place]ICAID - [place] Care Teams Salesforce Administrator Relationship Specialty Start Date End Date Sole Wilkinson MD [address] [place] [address] PCP - General Silk Screen Printer 09/14/24
--- OUTSIDE RECORDS SUMMARY | 2025-06-12 18:29 | XMS_ITS | Encounter Summary ---
Author Organization [employer] Address [address] [place] [address] Care Team Providers Care Computer Field Technician Name Role Phone Sole Wilkinson MD Primary Care Provider [phone] Reason for Visit * Reason Onset Date Comments Med Refill 03/09/2024 Encounter Details Date Type Department Care Team (Late st Contact Info) Description 03/09/2024 Refill [facility] [address] [place] [address] Radha Moore FNP Mild intermittent asthma with [...] Description 06/26/2025 9:15 AM EDT Office Visit [facility] [address] [place] [address] Sole Wilkinson MD [address] [place] [address] 10/26/2025 10:30 AM EST Office Visit [facility] [address] [place] [address] Yonathan, [place], OD [address] [place] [address] documented as of this encounter Visit Diagnoses Diagnosis Mild intermittent asthma with (acute) exacerbation documented in this encounter Additional Health Concerns Assessment Noted Time PHQ-9 Depression Total Score: 22 024 10:09 AM EDT documented as of this encounter Care Teams Computer Field Technician Relationship Specialty Start Date End Date Sole Wilkinson MD [address] [place] [address] PCP - General Family Medicine 10/19/22 Tasha Mantilla Exercise PlannerStreet Light Cleaner 02/04/24 documented as of this encounter
--- OUTSIDE RECORDS SUMMARY | 2025-06-12 18:29 | XMS_ITS | Encounter Summary ---
Author Organization [employer] Address [address] [facility] [address] [place] [address] Care Team Providers Care Reconciler Name Role Phone Sole Wilkinson MD Primary Care Provider [phone] Reason for Visit * Reason Onset Date Comments NTTS 06/07/2025 Encounter Details Date Type Department Care Team (Late st Contact Info) Description 06/07/2025 Telephone [facility] [address] [place], [place] [phone] Sole Wilkinson MD [address] [place], [place] [phone] NTTS Social History Tobacco Use Types Packs/Day Years [...] encounter Miscellaneous Notes * Telephone Encounter - Sherin Dinh RN - 06/07/2025 11:23 AM EDT RN received NTTS from 06/07/25 stating: I was being treated for UTI but the symptoms have returned. Caller stated she finished antibioticsfor UTI on 06/01/25. Onset the next day of pain with urination. Called the office and missed the call back. Declines triage. Knows she still has a UTI and is calling for another antibiotics to be called in. NTTS's advised patient to return call to clinic >8:30am. Upon chart review, red team RN spoke to patient regarding above concern this AM at 10:29am: TC x2 placed to patient [phone] regarding below message. Patient informed this RN that she ishaving recurring UTI's symptoms. Patient was last seen on 05/24/25 for UTI symptoms and was placed on antibiotics. Patient reported that she is still experiencing UTI symptoms even after finishing thecourse of antibiotics. RN advised patient to go to the [facility] [place] for further evaluation. Patient reported she will go on Wednesday06[facility]08/25 [facility]. RN advised patient of Days and times of the Walk in Center. Pt verbalized understanding. PT to F/U PRN. No further f/u needed at this time. Patient to f/u PRN. documented in this encounter Plan of Treatment Upcoming Encounters Date Type Department Care Team (Late st Contact Info) Description 06/26/2025 9:15 AM EDT Office Visit [facility] [address] [place] [address] Sole Wilkinson MD [address] [place] [address] 10/26/2025 10:30 AM EST Office Visit [facility] [address] [place] [address] Yonathan, [place], OD [address] [place] [address] documented as of this encounter Visit Diagnoses Not on filedocumented in this encounter Additional Health Concerns Assessment Noted Time PHQ-9 Depression Total Score: 23 025 12:18 PM EDT documented as of this encounter Care Teams Reconciler Relationship Specialty Start Date End Date Sole Wilkinson MD [address] [place], [place] [phone] PCP - General Family Medicine 10/19/22 Tasha Mantilla Beef GraderWood Turner 02/04/24 documented as of this encounter
--- OUTSIDE RECORDS SUMMARY | 2025-06-12 18:29 | XMS_ITS | Encounter Summary ---
Author Organization [employer] Address [address] [facility] [address] [place] [address] Care Team Providers Care Bmx Rider Name Role Phone Sole Wilkinson MD Primary Care Provider [phone] Reason for Visit * Reason Onset Date Comments Nurse Triage 09/28/2023 Encounter Details Date Type Department Care Team ([facility] st Contact Info) Description 09/28/2023 Telephone [facility] [address] [place], [place] [phone] Sole Wilkinson MD [address] [place], [place] [phone] Nurse Triage Social History Tobacco Use Types [...] pain and headache. Pt did go to [facility] ED 09/23/23 and was seen. Hospital report [...] tylenol as prescribed. Pt has Claim # [id number]. Apt with SUJATHA Garcia [address] 10/07/23. Home [...] accepted this outcome Please contact pt @ [phone] documented in this encounter Plan of Treatment Upcoming Encounters Date Type Department Care Team (Late st Contact Info) Description 06/26/2025 9:15 AM EDT Office Visit [facility] [address] [place] [address] Sole Wilkinson MD [address] [place] [address] 10/26/2025 10:30 AM EST Office Visit [facility] [address] [place] [address] Helena Mcmanus OD [address] [place] [address] documented as of this encounter Visit Diagnoses Not on filedocumented in this encounter Additional Health Concerns Assessment Noted Time PHQ-9 Depression Total Score: 19 023 2:06 PM EDT documented as of this encounter Care Teams Bmx Rider Relationship Specialty Start Date End Date Sole Wilkinson MD [address] [place] [address] PCP - General Family Medicine 10/19/22 Tasha Mantilla Addressing Machine OperatorEnd Finder Twisting Department 02/04/24 documented as of this encounter
--- OUTSIDE RECORDS SUMMARY | 2025-06-12 18:29 | XMS_ITS | Encounter Summary ---
Author Organization [employer] Address [address] [facility] [address] [place] [address] Care Team Providers Care Director Business Development Name Role Phone Sole Wilkinson MD Primary Care Provider [phone] Reason for Visit * Reason Onset Date Comments Nurse Triage 05/21/2025 Encounter Details Date Type Department Care Team (Late st Contact Info) Description 05/21/2025 Telephone [facility] [address] [place], [place] [phone] Sole Wilkinson MD [address] [place], [place] [phone] Nurse Triage Social History Tobacco Use Types [...] higher acuity questions Please contact pt at [phone]. documented in this encounter Plan of Treatment Upcoming Encounters Date Type Department Care Team (Late st Contact Info) Description 06/26/2025 9:15 AM EDT Office Visit [facility] [address] [place] [address] Sole Wilkinson MD [address] [place] [address] 10/26/2025 10:30 AM EST Office Visit [facility] [address] [place], [place] [phone] Yonathan, [place], OD [address] [place] [address] documented as of this encounter Visit Diagnoses Not on filedocumented in this encounter Additional Health Concerns Assessment Noted Time PHQ-9 Depression Total Score: 19 024 3:58 PM EST documented as of this encounter Care Teams Director Business Development Relationship Specialty Start Date End Date Sole Wilkinson MD [address] [place], [place] [phone] PCP - General Family Medicine 10/19/22 Tasha Mantilla Winch OperatorDetective Precinct 02/04/24 documented as of this encounter
[2025-06-12 18:42] LABS: Appearance Urine Clear; Glucose Urine UA Negative (Negative); PH 6.0 (5.0-9.0); Specific Gravity - Urine 1.010 (1.005-1.025); UMIC TRIGGER UACC YES
[2025-06-12 18:45] LABS: UACC Culture Trigger YES
[2025-06-13 11:42] LABS: CT PCR NOT DETECTED (Not Detect.); NG PCR NOT DETECTED (Not Detect.)
== END 2025-06-12 18:26 | disposition home or self-care (01) ==
LOC: HO.HHCLNP 18:25
PROVIDERS: Visit Provider Family Medicine
DX: R30.0 Dysuria (principal); Z20.2 Contact with and (suspected) exposure to infections with a predominantly sexual mode of transmission
CPT/HCPCS: 81001; 87086; 87491; 87591

== ENCOUNTER 2025-06-27 13:03 | Outpatient (REF) | payer MEDICAID, SELFPAY ==
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
[2025-06-27 16:15] LABS: Appearance Urine Cloudy; Glucose Urine UA 100 mg/dL (Negative); PH 6.0 (5.0-9.0); Specific Gravity - Urine 1.020 (1.005-1.025); UMIC TRIGGER UACC YES
[2025-06-27 16:30] LABS: Alanine Aminotransferase 19 U/L (0-31); Albumin Level 4.5 g/dL (3.5-5.0); Alkaline Phosphatase 68 U/L (39-117); Anion Gap 13 (12-20); Aspartate Amino Transferase 24 U/L (5-31); Blood Urea Nitrogen 11 mg/dL (9-16); Calcium 9.3 mg/dL (8.4-10.2); Carbon Dioxide 24 mmol/L (22-29); Chloride 107 mmol/L (96-108); Cholesterol 151 mg/dL (<200); Estimated Glomerular Filt Rate > 60; HDL Cholesterol 49 mg/dL (>40); Potassium 3.3 mmol/L (3.3-5.1); Sodium 141 mmol/L (135-145); Total Protein 7.6 g/dL (6.5-8.0); Triglycerides 93 mg/dL (<150)
--- OUTSIDE RECORDS SUMMARY | 2025-06-27 16:47 | XMS_ITS | Encounter Summary ---
Author Organization [employer] Address [address] [facility] [address] [place] [address] Care Team Providers Care Research And Development Chemist Name Role Phone Sole Wilkinson MD Primary Care Provider [phone] Reason for Visit * Reason Onset Date Comments Nurse Triage 09/28/2023 Encounter Details Date Type Department Care Team ([facility] st Contact Info) Description 09/28/[address] [facility] MEDICINE [address] [place], [place] [phone] Sole Wilkinson MD [address] [place], [place] [phone] Nurse Triage Social History Tobacco Use Types [...] pain and headache. Pt did go to [facility] ED 09/23/23 and was seen. Hospital report [...] tylenol as prescribed. Pt has Claim # [id number]. Apt with SUJATHA Garcia [address] 10/07/23. Home [...] accepted this outcome Please contact pt @ [phone] documented in this encounter Plan of Treatment Upcoming Encounters Date Type Department Care Team (Late st Contact Info) Description 07/04/2025 2:00 PM EDT Medication Management [facility] MEDICINE [address] [place] [address] Mercedes Bhatia, PharmD [address] [place] [address] 10/26/2025 10:30 AM EST Office Visit [facility] OPTOMETRY [address] [place] [address] Helena Mcmanus, OD [address] [place] [address] documented as of this encounter Visit Diagnoses Not on filedocumented in this encounter Additional Health Concerns Assessment Noted Time PHQ-9 Depression Total Score: 19 023 2:06 PM EDT documented as of this encounter Care Teams Research And Development Chemist Relationship Specialty Start Date End Date Sole Wilkinson MD [address] [place] [address] PCP - General Family Medicine 10/19/22 Tasha Mantilla Filing And Polishing SupervisorCredit Underwriter 02/04/24 documented as of this encounter
--- OUTSIDE RECORDS SUMMARY | 2025-06-27 16:47 | XMS_ITS | Encounter Summary ---
Author Organization [employer] Address [address] [facility] [address] [place] [address] Care Team Providers Care Billing Supervisor Name Role Phone Sole Wilkinson MD Primary Care Provider [phone] Reason for Visit * Reason Comments Med Refill Encounter Details Date Type Department Care Team ([facility] st Contact Info) Description 12/29/2024 Refill [facility] MEDICINE [address] [place] [address] Sole Wilkinson MD [address] [place] [address] Social History Tobacco Use Types Packs/Day Years [...] Description 07/04/2025 2:00 PM EDT Medication Management [facility] MEDICINE [address] [place] [address] Mercedes Bhatia, PharmD [address] [place] [address] 10/26/2025 10:30 AM EST Office Visit [facility] OPTOMETRY [address] [place] [address] Yonathan, Helena, OD [address] [place] [address] documented as of this encounter Visit Diagnoses Not on filedocumented in this encounter Additional Health Concerns Assessment Noted Time PHQ-9 Depression Total Score: 19 024 3:58 PM EST documented as of this encounter Care Teams Billing Supervisor Relationship Specialty Start Date End Date Sole Wilkinson MD [address] [place] [address] PCP - General Family Medicine 10/19/22 Tasha Mantilla Clothing SupervisorArchitectural Renderer 02/04/24 documented as of this encounter
--- OUTSIDE RECORDS SUMMARY | 2025-06-27 16:47 | XMS_ITS | Clinical Summary ---
Author Organization [employer] Address [address] [place] [address] [address] [place] [address] Care Team Providers Care Surveillance System Monitor Name Role Phone Sole Wilkinson MD Primary Care Provider [phone] Allergies Active Allergy Reactions Criticality Noted Date Comments Cephalexin 05/17/2023 Referred to client care specialist to clarify if allergy to doxycycline vs cephalexin ? Doxycycline 05/17/2023 Referred to client care specialist to clarify if allergy to doxycycline vs [...] USE TO CHECK BLOOD PRESSURE 022 Active albuterol (2.5 MG/3ML) 0.083% nebulizer solutionIndicat ions:Mild intermittent asthma with (acute) exacerbation INHALE 1 AMPULE USING A NEBULIZER THREE TIMES DAILY 75 mL 024 Active Alcohol Swabs padsIndications :Diabetic peripheral neuropathy associated with type 2 diabetes mellitus (HCC) 1 Swab. 3 times daily. Use to test blood sugar three times daily 100 each 024 Active FREESTYLE LITE test stripIndication s:Diabetic peripheral neuropathy associated with type 2 diabetes mellitus ([facility]) TEST BLOOD SUGAR 3 TIMES A DAY 100 each 11 024 Active Blood Glucose Monitoring Suppl (Zee LearnStyle [place] Lite) w/Device kit Use to test blood sugar 3 times daily 1 kit 024 Active cetirizine (ZyrTEC) 10 MG tablet TAKE 1 TABLET BY MOUTH EVERYDAY AT NOON 90 tablet 3 024 Active TRUEplus Lancets 33G miscIndications :Type 2 diabetes mellitus with diabetic polyneuropathy, without long-term current use of insulin ([facility]) TEST BLOOD SUGAR THREE TIMES DAILY 100 each 11 024 Active cyclobenzaprine (Flexeril) 5 MG tablet Take 1 tablet by mouth every 6 (six) hours during the day. 024 Active glipiZIDE (Glucotrol) 5 MG tablet TAKE [...] episode of recurrent major depressive disorder (CMS/HCC) ([facility]),PTSD (post-traumatic stress disorder) Take 1 tablet (40 mg) by mouth in the evening. 30 tablet 1 025 Active propranolol (Inderal) 10 MG tabletIndicatio [...] USING PATCH* 30 patch 3 025 Active buPROPion SR (Wellbutrin SR) 100 MG 12 hr tabletIndicatio ns:Panic disorder Take 100 mg by mouth in the morning. 025 Active melatonin tabletIndicatio ns:Panic disorder Take 3 mg by mouth if needed at bedtime. 025 Active busPIRone (Buspar) 15 MG tabletIndicatio ns:Panic disorder Take 1 tablet by mouth 2 times daily. 025 Active Trulicity 4.5 MG/0.5ML solution auto-injectorIn dications:Type 2 diabetes mellitus with diabetic polyneuropathy, without long-term current use of insulin ([facility]) INJECT ONE PEN (= 4.5MG) SUBCUTANEOUSLY ONCE A WEEK DIRECTED 025 Active ondansetron (Zofran) 8 MG tabletIndicatio ns:Type 2 diabetes mellitus with diabetic polyneuropathy, without long-term current use of insulin ([facility]) Take 1 tablet (8 mg) by mouth every 8 (eight) hours if needed for nausea. 30 tablet 1 025 Active lidocaine (Lidoderm) 5 % patch APPLY 1 PATCH TOPICALLY TO SKIN, LEAVE ON FOR 12 HOURS AND OFF FOR 12 HOURS DIRECTED 30 patch 5 024 2024 Discontinued(T herapy completed) cyclobenzaprine (Flexeril) 10 MG tabletIndicatio ns:Acute bilateral low back pain with right-sided sciatica Take 1 tablet (10 mg) by mouth at bedtime for 10 days. 10 tablet 2024 Discontinued(T herapy completed) lidocaine (Xylocaine) 2 % solution APPLY 10mls TOPICALLY TO MOUTH SORES THREE TIMES DAILY WITH MEALS NEEDED FOR PAIN (SWISH AND SPIT OUT) 2024 Discontinued(T herapy completed) Trulicity 4.5 MG/0.5ML solution pen-injectorInd ications:Type 2 diabetes mellitus with other specified complication, unspecified whether intermediate insulin use (HCC) INJECT ONE PEN (= 4.5MG) SUBCUTANEOUSLY ONCE A WEEK DIRECTED 2 mL 5 2024 Discontinued(D ose adjustment) SUMAtriptan (Imitrex) 25 MG tablet Take 1 tablet (25 mg) by mouth 1 (one) time if needed for migraine for up to 9 doses. May repeat dose once in 2 hours if no relief. Do not exceed 2 doses in 24 hours. 9 tablet 024 2024 Discontinued(T herapy completed) azithromycin (Zithromax Z-Gabriel) 250 MG tabletIndicatio ns:Intermittent asthma with acute exacerbation, unspecified asthma severity Take 2 tabs po x 1 day then 1 tab po daily x 4 days 6 tablet 2024 Discontinued(T herapy completed) busPIRone (Buspar) 10 MG tabletIndicatio ns:Generalized anxiety disorder Take 1 tablet (10 mg) by mouth 2 times daily. 60 tablet 2024 Discontinued(T herapy completed) nitrofurantoin, macrocrystal-mo nohydrate, (Macrobid) 100 MG capsuleIndicati ons:UTI symptoms Take 1 capsule (100 mg) by mouth 2 times daily for 7 days. 14 capsule 2024 sulfamethoxazol e-trimethoprim (Bactrim DS) 800-160 MG tabletIndicatio ns:Urinary Tract Infection Take 1 tablet by mouth 2 times daily for 3 days. 6 tablet 025 2024 phenazopyridine (Pyridium) 100 MG tabletIndicatio ns:Dysuria Take 1 tablet (100 mg) by mouth if needed in the morning and at bedtime for bladder spasms. 4 tablet 025 2024 Discontinued(T herapy completed) cholestyramine (Questran) 4 g packet Take 4 g by mouth in the morning. 019 2024 Discontinued(T herapy completed) ondansetron (Zofran) 8 MG tablet Take 8 mg by mouth every 8 (eight) hours if needed. 024 2024 Discontinued(R eorder (will not trigger notification to Pharmacy)) Active Problems Problem Noted Date Diagnosed Date [...] 4:56 PM EDT): Will have surgery at [facility] with Dr Forbes to address this [...] -will stop doxy and cephalexin -referred to client care specialist to clarify if actual ATB allergy -benadryl [...] On Paxil 40mg Bilateral back pain 09/19/2018 Anxiety 09/19/2018 Hepatic steatosis 06/29/2018 Renal cyst, right 06/29/2018 Obsessive-compulsive disorder 07/05/2017 Panic disorder 07/05/2017 PTSD (post-traumatic stress disorder) 07/05/2017 Class 1 obesity due to exces s calories with serious comorbidity and body mass index (BMI) of 32.0 to 32.9 in adult 07/20/2016 Tobacco abuse 05/16/2016 Type 2 diabetes mellitus, wi evangelista long-term current use of insulin 05/08/2016 Assessment [...] for ingrown toenails Eye Exam: 04/2024 at [facility], no ocular complications of DM2 Lipid panel: [...] organization. Date Type Department Care Team Description 06/27/2025 9:15 AM EDT Office Visit [address] [address] Sole Wilkinson MD Type 2 diabetes mellitus with diabetic polyneuropathy, [...] acts; PTSD (post-traumatic stress disorder); Panic disorder 06/27/2025 Travel 06/25/[address] [phone] Sole Wilkinsno MD Chart Prep 06/14/2025 Results Follow-Up [facility] [address] [place] [phone] Jenelle Duque MD Culture, Urine, Routine 06/12/2025 1:40 PM EDT Office Visit [facility] [address] [address] Jenelle Duque MD Dysuria (Primary Dx); Routine screening for STI (sexually transmitted infection); Primary hypertension 06/12/2025 Orders Only [address] [address] Jenelle Duque MD 06/12/[address] [address] Sole Wilkinson MD 06/07/[address] [address] Sole Wilkinson MD NTTS 06/06/[address] [address] Sole Wilkinson MD Med Refill 05/28/2025 Patient Outreach [address] [address] Sole Wilkinson MD Care Coordination ([facility] outreach for [facility] housing search-referral completed ) 05/24/2025 11:15 AM EDT Office Visit [address] [address] Eliza Betancourt MD UTI symptoms (Primary Dx); Type 2 diabetes mellitus with diabetic polyneuropathy, without long-term current use of insulin ([facility]); Gastroesophageal reflux disease, unspecified whether esophagitis present; Essential (primary) hypertension 05/24/2025 Travel 05/24/2025 Refill [facility] [address] [place] [phone] Sole Wilkinson MD 05/23/[address] [address] Sole Wilkinson MD Chart Prep 05/21/[address] [address] Sole Wilkinson MD Nurse Triage 05/21/2025 Telephone [facility] [address] [facility] [place] [phone] Sole Wilkinson MD 05/08/2025 Orders Only [facility] [address] [place] [address] Rubi Pinzon MD Type 2 diabetes mellitus, without long-term current use of insulin ([facility]) (Primary Dx) from Last 3 Months Immunizations Immunization Administration [...] F) 06/27/2025 9:39 AM EDT Respiratory Rate 16 06/12/2025 1:45 PM EDT Oxygen Saturation 99% 06/12/2025 1:45 PM EDT Inhaled Oxygen Concentration - - Weight 89.1 kg (196 lb 6.4 oz) 06/27/2025 9:39 A M EDT Height 162.6 cm (5' 4 ) 06/27/2025 9:39 AM EDT Body Mass Index 33.71 06/27/2025 9:39 AM EDT Plan of Treatment Upcoming Encounters Date Type Department Care Team (Late st Contact Info) Description 07/04/2025 2:00 PM EDT Medication Management [facility] [address] [place] [address] Mercedes Bhatia, PharmD [address] [place] [address] 10/26/2025 10:30 AM EST Office Visit [facility] [address] [place] [address] Helena Mcmanus, OD [address] [place] [address] Health Maintenance Due Date Last Done Comments [...] 08/05/2015 Diabetes: Urine Protein Screening 02/16/2023 02/16/2022 Dental Oral Exam 11/06/2024 05/05/2024 Dental Prophylaxis 2024 05/16/2024 Mammogram 11/23/2024 11/24/2023, 1210/2021, 08/14/2022, Additional history exists Dental X-Ray: Bitewings 05/06/2025 05/05/2024, 03/02 COVID-19 Vaccine ( season) 2025 Influenza Vaccine (#1) 2025 Pap Smear 07/20/2025 07/20/2022 Diabetes: Foot Exam 09/07/2025 09/07/2024, 09/07/2024, 09/07/2024, Additional history exists Diabetes: Hemoglobin A1C 09/27/2025 025, 05/24/2025, 09/07/2024, Additional history exists Depression Monitoring 11/21/2025 05/24/2025, 025 Eye Exam 02/15/2026 02/16/2024, 0601/2024, 02/16/2024, Additional history exists Disability Screening 05/24/2026 05/24/2025 SDOH Screening 05/24/2026 05/24/2025 Lipid Panel 06/27/2026 06/27/2025, 02/16/2022 Tobacco Screening 06/27/2026 06/27/2025 Dental X-Ray: Full Mouth 05/06/2027 05/05/2024, 08/09/2023 Cervical Cancer Screening 07/20/2027 HPV/Cotest 07/20/2027 07/20/2022 [...] Procedure Name Priority Date/Time Associated Diagnosis Comments COMPREHENSIVE METABOLIC PANEL Routine 06/27/2025 1:06 PM EDT Type 2 diabetes mellitus with diabetic polyneuropathy, without long-term current use of insulin ([facility]) LIPID PANEL, STANDARD Routine 06/27/2025 1:06 PM EDT Type 2 diabetes mellitus with diabetic polyneuropathy, without long-term current use of insulin ([facility]) URINALYSIS, COMPLETE, WITH REFLEX TO CULTURE Routine 06/27/2025 1:06 PM EDT Dysuria POCT GLYCATED HEMOGLOBIN, TOTAL Routine 06/27/2025 9:51 AM EDT Type 2 diabetes mellitus with diabetic polyneuropathy, without long-term current use of insulin ([facility]) POCT GLUCOSE Routine 06/27/2025 9:41 AM EDT Type 2 diabetes mellitus with diabetic polyneuropathy, without long-term current use of insulin ([facility]) URINALYSIS, COMPLETE, WITH REFLEX TO CULTURE Routine 06/12/2025 2:08 PM EDT Dysuria CHLAMYDIA/N. GONORRHOEAE RNA, TMA, UROGENITAL Routine 06/12/2025 2:07 PM EDT Routine screening for STI (sexually transmitted infection) POCT URINALYSIS DIPSTICK Routine 06/12/2025 2:01 PM EDT Dysuria CULTURE, URINE, ROUTINE Routine 06/12/2025 12:00 AM EDT CULTURE, URINE, ROUTINE Routine 05/24/2025 12:14 PM EDT UTI symptoms POCT URINALYSIS DIPSTICK Routine 05/24/2025 12:10 PM EDT UTI symptoms POCT GLYCATED HEMOGLOBIN, TOTAL Routine 05/24/2025 11:43 AM EDT Type 2 diabetes mellitus with diabetic polyneuropathy, without long-term current use of insulin ([facility]) POCT GLUCOSE Routine 05/24/2025 11:40 AM EDT Type 2 diabetes mellitus with diabetic polyneuropathy, without long-term current use of insulin ([facility]) Full PROPHYLAXIS - ADULT Routine [...] URINE W/CREATININE Routine 02/16/2022 4:17 PM EDT ZZZ HISTORICAL HIV AB/AG Routine 09/28/2019 3:36 PM EST from Last 3 Months or Most Recently Relevant to Health Maintenance Results * (ABNORMAL) Urinalysis, Complete, with Reflex to Culture (06/27/2025 1:06 PM EDT) Only the most recent of2 resultswithin the time period is included. Color Urine DK YELLOW [facility] Appearance Urine Cloudy [facility] PH 6.0 5.0 - 9.0 [facility] Glucose Urine UA 100(A) Negative mg/dL [facility] Urine Blood Trace Negative [facility] Specific [place] - Urine 1.020 1.005 - 1.025 [facility] Urine Protein Trace Neg-Trace mg/dL [facility] Urine Ketones Trace Negative mg/dL [facility] Nitrite Urine Negative Negative [facility] Leukocyte Esterase Urine Negative Negative [facility] RBC Urine 0-2 0 - 2 /HPF [facility] Urine WBC 0-5 0 - 5 /HPF [facility] Urine Squamous Epithelial Cell 0-2 0 - 2 /HPF [facility] Urine Bacteria None Seen None Seen [facility] Hyaline Casts, Urine 0-2 0 - 2 /LPF [facility] Urine 06/27/2025 1:06 PM EDT 06/27/2025 3:59 PM EDT Narrative [facility] - 06/27/2025 4:25 PM EDT Urine, Clean Catch us Jenelle Duque MD LAB URINE ORDERABLES Final Result [facility] [address] [place] [phone] * Lipid Panel, Standard (06/27/2025 1:06 PM EDT) Triglycerides 93 <150 mg/dL [facility] Comment:Desirable Triglyceri de: less than 150 mg/dLBorderline High Triglyceride 150-199 mg/dLHigh Triglyceride: 200-499 mg/dLVery High Triglyceride: greater than or equal to 5OO mg/dL Cholesterol 151 <200 mg/dL [facility] Comment:Desirable Cholestero l: less than 200 mg/dLBorderline High Cholesterol: 200-239 mg/dLHigh Cholesterol: greater than 239 mg/dL LDL Cholesterol Calculated 84 <100 mg/dL [facility] Comment:Desirable LDL: less than 100 mg/dLNear Optimal/Above Optimal LDL: 110- 129 mg/dLBorderline High LDL: 130-159 mg/dLHigh LDL: 160-189 mg/dLVery High LDL: greater than or equal to 190 mg/dL HDL Cholesterol 49 >40 mg/dL [facility] Comment:Desirable HDL: great er than 40 mg/dL Note: This HDL assay may give artificially low results in patients with liver disease. Blood Venous blood specimen / Unknown 06/27/2025 1:06 PM EDT 06/27/2025 3:50 PM EDT us Sole Wilkinson MD LAB BLOOD ORDERABLES Final Res ult [facility] [address] [place] [phone] * Comprehensive Metabolic Panel (06/27/2025 1:06 PM EDT) Sodium 141 135 - 145 mmol/L [facility] Potassium 3.3 3.3 - 5.1 mmol/L [facility] Chloride 107 96 - 108 mmol/L [facility] Carbon Dioxide 24 22 - 29 mmol/L [facility] Anion Gap 13 12 - 20 [facility] Urea Nitrogen (BUN) 11 9 - 16 mg/dL [facility] Creatinine, Serum 0.93 0.5 - 1.4 mg/dL [facility] Estimated Glomerular Filt Rate >60 [facility] Comment:Chronic Kidney Disea se: Estimated GFR < 60 mL/min/1.69z1Flqmtp Kidney Disease: Estimated GFR < 15 mL/min/1.73m2 Glucose 114 60 - 115 mg/dL [facility] Calcium 9.3 8.4 - 10.2 mg/dL [facility] Bilirubin, Total 0.4 0.0 - 1.0 mg/dL [facility] Aspartate Amino Transferase 24 5 - 31 U/L [facility] Alanine Aminotransferase 19 0 - 31 U/L [facility] Total Protein 7.6 6.5 - 8.0 g/dL [facility] Albumin Level 4.5 3.5 - 5.0 g/dL [facility] Alkaline Phosphatase 68 39 - 117 U/L [facility] Blood Venous blood specimen / Unknown 06/27/2025 1:06 PM EDT 06/27/2025 3:50 PM EDT Result [facility] us Sole Wilkinson MD LAB BLOOD ORDERABLES Final Res ult [facility] [address] [place] [phone] * (ABNORMAL) POCT Hgb A1c (06/27/2025 9:51 AM EDT) Only the most recent of2 resultswithin the time period is included. Hemoglobin A1C 7.5(A) 4.0 - 5.7 % QC Media Lot # [id number] Lot# Expiration Date 51 Blood 06/27/2025 9:51 AM EDT Sole Wilkinson MD POINT OF CARE TEST ENTER/EDIT ORDERABLES Final Result * POCT Glucose (06/27/2025 9:41 AM EDT) Only the most recent of2 resultswithin the time period is included. Glucose Blood, POC 166 60 - 200 mg/dL QC Media Lot # [id number] Lot# Expiration Date 31,126 Blood Capillary blood specimen / Unknown 06/27/2025 9:41 AM EDT Sole Wilkinson MD POINT OF CARE TEST ENTER/EDIT ORDERABLES Final Result * Chlamydia/N. Gonorrhoeae RNA, TMA, Vagina (06/12/2025 2:07 PM EDT) CT PCR NOT DETECTED Not Detect. [facility] Comment:A not detected test result does not exclude the possibilityof infection because test results can be affected byimproper specimen collection, concurrent antibiotic therapy,or the number of organisms in the specimen which may bebelow the sensitivity of the test. As with many diagnostictests, results from the Xpert CT/NG assay should beinterpreted in conjunction with other laboratory andclinical data available to the clinician.Xpert CT/NG performance has not been evaluated in patientsless than 14 years of age. The assay should not be used forthe evaluationof suspected sexual abuse or for other medico-legalindications. Additional testing is recommended in anycircumstance when false positive or false negative resultscould lead to adverse medical, social or psychologicalconsequences. NG PCR NOT DETECTED Not Detect. [facility] Comment:A not detected test result does not exclude the possibilityof infection because test results can be affected byimproper specimen collection, concurrent antibiotic therapy,or the number of organisms in the specimen which may bebelow the sensitivity of the test. As with many diagnostictests, results from the Xpert CT/NG assay should beinterpreted in conjunction with other laboratory andclinical data available to the clinician.Xpert CT/NG performance has not been evaluated in patientsless than 14 years of age. The assay should not be used forthe evaluationof suspected sexual abuse or for other medico-legalindications. Additional testing is recommended in anycircumstance when false positive or false negative resultscould lead to adverse medical, social or psychologicalconsequences. Swab Vaginal structure / Unknown 06/12/2025 2:07 PM EDT 06/12/2025 6:28 PM EDT us Jenelle Duque MD LAB MICROBIOLOGY - GENERAL ORDERABLES Final Result [facility] [address] [place] [phone] * (ABNORMAL) POCT urinalysis dipstick manually resulted [...] TEST ENTER/E DIT ORDERABLES Final Result * Culture, Urine, Routine (06/12/2025 12:00 AM EDT) Only the most recent of2 resultswithin the time period is included. Urine Urine specimen obtained by clean catch procedure / Unknown 06/12/2025 06/12/2025 Comment:UACC Narrative [facility] - 06/14/2025 11:27 AM EDT Urine Culture Report Result Urine Culture 10,000 to 50,000 cfu/ml Urine Culture Mixed bacterial amanda characteristic of Urine Culture urogenital contamination. Specimen Source: Urine clean catch Jenelle Duque MD LAB MICROBIOLOGY - GENERAL ORDERABLES Final Result [facility] [address] [place] [phone] * BI Mammogram Screening Tomosynthesis Bilateral (11/24/2023 12:15 PM EDT) Anatomical Region Laterality Modality Breast Bilateral Mammography 11/24/2023 12:1 5 PM EDT Narrative 11/29/2023 5:58 AM EDT [address] [place] [address] Mammography Report Signed Patient: Annette Beckham MR#: [id number] : 1980 Acct:[id number] Age/Sex: 43 / F ADM Date: 11/24/23 Loc: [facility] Attending Dr: Sole Wilkinson MD Ordering Physician: Sole Wilkinson Results: 1Negative Date of Service: 11/24/23 Follow Up: 1 Year From Orig inal Mammogram Procedure(s): MM tomosynthesis screening BI Accession Number(s): [id number] cc: Sole Wilkinson EXAMINATION: MM SCREENING DIGITAL [...] in OV> 11/29/23 0555 DD/ 1215 TD/TT: Investigator Narcotics: Procedure Note Donotuseinterpreter, Image - 11/29/2023 [place] [facility] [address] [place] [address] Mammography Report Signed Patient: Johnnie Beckham#: [id number] : 1980Acct:[id number] Age/Sex: 43 / FADM Date: 11/24/23 Loc: [facility] Attending Dr: Sole Wilkinson MD Ordering Physician: Elza Wilkinsonults: 1Negative Date of Service: 11/24/23Follow Up: 1 Year From Orig inal Mammogram Procedure(s): MM tomosynthesis screening BI Accession Number(s): [id number] cc: Sole Wilkinson EXAMINATION: MM SCREENING DIGITAL [...] in OV> 11/29/23 0555 DD/ 1215 TD/TT: Investigator Narcotics: Sole Wilkinson MD IMG BI PROCEDURES Final [...] been evaluated with computer assisted technology. [facility] Flight Deck Officer : SEE COMMENT [facility] Comment: MSM, CT(ASCP) CT screening location: [place] [id number] HPV nRNA E6/E7 Not Detected Not Detected [facility] Comment: Methodology: Metal Products Viewer-Mediated Amplification This assay detects E6/E7 viral messenger RNA (mRNA) from 14 high-risk HPV types (16,18,31,33,35,39,45,51,52,56,58,59,66,68). Cervical sources are required for HPV testing. If a vaginal source from a patient who has had a total hysterectomy with removal of cervix was submitted, please contact the testing laboratory for alternative testing options. For additional information, please refer to http://education.Hot Potato/faq/HHN491t5 (This link if provided for information/ educational [...] not provided 07/20/2022 10:2 4 AM EST us Arsenio Frost MD LAB PATHOLOGY ORDERABLES Fin al Result [facility] * (ABNORMAL) ALBUMIN, RANDOM [...] ORDERABLES Final R esult Performing Organization Address [facility] de Phone Number [facility] [address] * HIV AB/AG (09/28/2019 3:36 PM [...] of detection of this assay. The [employer] HIV Ag/Ab Combo assay result and supplemental assay results should be interpreted in conjunction with the patient's clinical presentation, history and other laboratory results. If the results are inconsistent with clinical evidence, additional testing is suggested to confirm the result. 09/28/2019 3:36 PM EST Arsenio Frost MD HISTORICAL/NON ORDERABLE LAB S Final Result Performing Organization Address [facility] Phone Number [facility] [address] from Last 3 Months or Most Recently Relevant to Health Maintenance Insurance [facility] [employer] Care Teams Surveillance System Monitor Relationship Specialty Start Date End Date Sole Wilkinson MD [address] [place] [address] DC PCP - General Family Medicine 10/19/22 Tasha Mantilla Home AttendantWood Lather 02/04/24
--- OUTSIDE RECORDS SUMMARY | 2025-06-27 16:47 | XMS_ITS | Encounter Summary ---
Author Organization [employer] Address [address] [facility] 7t [place] [address] Care Team Providers Care Health Technical Writer Name Role Phone Arsenio Frost MD Primary Care Provider Unava Sole Parsons MD Primary Care Provider [phone] Reason for Visit * Reason Onset Date Comments triage 10/13/2022 Encounter Details Date Type Department Care Team (Late st Contact Info) Description 10/13/2022 Telephone [facility] [address] [place] [address] Arsenio Frost MD triage Social History Tobacco [...] 2:00 PM EDT Medication Management [facility] [address] [place] [address] Mercedes Bhatia, Monster 230 [place] [address] 10/26/2025 10:30 AM EST Office Visit [facility] OPT[facility] [address] [place] [address] Helena Mcmanus, OD 230 [place] [address] documented as of this encounter Visit Diagnoses Not on filedocumented in this encounter Care Teams Health Technical Writer Relationship Specialty Start Date End Date Arsenio Frost MD PCP - General Family Medicine 09/28/19 10/18/22 Sole Wilkinson MD 230 [place], [place] [phone] PCP - General Family Medicine 10/19/22 Tasha Mantilla Lining MarkerSurfacer 02/04/24 documented as of this encounter
--- OUTSIDE RECORDS SUMMARY | 2025-06-27 16:47 | XMS_ITS | Encounter Summary ---
Author Organization [employer] Address [address] [facility] 7t [place] [address] Care Team Providers Care Procurement Intern Name Role Phone Sole Wilkinson MD Primary Care Provider [phone] Encounter Details Date Type Department Care Team ([facility] st Contact Info) Description 06/14/2025 Results Follow-Up [facility] 230 [place] [address] Jenelle Duque MD 230 [place] [address] Culture, Urine, Routine Social History Tobacco Use Types Packs/Day Years [...] your housing situation today? I have ron rodrigo 05/24/[address] you li [...] Description 07/04/2025 2:00 PM EDT Medication Management [facility] [address] [place] [address] Mercedes Bhatia, PharmD 230 [place] [address] 10/26/2025 10:30 AM EST Office Visit [facility] OPTOMETRY [address] [place] [address] Yonathan, Helena, OD [address] [place] [address] documented as of this encounter Visit Diagnoses Not on filedocumented in this encounter Additional Health Concerns Assessment Noted Time PHQ-9 Depression Total Score: 23 025 12:18 PM EDT documented as of this encounter Care Teams Procurement Intern Relationship Specialty Start Date End Date Sole Wlikinson MD 230 [place] [address] PCP - General Family Medicine 10/19/22 Tasha Mantilla Power Digger OperatorGardener 02/04/24 documented as of this encounter
--- OUTSIDE RECORDS SUMMARY | 2025-06-27 16:47 | XMS_ITS | Encounter Summary ---
Author Organization [employer] Address 75 [facility] 7t [place] [address] Care Team Providers Care Mamma Logist Name Role Phone Sole Wilkinson MD Primary Care Provider [phone] Reason for Visit * Reason Onset Date Comments Chart Prep 06/25/2025 Encounter Details Date Type Department Care Team ([facility] st Contact Info) Description 06/25/2025 Telephone [facility] 230 [place], [place] [phone] Sole Wilkinson MD 230 [place], [place] [phone] Chart Prep Social History Tobacco Use Types [...] Telephone Encounter - Tracey Morley [place] - 06/25/2025 1:12 PM EDT Chart Prep Labs: done Images: not applicable Referrals: appointment pending Vaccines due: Covid, Flu, PCV20, Hep B, Hep A, and HPV Screenings: colonoscopy, mammogram, and LMP Overdue care gaps: A1c, Glucose, SBIRT, and Oral health screening documented in this encounter Plan of Treatment Upcoming Encounters Date Type Department Care Team (Late st Contact Info) Description 07/04/2025 2:00 PM EDT Medication Management [facility] 230 [place], [place] [phone] Mercedes Bhatia, PharmD 230 [place], [place] [phone] 10/26/2025 10:30 AM EST Office Visit [facility] OPTOMETRY [address] [place] [address] Helena Mcmanus, OD 230 [place] [address] documented as of this encounter Visit Diagnoses Not on filedocumented in this encounter Additional Health Concerns Assessment Noted Time PHQ-9 Depression Total Score: 23 025 12:18 PM EDT documented as of this encounter Care Teams Mamma Logist Relationship Specialty Start Date End Date Sole Wilkinson MD [address] [place] [address] PCP - General Family Medicine 10/19/22 Tasha Mantilla Clerical And Office Support WorkersCare Transition Manager 02/04/24 documented as of this encounter
--- OUTSIDE RECORDS SUMMARY | 2025-06-27 16:47 | XMS_ITS | Encounter Summary ---
Author Organization [employer] Address [address] [place] [address] 7t [place] [address] Care Team Providers Care Software Specialist Name Role Phone Sole Wilkinson MD Primary Care Provider [phone] Reason for Visit * Reason Onset Date Comments Appointment Request 10/22/2022 Encounter Details Date Type Department Care Team (Late st Contact Info) Description 10/22/2022 Telephone [facility] [address] [place], [place] [phone] Sole Wilkinson MD 230 [place], [place] [phone] Appointment Request Social History Tobacco Use Types [...] cervical cancer screening) Please contact pt at [phone] documented in this encounter Plan of Treatment Upcoming Encounters Date Type Department Care Team (Late st Contact Info) Description 07/04/2025 2:00 PM EDT Medication Management [facility] [address] [place] [address] Mercedes Bhatia, PharmD 230 [place] [address] 10/26/2025 10:30 AM EST Office Visit [facility] [address] [place] [address] Helena Mcmanus, OD 230 [place] [address] documented as of this encounter Visit Diagnoses Not on filedocumented in this encounter Care Teams Software Specialist Relationship Specialty Start Date End Date Sole Wilkinson MD 230 [place] [address] PCP - General Family Medicine 10/19/22 Tasha Mantilla Quiller RunnerRelationship Manager 02/04/24 documented as of this encounter
--- OUTSIDE RECORDS SUMMARY | 2025-06-27 16:47 | XMS_ITS | Encounter Summary ---
Author Organization [employer] Address 75 [facility] 7t [place] [address] Care Team Providers Care Mangle Tender Name Role Phone Sole Wilkinson MD Primary Care Provider [phone] Reason for Visit * Reason Onset Date Comments Med Refill 03/09/2024 Encounter Details Date Type Department Care Team (Late st Contact Info) Description 03/09/2024 Refill [facility] [address] [place] [address] Sole Wilkinson MD 230 [place] [address] Social History Tobacco Use Types Packs/Day Years [...] Description 07/04/2025 2:00 PM EDT Medication Management [facility] MEDICINE [address] [place] [address] Mercedes Bhatia, PharmD 230 [place] [address] 10/26/2025 10:30 AM EST Office Visit [facility] OPTOMETRY [address] [place] [address] Yonathan, Helena, OD 230 [place] [address] documented as of this encounter Visit Diagnoses Not on filedocumented in this encounter Additional Health Concerns Assessment Noted Time PHQ-9 Depression Total Score: 22 024 10:09 AM EDT documented as of this encounter Care Teams Mangle Tender Relationship Specialty Start Date End Date Sole Wilkinson MD 230 [place] [address] PCP - General Family Medicine 10/19/22 Tasha Mantilla Invisible Braces OrthodontistDrywall Hanger Helper 02/04/24 documented as of this encounter
--- OUTSIDE RECORDS SUMMARY | 2025-06-27 16:47 | XMS_ITS | Encounter Summary ---
Author Organization [employer] Address 75 [facility] 7t [place] [address] Care Team Providers Care Life Skills Coordinator Name Role Phone Sole Wilkinson MD Primary Care Provider [phone] Reason for Visit * Reason Onset Date Comments Nurse Triage 07/19/2024 Encounter Details Date Type Department Care Team (Late st Contact Info) Description 07/19/2024 Telephone [facility] 230 [place], [place] [phone] Sole Wilkinson MD 230 [place], [place] [phone] Nurse Triage Social History Tobacco Use Types [...] EST Please see if Alyson christensen in [facility] can meet with or call patient for increased anxiety. Patient request that she meet with only her. Patient has appt with Dr. Guerrero on 07/26/24 10:15am [facility] reports clinician is out at this time [...] as previously ordered and agrees to have [facility] Clinician Alyson meet her at time of [...] Override Reason: No appointments available Override Notes: [facility] messaged with note. Video visit not offered [...] 2:00 PM EDT Medication Management [facility] 230 [place] [address] Mercedes Bhatia, RadhaD 230 [place] [address] 10/26/2025 10:30 AM EST Office Visit [facility] OPTOMETRY [address] [place] [address] Helena Mcmanus, OD 230 [place] [address] documented as of this encounter Visit Diagnoses Not on filedocumented in this encounter Additional Health Concerns Assessment Noted Time PHQ-9 Depression Total Score: 22 024 10:09 AM EDT documented as of this encounter Care Teams Life Skills Coordinator Relationship Specialty Start Date End Date Sole Wilkinson MD 230 [place] [address] PCP - General Family Medicine 10/19/22 Tasha Mantilla Coper HandStraight Pin Making Machine Operator 02/04/24 documented as of this encounter
--- OUTSIDE RECORDS SUMMARY | 2025-06-27 16:47 | XMS_ITS | Encounter Summary ---
Author Organization [employer] Address [address] [facility] [address] 7t [place] [address] Care Team Providers Care Art Department Head Name Role Phone Sole Wilkinson MD Primary Care Provider [phone] Encounter Details Date Type Department Care Team (Latest Contact Info) Description 06/27/2025 Travel Social History Tobacco Use Types Packs/Day [...] Description 07/04/2025 2:00 PM EDT Medication Management [facility] MEDICINE 230 [place] [address] Mercedes Bhatia, PharmD 230 [place] [address] 10/26/2025 10:30 AM EST Office Visit [facility] OPTOMETRY [address] [place] [address] Yonathan, Helena, OD 230 [place] [address] documented as of this encounter Visit Diagnoses Not on filedocumented in this encounter Additional Health Concerns Assessment Noted Time PHQ-9 Depression Total Score: 23 025 12:18 PM EDT documented as of this encounter Care Teams Art Department Head Relationship Specialty Start Date End Date Sole Wilkinson MD [address] [place] [address] PCP - General Family Medicine 10/19/22 Tasha Mantilla Prototype EngineerSupervisor Cabinetmaker 02/04/24 documented as of this encounter
--- OUTSIDE RECORDS SUMMARY | 2025-06-27 16:47 | XMS_ITS | Encounter Summary ---
Author Organization [employer] Address 75 [facility] 7t [place] [address] Care Team Providers Care Courtesy Bus Driver Name Role Phone Sole Wilkinson MD Primary Care Provider Reason for Visit * Reason Onset Date Comments Nurse Triage 05/21/2025 Encounter Details Date Type Department Care Team (Late st Contact Info) Description 05/21/2025 Telephone [facility] 230 [place], [place] [phone] Sole Wilkinson MD 230 [place], [place] [phone] Nurse Triage Social History Tobacco Use Types [...] every day 05/24/2025 12:18 PM EDT Meka Flowesr [place] * Feeling tired or having little [...] higher acuity questions Please contact pt at [phone]. documented in this encounter Plan of Treatment Upcoming Encounters Date Type Department Care Team (Late st Contact Info) Description 07/04/2025 2:00 PM EDT Medication Management [facility] MED[facility]INE [address] [place] [address] Mercedes Bhatia, PharmD [address] [place] [address] 10/26/2025 10:30 AM EST Office Visit [facility] OPTOMETRY [address] [place] [address] Helena Mcmanus, OD [address] [place] [address] documented as of this encounter Visit Diagnoses Not on filedocumented in this encounter Additional Health Concerns Assessment Noted Time PHQ-9 Depression Total Score: 19 024 3:58 PM EST documented as of this encounter Care Teams Courtesy Bus Driver Relationship Specialty Start Date End Date Sole Wilkinson MD [address] [place] [address] PCP - General Family Medicine 10/19/22 Tasha Mantilla Field LaborerLarry Car Operator 02/04/24 documented as of this encounter
--- OUTSIDE RECORDS SUMMARY | 2025-06-27 16:47 | XMS_ITS | Encounter Summary ---
Author Organization [employer] Address 75 [facility] 7t [place] [address] Care Team Providers Care Group Supervisor Yard Name Role Phone Sole Wilkinson MD Primary Care Provider [phone] Reason for Visit * Reason Comments Med Refill Encounter Details Date Type Department Care Team (Late st Contact Info) Description 10/08/2023 Refill [facility] [address] [place] [address] Dalila Garcia, ANP 230 [place], [place] [phone] Neck pain Social History Tobacco Use Types [...] Description 07/04/2025 2:00 PM EDT Medication Management [facility] [address] [place] [address] Mercedes Bhatia, RadhaD 230 [place] [address] 10/26/2025 10:30 AM EST Office Visit [facility] OPTOMETRY [address] [place] [address] Yonathan, Helena, OD 230 [place] [address] documented as of this encounter Visit Diagnoses Diagnosis Neck pain Cervicalgia documented in this encounter Additional Health Concerns Assessment Noted Time PHQ-9 Depression Total Score: 19 023 2:06 PM EDT documented as of this encounter Care Teams Group Supervisor Yard Relationship Specialty Start Date End Date Sole Wilkinson MD 230 [place] [address] PCP - General Family Medicine 10/19/22 Tasha Mantilla Sports Medicine CoordinatorClinical Psychologist Private Practice 02/04/24 documented as of this encounter
--- OUTSIDE RECORDS SUMMARY | 2025-06-27 16:48 | XMS_ITS | Encounter Summary ---
Author Organization [employer] Address [address] [facility] 7t [place] [address] Care Team Providers Care Lottery Manager Name Role Phone Sole Wilkinson MD Primary Care Provider [phone] Encounter Details Date Type Department Care Team ([facility] st Contact Info) Description 12/28/2023 Orders Only [facility] MED[facility]INE 230 [place], [place] [phone] Sole Wilkinson MD 230 [place], [place] [phone] Cervical radiculopathy (Primary Dx) Social History Tobacco [...] Description 07/04/2025 2:00 PM EDT Medication Management [facility] [address] [place] [address] Mercedes Bhatia, PharmD 230 [place] [address] 10/26/2025 10:30 AM EST Office Visit [facility] OPTOMETRY [address] [place] [address] Yonathan, Helena, OD 230 [place] [address] documented as of this encounter Visit Diagnoses Diagnosis Cervical radiculopathy- Primary Brachial neuritis or radiculitis nos documented in this encounter Additional Health Concerns Assessment Noted Time PHQ-9 Depression Total Score: 25 024 1:58 PM EDT documented as of this encounter Care Teams Lottery Manager Relationship Specialty Start Date End Date Sole Wilkinson MD 230 [place] [address] PCP - General Family Medicine 10/19/22 Tasha Mantilla Contact And Service Clerks SupervisorRn Care Manager 02/04/24 documented as of this encounter
--- OUTSIDE RECORDS SUMMARY | 2025-06-27 16:48 | XMS_ITS | Encounter Summary ---
Author Organization [employer] Address 75 [facility] 7t [place] [address] Care Team Providers Care Sheriff Sergeant Name Role Phone Sole Wilkinson MD Primary Care Provider Reason for Visit * Reason Onset Date Comments Med Refill 03/09/2024 Encounter Details Date Type Department Care Team (Late st Contact Info) Description 03/09/2024 Refill [facility] 230 [place] [address] Dalila Garcia, ANP 230 [place], [place] [phone] Mild intermittent asthma with (acute) exacerbation Social [...] Description 07/04/2025 2:00 PM EDT Medication Management [facility] [address] [place] [address] Mercedes Bhatia, PharmD [address] [place] [address] 10/26/2025 10:30 AM EST Office Visit [facility] OPTOMETRY [address] [place] [address] Helena Mcmanus, OD 230 [place] [address] documented as of this encounter Visit Diagnoses Diagnosis Mild intermittent asthma with (acute) exacerbation documented in this encounter Additional Health Concerns Assessment Noted Time PHQ-9 Depression Total Score: 22 024 10:09 AM EDT documented as of this encounter Care Teams Sheriff Sergeant Relationship Specialty Start Date End Date Sole Wilkinson MD 230 [place] [address] PCP - General Family Medicine 10/19/22 Tasha Mantilla Knife Machine OperatorProcessor Inspector 02/04/24 documented as of this encounter
--- OUTSIDE RECORDS SUMMARY | 2025-06-27 16:48 | XMS_ITS | Encounter Summary ---
Author Organization [employer] Address 75 [facility] 7t [place] [address] Care Team Providers Care Director Of Marketing Google Performance Ads Name Role Phone Sole Wilkinson MD Primary Care Provider [phone] Reason for Visit * Reason Comments Med Refill Encounter Details Date Type Department Care Team ([facility] st Contact Info) Description 12/27/2023 Refill [facility] 230 [place] [address] Eliza Dave MD 230 [place] [address] Mild intermittent asthma with (acute) exacerbation Social [...] Description 07/04/2025 2:00 PM EDT Medication Management [facility] [address] [place] [address] Mercedes Bhatia, PharmD 230 [place] [address] 10/26/2025 10:30 AM EST Office Visit [facility] OPTOMETRY [address] [place] [address] Yonathan, Helena, OD [address] [place] [address] documented as of this encounter Visit Diagnoses Diagnosis Mild intermittent asthma with (acute) exacerbation documented in this encounter Additional Health Concerns Assessment Noted Time PHQ-9 Depression Total Score: 25 024 1:58 PM EDT documented as of this encounter Care Teams Director Of Marketing Google Performance Ads Relationship Specialty Start Date End Date Sole Wilkinson MD 230 [place] [address] PCP - General Family Medicine 10/19/22 Tasha Mantilla Reinforcing Steel Machine OperatorAssisted Sales Representative 02/04/24 documented as of this encounter
--- OUTSIDE RECORDS SUMMARY | 2025-06-27 16:48 | XMS_ITS | Encounter Summary ---
Author Organization [employer] Address [address] [facility] [address] 7t [place] [address] Care Team Providers Care Knitting Machine Fixer Name Role Phone Sole Wilkinson MD Primary Care Provider [phone] Reason for Visit * Reason Onset Date Comments Med Refill 03/09/2024 Encounter Details Date Type Department Care Team (Late st Contact Info) Description 03/09/2024 Refill [facility] 230 [place] [address] Radha Moore FNP Mild intermittent asthma with [...] 2:00 PM EDT Medication Management [facility] 230 [place] [address] Mercedes Bhatia, PharmD 230 [place] [address] 10/26/2025 10:30 AM EST Office Visit [facility] OPTOMETRY [address] [place] [address] Yonathan, Helena, OD 230 [place] [address] documented as of this encounter Visit Diagnoses Diagnosis Mild intermittent asthma with (acute) exacerbation documented in this encounter Additional Health Concerns Assessment Noted Time PHQ-9 Depression Total Score: 22 024 10:09 AM EDT documented as of this encounter Care Teams Knitting Machine Fixer Relationship Specialty Start Date End Date Sole Wilkinson MD 230 [place] [address] PCP - General Family Medicine 10/19/[address] Production General ManagerComputer Artist 02/04/24 documented as of this encounter
--- OUTSIDE RECORDS SUMMARY | 2025-06-27 16:48 | XMS_ITS | Encounter Summary ---
Author Organization [employer] Address [address] [facility] [address] 7t [place] [address] Care Team Providers Care Internal Medicine Nurse Practitioner Name Role Phone Sole Wilkinson MD Primary Care Provider [phone] Reason for Visit * Reason Onset Date Comments appt 03/13/2024 Encounter Details Date Type Department Care Team (Late st Contact Info) Description 03/13/2024 Telephone [facility] [address] [place] [address] Gris Chandra BDSammie appt Social History Tobacco [...] Miscellaneous Notes * Telephone Encounter - Clau Gongora - 03/13/2024 9:48 AM EDT Patient is [...] Description 07/04/2025 2:00 PM EDT Medication Management [facility] 230 [place] [address] Mercedes Bhatia, PharmD [address] [place] [address] 10/26/2025 10:30 AM EST Office Visit [facility] OPTOMETRY [address] [place] [address] Helena Mcmanus, OD 230 [place] [address] documented as of this encounter Visit Diagnoses Not on filedocumented in this encounter Additional Health Concerns Assessment Noted Time PHQ-9 Depression Total Score: 22 024 10:09 AM EDT documented as of this encounter Care Teams Internal Medicine Nurse Practitioner Relationship Specialty Start Date End Date Sole Wilkinson MD [address] [place] [address] PCP - General Family Medicine 10/19/22 Tasha Mantilla Leather Goods MakerInsecticide Sprayer 02/04/24 documented as of this encounter
--- OUTSIDE RECORDS SUMMARY | 2025-06-27 16:48 | XMS_ITS | Encounter Summary ---
Author Organization [employer] Address 75 [facility] 7 [place] [address] Care Team Providers Care Roving Court Reporter Name Role Phone Sole Wilkinson MD Primary Care Provider [phone] Reason for Visit * Reason Onset Date Comments Med Refill 03/09/2024 Encounter Details Date Type Department Care Team ([facility] st Contact Info) Description 03/09/2024 Refill [facility] 230 [place] [address] Eliza Dave MD 230 [place] [address] Social History Tobacco Use Types Packs/Day Years [...] Description 07/04/2025 2:00 PM EDT Medication Management [facility] 230 [place] [address] Mercedes Bhatia, PharmD [address] [place] [address] 10/26/2025 10:30 AM EST Office Visit [facility] OPTOMETRY [address] [place] [address] Yonathan, Helena, OD 230 [place] [address] documented as of this encounter Visit Diagnoses Not on filedocumented in this encounter Additional Health Concerns Assessment Noted Time PHQ-9 Depression Total Score: 22 024 10:09 AM EDT documented as of this encounter Care Teams Roving Court Reporter Relationship Specialty Start Date End Date Sole Wilkinson MD 230 [place] [address] PCP - General Family Medicine 10/19/22 Tasha Mantilla Cigar Packer And GraderInvestigative Analyst 02/04/24 documented as of this encounter
--- OUTSIDE RECORDS SUMMARY | 2025-06-27 16:48 | XMS_ITS | Encounter Summary ---
Author Organization [employer] Address [address] [facility] [address] [place] [address] Care Team Providers Care Tour Leader Name Role Phone Sole Wilkinson MD Primary Care Provider [phone] Reason for Visit * Reason Onset Date Comments Med Refill 03/09/2024 Encounter Details Date Type Department Care Team (Late st Contact Info) Description 03/09/2024 Refill [facility] [address] [place] [address] Eliza Dave MD [address] [place] [address] Mild intermittent asthma with (acute) exacerbation Social [...] Description 07/04/2025 2:00 PM EDT Medication Management [facility] [address] [place] [address] Mercedes Bhatia, PharmD [address] [place] [address] 10/26/2025 10:30 AM EST Office Visit [facility] [address] [place] [address] Helena Mcmanus, OD [address] [place] [address] documented as of this encounter Visit Diagnoses Diagnosis Mild intermittent asthma with (acute) exacerbation documented in this encounter Additional Health Concerns Assessment Noted Time PHQ-9 Depression Total Score: 22 024 10:09 AM EDT documented as of this encounter Care Teams Tour Leader Relationship Specialty Start Date End Date Sole Wilkinson MD [address] [place] [address] PCP - General Family Medicine 10/19/22 Tasha Mantilla Physical [employer] Claims Adjuster 02/04/24 documented as of this encounter
[2025-06-27 17:28] LABS: Microalbum/Creatinine Ratio Ur 4.8 ug/mg cr (<30)
[2025-06-28 04:20] LABS: Syphilis Screen Nonreactive (Nonreactive)
[2025-06-28 04:34] LABS: HIV Num 1 0.06 S/CO (0.00-0.99); ~HepC Num1 0.13 S/CO (0.00-0.79); ~Hepatitis C Antibody Nonreactive (Nonreactive)
== END 2025-06-27 13:04 | disposition home or self-care (01) ==
LOC: HO.HHCL 13:03
PROVIDERS: PCP General Practice; Visit Provider Family Medicine
DX: Z11.3 Encounter for screening for infections with a predominantly sexual mode of transmission (principal); Z11.4 Encounter for screening for human immunodeficiency virus [HIV]; Z11.59 Encounter for screening for other viral diseases; E11.42 Type 2 diabetes mellitus with diabetic polyneuropathy; R30.0 Dysuria
CPT/HCPCS: 36415; 80053; 80061; 81001; 82043; 82570; 86780; 86803; 87389